=== PATIENT | male | born 1955 | race Caucasian/White ===

== ENCOUNTER 2016-07-03 15:55 | Observation (INO) | payer MEDICARE, MEDICAID ==
[~2016-07-03] VITALS: Ht 182.9 cm; Wt 118.4 kg
[~2016-07-03 15:55] MED LIST: ABILIFY2 MG; ACETAMINOPHEN325 M2 PO; ADVAIR 250/5028 PUFF IN; AMITRIPTYLINE50 MG PO; CARAFATE1 GM PO; CEFEPIME1 GM/50 ML IV; CEFTIN500 MG PO; CELEXA40 MG PO; CHEWABLE ASPIRI81 MG PO; CITALOPRAM20 MG PO; COUMADIN5 MG PO; COUMADIN7.5 MG PO; DIAZEPAM5 M1 PO; DICYCLOMINE HCL10 MG PO; DUONEB 3 MG/3 ML3 ML IH; GABAPENTIN 600600 MG PO; GABAPENTIN300 MG PO; GUAIFENESIN LA600 MG PO; IPRATROPIUM BROM3 M1 IN; KEFLEX 500MG.500 MG PO; LASIX 20MG. TAB20 MG PO; LEVAQUIN 5500 MG/100 IV; LEVAQUIN500 MG PO; LISINOPRIL 10MG10 MG PO; LOVENOX 4040 MG/0.4 SC; MEDROL 4MG. DOSE4 MG PO; METFORMIN500 MG PO; METHYLPREDNISOLONE IV; METOPROLOL25 MG PO; METROGEL0.75% EX; MORPHINE SULFAT PO; MORPHINE SULFAT30 M3 PO; MOTRIN800 MG PO; MS CONTIN 30MG.30 MG PO; NICOTINE PATCH;21 MG TD; NYSTATIN 1100000 UNI PO; OMEPRAZOLE40 MG PO; PLAVIX75 MG PO; POTASSIUM CHLO10 ME3 PO; PREDNISONE 10MG10 MG PO; PREDNISONE 5MG.5 MG PO; SEROQUEL 25MG T25 MG PO; SIMVASTATIN40 MG PO; SINGULAIR10 MG PO; SPIRIVA HA1 PUFF/INH IH; VALIUM 5MG TABLE5 MG PO; VALIUM5 MG PO; VITAMIN C1000 M1 PO
[2016-07-03 15:56] VITALS: BP 153/76
[2016-07-03 16:22] LABS: HEMOGLOBIN 13.2 g/dL (14.1-18.0); LYMPH # 2.3 K/mm3 (0.7-4.5); LYMPH % 21.3 % (10-50)
[2016-07-03 16:45] LABS: BUN 9 mg/dL (7-18)
[2016-07-03 16:46] LABS: GFR (ESTIMATED) 76 ML/MIN (>60)
--- NOTE | 2016-07-03 16:51 | Emergency Room Report ---
History of Present Illness Time Seen by 1601 Presenting Problem in Triage Pt arrived:Wheelchair Presenting Problem:PT C/O S DAYS INCREASING SOA. PT PRESENTS WITH PRODUCTIVE COUGH OF THICK YELLOW SPUTUM AND DIAPHORETIC. PT WAS SEEN IN DR VIVAR'S OFFICE THIS AM D/T OPIATE INDUCED CONSTIPATION. 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 N Clinical Suspician of Infection? N Mental Status: 1 - Regular (Normal Baseline) Sepsis Risk:Severe Sepsis Risk Have you (or family members/close friends) recently traveled outside the [place]? N If Yes, where/when: Have you had exposure to infectious disease within the past month? N TB? Other? Specify: Comment The patient complains of shortness of breath and a productive cough. He has had a low-grade fever and rhinorrhea. This started on Saturday 5 days ago. He saw his PCP today for constipation and says he also mentioned to the productive cough was not started on medications. He was sent here for an acute abdominal series. After having this done he was walking out of the hospital when he began getting very short of breath and sweaty. He has severe chronic obstructive pulmonary disease and is on oxygen 2 L continuously. He uses nebulizer treatments at home. ALLERGIES Coded Allergies: Penicillins (Mild, 07/03/16) Sulfa (Sulfonamide Antibiotics) (Mild, 07/03/16) Home Medications Active Scripts Metformin HCL (Metformin) 500 MG PO BID #60 TAB Ref 2 Prov: 10/05/12 Reported Medications FLUTICASONE/SALMETEROL (Advair 250-50 Diskus) 1 PUFF IN BID AMITRIPTYLINE HCL (Amitriptyline HCl) 50 MG PO QHS Gabapentin (Gabapentin 300MG) 600 MG PO TID Furosemide (Lasix 20MG) 20 MG PO DAILY CITALOPRAM HYDROBROMIDE (Citalopram HBr) 40 MG PO DAILY #30 TAB MORPHINE SULFATE SR/ER (Morphine Sulfate ER) 60 MG PO Q12H Diazepam (Valium 5MG) 5 MG PO BIDP Albuterol/Ipratropiu (Duoneb) 3 ML IH BID Sucralfate (Carafate) 1 GM PO BID Ascorbic Acid (Vitamin C) 1,000 mg PO DAILY Lactulose (Lactulose) 10 GM PO BID #300 Gabapentin 300 MG PO BID #540 Aspirin (Aspirin, Chewable) 81 MG PO DAILY Clopidogrel Bisulfate (Plavix) 75 MG PO DAILY LISINOPRIL (Lisinopril) 10 MG PO DAILY Metoprolol Tartrate (Metoprolol) 12.5 MG PO BID Omeprazole (Omeprazole 40MG) 40 MG PO DAILY Simvastatin (Simvastatin 40MG Tab) 40 MG PO QHS Tiotropium [place] (Spiriva) 1 PUFF IH DAILY History Medical History General CAD? No Angina: No NC: Yes Hypertension? Yes Hyperlipidemia? Yes CHF? No DVT? No PE? No COPD? Yes Asthma? No Anemia? No GERD? No Gastric ulcers? No GI Bleed? No Hernia? Yes Thyroid Problems? No Hypothyroidism? No CVA? No Seizures? No Diabetes? No Renal Insuffiency? No End Stage Renal Disease? No UTI? No Stones? No BPH? No GB Disease: Yes Nephritic Syndrome? No Asplenia? No Hepatitis? No Sickle Cell Disease? No Arthritis? No Migraines? No Cataracts? No Glaucoma? No MRSA? No HIV? No TB? No Anxiety? No Depression? No Cancer? No More? No Immunization Hx DT/Tetanus 5-10 YRS Flu UNKNOWN Pneumonia Received In Past Surgical Hx Previous Surgery?Y HERNIA X3 NECK FUSION 2 VERTEBRAE Family History Family Hx Diabetes Yes CAD Yes Hypertension Yes Hyperlipidemia Yes Cancer Yes TB No Social History Smoking Hx Smoker: Former Smoker Tobacco: Yes Type Cigarettes Alcohol Alcohol: No Review of Systems All Other Systems Reviewed and Negative Constitutional diaphoresis, fever ENT nose discharge. Respiratory cough, shortness of breath Cardiovascular denies chest pain Gastrointestinal denies diarrhea, denies vomiting Physical Exam Vital Signs Vital Signs Date Time Temp Pulse Resp B/P Pulse O2 O2 Flow FiO2 Ox Delivery Rate 07/03 1824 99.6 114 18 124/65 91 3 07/03 1823 99.6 114 18 124/65 91 3 07/03 1758 117 07/03 1758 99.6 117 18 120/69 07/03 1758 96 OXYGEN 07/03 173 117 18 120/69 96 2 07/03 1637 117 16 99/45 95 2 07/03 1556 99.6 130 24 153/76 88 2 General Appearance mild distress, obese Eye Exam - bilateral eye normal exam, bilateral eye PERRL, bilateral eye EOMI Ear, Nose, Throat hearing grossly normal, normal ENT inspection Neck normal inspection, non-tender, supple, full range of motion Respiratory Status Yes: trachea midline, chest symmetrical. No: respiratory distress (tachypnea). Lung Sounds bilateral: rhonchi, wheezing. 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 No Results/Orders Laboratory Tests 07/03/16 1610: Lactic Acid 3.2 H 07/03/16 1610: Sodium 140, Potassium 4.0, Chloride 102, Carbon Dioxide 27, BUN 9, Creatinine 1.0, Estimated Creat Clear 131, Estimated GFR (MDRD) 76, Glucose 112 H, Calcium 9.1, Total Bilirubin 0.4, AST 10 L, ALT 22, Alkaline Phosphatase 136 H, Creatine Kinase 72, CK-MB (CK-2) Rel Index 3.2, CK and CKMB Interp 2.3, Troponin I < 0.02, Total Protein 7.6, Albumin 2.9 L, Globulin 4.7 H, Albumin/Globulin Ratio 0.6 L, WBC 10.6, RBC 4.66, Hgb 13.2 L, Hct 40.3 L, MCV 86.6, RDW 13.4, Plt Count 362, MPV 5.5 L, Gran % 71.5, Gran # 7.6, Lymphocytes % 21.3, Monocytes % 4.8, Eosinophils % 2.1, Basophils % 0.3, Lymphocytes # 2.3, Monocytes # 0.5, Eosinophils # 0.2, Basophils # 0.0, PUBS MCHC 32.8, MCH 28.4 Current Medication Orders Sig/Josephine Start time Last Medication Dose Route Stop Time Status Admin Aspirin 81 MG DAILY 07/04 899 UNV PO Citalopram 40 MG DAILY 07/04 899 UNV Hydrobromide PO Clopidogrel Bisulfate 75 MG DAILY 07/04 09 UNV PO Levofloxacin/Dextrose 150 ML DAILY 07/04 09 UNVr IV 07/08 1030 Lisinopril 10 MG DAILY 07/04 899 UNV PO Amitriptyline HCl 50 MG QHS 07/03 2100 UNV PO Gabapentin 600 MG TID 07/03 2100 UNV PO Metformin HCl 500 MG BID 07/03 2100 UNV PO Methylprednisolone 80 MG Q8 07/03 2100 UNV Sodium Succinate IV Metoprolol Tartrate 12.5 MG BID 07/03 2100 UNV PO Pantoprazole Sodium 40 MG QHS 07/03 2100 UNV PO Sucralfate 1 GM BID 07/03 2100 UNV PO Albuterol/Ipratropium 3 ML QIDRT 07/03 2000 UNV INH Morphine Sulfate 60 MG Q12H 07/03 1830 UNV 07/03 PO 1840 Acetaminophen 650 MG Q4HP PRN 07/03 1815 UNV PO Nicotine 21 MG DAILYP PRN 07/03 1815 UNV TD Sodium Chloride 10 ML PRN PRN 07/03 1815 UNV IV Albuterol/Ipratropium 0 .STK-MED ONE 07/03 1739 DC INH Albuterol/Ipratropium 3 ML ONCE ONE 07/03 1730 DC 07/03 INH 07/03 1731 1741 Levofloxacin/Dextrose 150 ML ONCE ONE 07/03 1730 DC 07/03 IV 07/03 1859 1731 Methylprednisolone 125 MG ONCE ONE 07/03 1730 DC 07/03 Sodium Succinate IV 07/03 1731 1732 Levofloxacin/Dextrose 150 ML .STK-MED ONE 07/03 1729 DC IV Methylprednisolone 0 .STK-MED ONE 07/03 1729 DC Sodium Succinate .ROUTE Sodium Chloride 10 ML PRN PRN 07/03 1615 AC IV 07/04 1607 Orders Procedure Date/time Status DIET-REGULAR ( TOLERATED) 07/04 B Active RT Aerosol Treatment, Provide 07/03 1744 Active Decision to admit 07/03 1726 Active RT REQUEST DUONEB 07/03 1718 Active LACTIC ACID FOLLOW UP 07/03 1639 Active 12 LEAD EKG-MATT (INITIAL) 07/03 1608 Active ELECTROCARDIOGRAM REQUEST 07/03 1608 Active IV SALINE LOCK 07/03 1608 Active OXYGEN PER NURSE 07/03 1608 Active CULTURE, SPUTUM 07/03 1608 Active CULTURE, BLOOD 07/03 1608 Active LACTIC ACID 07/03 1608 Complete CBC WITH AUTO DIFF 07/03 1608 Complete CARDIAC ENZYMES 07/03 1608 Complete CHEM 12 PROFILE 07/03 1608 Complete ADMIT PATIENT 07/03 UNK Active PULSE OXIMETRY REQUEST 07/03 UNK Active OXYGEN REQUEST 07/03 UNK Active RT REQUEST DUONEB 07/03 UNK Active VITAL SIGNS 07/03 UNK Active POM NURSE KASSI HOSE ORDER 07/03 UNK Active IV SALINE LOCK 07/03 UNK Active CODE STATUS 07/03 UNK Active PATIENT ACTIVITY ORDER 07/03 UNK Active CM/EKG CM/EKG Comments EKG interpreted by Uday Marmolejo MD: Rhythm: sinus tachycardia Rate: 120 [place]: normal Ectopy: Occasional unifocal PVCs Conduction: Normal ST Segment Changes: none T Wave Changes: none Q Waves: none No evidence of acute ischemia or injury Baseline artifact present, but I consider the EKG adequate for accurate interpretation. XRAY/CT/US XRAY/CT/US XRAY abdomen Comment X-ray interpreted by radiologist: No pneumonia. Scarring and RIGHT base. Constipation. Progress - 5:24 PM: I have discussed the case with Dr. Vivar who agrees to admit the patient to the hospital. We discussed the patient's clinical information, including history, exam, laboratory and radiology results and ED course. Per hospital procedure, I will write temporary bridge inpatient orders on the patient. Specific orders requested by the admitting physician: Levaquin, steroids, nebulizer treatments Departure Departure Disposition Still a Patient Clinical Impression Primary Impression: Chronic obstructive pulmonary disease with (acute) exacerbation Secondary Impressions: Acute bronchitis Qualifiers: Bronchitis organism: unspecified organism Qualified Code: J20.9 - Acute bronchitis, unspecified Condition STABLE Referrals Chelsea Vivar MD ([facility]) ED Critical Care Critical Care No at 2017
[2016-07-03 17:58] VITALS: BP 120/69
[2016-07-03] MEDS ORDERED: LACTULOSE10 GM/15 M PO (18:15)
[2016-07-03] MEDS ORDERED: GABAPENTIN300 M1 PO (18:16)
[2016-07-03 18:46] VITALS: BP 116/59
[2016-07-03 20:30] VITALS: BP 133/72
[2016-07-03 21:12] VITALS: BP 133/72
[2016-07-04 04:39] VITALS: BP 108/48
[2016-07-04 07:59] VITALS: BP 140/92
--- NOTE | 2016-07-04 08:10 | PHARMACY CLINIC NOTE ---
Patient Demographics Patient Demographics Admission date: 07/03/16 Date: 07/04/16 Time: 0809 Allergies Coded Allergies: Penicillins (Mild, 07/03/16) Sulfa (Sulfonamide Antibiotics) (Mild, 07/03/16) HEIGHT- FT: 6 IN: 0.00 K.389 VTE General Information Labs: Laboratory Tests 07/03 1610 Hematology Hgb (14.1 - 18.0 g/dL) 13.2 L Hct (42.0 - 52.0 %) 40.3 L Plt Count (142 - 424 K/mm3) 362 Disclaimer The following section includes nursing documentation that has been pulled in for pharmacy review. Patient's VTE score: 4 Patient's VTE Risk: LOW RISK Clinical trial participant? No VTE prophylaxis [id number] [id number] VTE prophylaxis ordered? Yes Type of prophylaxis/treatment: KASSI at 0809
[2016-07-04] MEDS ORDERED: SINGULAIR 10 MG10 MG PO (08:45)
[2016-07-04] MEDS ORDERED: CILOSTAZOL50 MG PO (08:47)
--- NOTE | 2016-07-04 09:05 | HISTORY AND PHYSICAL REPORT ---
History and Physical ([facility]) Date of admission: 07/03/16 Chief complaint: Shortness of breath History: History of Present Illness: Mr Novak is a 61 year old male with a history of O2 dependent COPD, chronic low back pain, chronic constipation, PVD, and Type 2 DM who was seen in the office of [facility] 07/03/16 for constipation. X-rays were ordered. When walking in hallway to have x-ray done, he became extremely SOB with wheezing and thus went to the ER. After evaluation in the ER, he was admitted for further evaluation and treatment. This AM he is not feeling any better. He had a bad night due to continued SOB, constipation and muscle spasms in his back. Past Medical History: Medical History: CAD? Yes Angina: No ND: Yes Hypertension? Yes Hyperlipidemia? Yes CHF? No DVT? No PE? No COPD? Yes Asthma? No Anemia? No GERD? Yes Gastric ulcers? No GI Bleed? No Hernia? Yes Thyroid Problems? No Hypothyroidism? No CVA? No Seizures? No Diabetes? Yes Renal Insuffiency? No UTI? No Stones? No BPH? No GB Disease: Yes Nephritic Syndrome? No Asplenia? No Hepatitis? No Sickle Cell Disease? No Arthritis? No Migraines? No Cataracts? No Glaucoma? No MRSA? No HIV? No TB? No Anxiety? No Depression? Yes Cancer? No More? No Additional hx: PVD Surgical history: Previous Surgery?Y HERNIA X3 NECK FUSION 2 VERTEBRAE Medications: Active Scripts Metformin HCL (Metformin) 500 MG PO BID #60 TAB Ref 2 Prov: 10/05/12 Reported Medications Montelukast Sodium (Singulair 10MG) 10 MG PO DAILY Cilostazol 50 MG PO BID FLUTICASONE/SALMETEROL (Advair 250-50 Diskus) 1 PUFF IN BID AMITRIPTYLINE HCL (Amitriptyline HCl) 50 MG PO QHS Furosemide (Lasix 20MG) 20 MG PO DAILY CITALOPRAM HYDROBROMIDE (Citalopram HBr) 40 MG PO DAILY #30 TAB MORPHINE SULFATE SR/ER (Morphine Sulfate ER) 60 MG PO Q12H Diazepam (Valium 5MG) 5 MG PO BIDP Albuterol/Ipratropiu (Duoneb) 3 ML IH BID Sucralfate (Carafate) 1 GM PO BID Ascorbic Acid (Vitamin C) 1,000 mg PO DAILY Lactulose (Lactulose) 10 GM PO BID #300 Gabapentin 300 MG PO BID #540 Aspirin (Aspirin, Chewable) 81 MG PO DAILY Clopidogrel Bisulfate (Plavix) 75 MG PO DAILY LISINOPRIL (Lisinopril) 10 MG PO DAILY Metoprolol Tartrate (Metoprolol) 12.5 MG PO BID Omeprazole (Omeprazole 40MG) 40 MG PO DAILY Simvastatin (Simvastatin 40MG Tab) 40 MG PO QHS Tiotropium [place] (Spiriva) 1 PUFF IH DAILY Discontinued Reported Medications Gabapentin (Gabapentin 300MG) 600 MG PO TID Allergies: Coded Allergies: Penicillins (Mild, 07/03/16) Sulfa (Sulfonamide Antibiotics) (Mild, 07/03/16) Family History: Family history: Postive for: CAD, DM, HTN, cancer. Social History: Smoking Hx Tobacco: Yes Smoker: Former Smoker Type: Cigarettes Packs/day: N/A Are you exposed to second hand Yes Alcohol: Alcohol: No Hx of Drug Use: Drug Use? No Patien't marital status is: Review of Systems: Constitutional Positive for: weak. ENT No: ear ache, sore throat. Cardiovascular Positive for: edema. No: chest pain, palpitations. Respiratory Positive for: shortness of air, non-productive, productive cough (sputum). GI Positive for: GERD, constipation. No: abdominal pain, diarrhea, nausea, vomitting. (male) No: hematuria. Neurological No: confusion, dizziness, headache, seizure, syncope. Musculoskeletal Positive for: joint pain, lumbar pain. Psychiatric Positive for: depression. Physical Exam: Vital signs: 1ST Vital Signs Result Date Time Pulse Ox 88 07/03 1556 B/P 153/76 07/03 1556 O2 Flow Rate 2 07/03 1556 Temp 99.6 07/03 1556 Pulse 130 07/03 1556 Resp 24 07/03 1556 O2 Delivery OXYGEN 07/03 1758 Exam: General appearance: alert, no acute distress Eyes: anicteric, pupils reactive to light Cardiovascular: regular rate & rhythm Respiratory: decreased BS posteriorly; crackles in right base ABD: soft, bowel sounds present, distended, hernia Extremities: no peripheral edema Neuro: alert, oriented, speech clear, slight tremor Lab data: Labs: Laboratory Tests 07/03/162022: Lactic Acid 1.1 07/03/161609: Lactic Acid 3.2 H 07/03/161609: Sodium 140, Potassium 4.0, Chloride 102, Carbon Dioxide 27, BUN 9, Creatinine 1.0, Estimated Creat Clear 131, Estimated GFR (MDRD) 76, Glucose 112 H, Calcium 9.1, Total Bilirubin 0.4, AST 10 L, ALT 22, Alkaline Phosphatase 136 H, Creatine Kinase 72, CK-MB (CK-2) Rel Index 3.2, CK and CKMB Interp 2.3, Troponin I < 0.02, Total Protein 7.6, Albumin 2.9 L, Globulin 4.7 H, Albumin/Globulin Ratio 0.6 L, WBC 10.6, RBC 4.66, Hgb 13.2 L, Hct 40.3 L, MCV 86.6, RDW 13.4, Plt Count 362, MPV 5.5 L, Gran % 71.5, Gran # 7.6, Lymphocytes % 21.3, Monocytes % 4.8, Eosinophils % 2.1, Basophils % 0.3, Lymphocytes # 2.3, Monocytes # 0.5, Eosinophils # 0.2, Basophils # 0.0, PUBS MCHC 32.8, MCH 28.4 Microbiology 07/03 1609 BLOOD: Anaerobic Blood Culture - RECD 07/03 161 BLOOD: Aerobic Blood Culture - RECD 07/03 1610 BLOOD: Anaerobic Blood Culture - RECD 07/03 161 BLOOD: Aerobic Blood Culture - RECD 07/03 1608 SPUTUM: Sputum Culture - ORD 07/03 160 SPUTUM: Gram Stain - ORD Radiology results: Results: 07/03/16 acute abdominal series IMPRESSION: 1. COPD with chronic pulmonary parenchymal changes. 2. Constipation. Nonspecific bowel gas pattern. Diagnosis(es): 1. Chronic obstructive pulmonary disease with (acute) exacerbation Status: Acute 2. PVD Status: Chronic 3. Diabetes mellitus type 2 Status: Chronic 4. Constipation Status: Acute 5. Chronic obstructive lung disease Status: Chronic 6. Benign essential hypertension Status: Chronic Plan: Lactulose and supp for constipation; repeat CXR; steriods and ABX; sliding scale insulin (Stephanie Ann APRN) Date of admission: 07/03/16 Chief complaint: Shortness of breath Diagnosis(es): 1. Chronic obstructive pulmonary disease with (acute) exacerbation Status: Acute 2. PVD Status: Chronic 3. Diabetes mellitus type 2 Status: Chronic 4. Constipation Status: Acute 5. Chronic obstructive lung disease Status: Chronic 6. Benign essential hypertension Status: Chronic Plan: Pt seen and examined. Concur with above assessment and plan. (Chelsea Vivar MD) at 0905 at 0908
[2016-07-04 09:44] VITALS: BP 140/92
--- NOTE | 2016-07-04 09:49 | RADIOLOGY REPORT PS360 ---
CHEST(2 VIEWS-NOT PORTABLE) HISTORY: COPD; SOB ORDERING PHYSICIAN: Chelsea Vivar MD PATIENT AGE: 61 years COMPARISON: 10/02/2012 FINDINGS: There is mild hyperinflation suggesting COPD. Atelectatic or fibrotic changes are present in both right and left lower lung zones. There is some increased density in the left infrahilar region which may be due to atelectasis or infiltrate. The right hilum is prominent but not significant change from the previous exam. Bone plate is present over the lower cervical spine. IMPRESSION: COPD with chronic changes with atelectasis or infiltrate in the left lung base
[2016-07-04 15:59] VITALS: BP 122/64
[2016-07-04 20:37] VITALS: BP 117/67
[2016-07-04 22:27] VITALS: BP 117/67
[2016-07-05 04:47] VITALS: BP 120/72
[2016-07-05 07:30] VITALS: BP 111/64
--- NOTE | 2016-07-05 08:22 | ACUTE CARE PROGRESS NOTE (QUA) ---
Progress Notes Subjective Date 07/05/16 Time 0819 Note Pt feeling better today. Had a BM and SOA has improved. Still with some slight wheezing and dyspnea on exertion. Slept off and on and ate all of his breakfast. Objective Findings Last VS-Temp:97.7 B/P:111/64 Pulse:113 Resp:20 SaO2:93 OXYGEN Last weight lbs:261 oz:0 K.389 Method:Bed Scales Laboratory Tests 07/04/168: POC Glucose 233 H 07/04/16 1616: POC Glucose 279 H Microbiology 07/04 2121 SPUTUM: Sputum Culture - ORD 07/04 2121 SPUTUM: Gram Stain - ORD Exam General appearance: alert, awake, no acute distress Cardiovascular: regular rate & rhythm Respiratory: faint expiratory wheezes, no rales ABD: non-distended, normal bowel sounds, no rebound, soft, no tenderness, no guarding Extremities: no peripheral edema Assessment/Plan Problem List 1. Community acquired pneumonia Status: Acute 2. Chronic obstructive pulmonary disease with (acute) exacerbation Status: Acute 3. PVD Status: Chronic 4. Diabetes mellitus type 2 Status: Chronic 5. Constipation Status: Acute 6. Chronic obstructive lung disease Status: Chronic 7. Benign essential hypertension Status: Chronic Plan: Pt has improved. Stable to be discharged home on abx. Patient has oxygen at home. This inpt stay is expected to cross 2 MNs from start of care No (July Bradley) Subjective Date 07/05/16 Time 0828 Assessment/Plan Problem List 1. Community acquired pneumonia Status: Acute 2. Chronic obstructive pulmonary disease with (acute) exacerbation Status: Acute 3. PVD Status: Chronic 4. Diabetes mellitus type 2 Status: Chronic 5. Constipation Status: Acute 6. Chronic obstructive lung disease Status: Chronic 7. Benign essential hypertension Status: Chronic Plan: Concur with plans for discharge as outlined above. F/u in 1 week. (Chelsea Vivar MD) at 0821 at 0828
[2016-07-05] MEDS ORDERED: CEFUROXIME AXE500 MG PO (08:25)
[2016-07-05] MEDS ORDERED: ZITHROMAX Z PA250 MG PO (08:26)
[2016-07-05] MEDS ORDERED: LINZESS290 MCG PO (08:27)
[2016-07-05 08:40] VITALS: BP 111/64
[2016-07-05 09:57] VITALS: BP 111/64
--- OUTSIDE RECORDS SUMMARY | 2016-07-07 21:08 | External Medical Summary Rpt ---
Author Author , Organization [employer] Address Unknown Phone Unavailable Care Team Providers Care Start Up Specialist Name Role Phone [facility]available [facility] Unavailable [facility] Un[facility] Un[facility] Unavailable [facility] KIAN AUGUST, Unavailable Unavailable July AUGUST [facility] Un[facility] Un[facility], [facility] MARLEY HAYNES, MARLEY HAYNES Unavailable Unavailable Chelsea Vivar MD, Unavailable Unavailable Chelsea Vivar MD [facility] Unavailable Unavailable EQUIPME, [facility] Unavailable Unavailable [facility], [facility], Unavailable Unavailable [facility] Purpose Continuity of Care Document - 06-10-2012 through 2016 Problems Code Diagnosis DOS Provider Status J449 CHRONIC 04-25-2016 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 [id number] SPONDYLOSIS 11-13-2015 [facility] W/O HOME 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 M545 LOW BACK 11-13-2015 [facility] PAIN [facility] MEDICAL EQUIPME E119 TYPE 2 10-26-2015 [facility] DIABETES PHARMACY MELLITUS WITHOUT COMPLICATIO NS 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 R030 ELEVATED 07-15-2015 [facility] URE READING INC WITHOUT DX HTN 496 CHRONIC 11-25-2014 [facility] MEDICAL NEC EQUIPME 4439 UNSPECIFIED 09-08-2014 [facility] DISEASE 2724 OTHER AND 08-25-2014 [facility]PEC[facility] HYPERLIPIDE BRY 52722 OSTEOARTHRO 08-25-2014 [facility]PEC [facility] WHETHER INC GEN/LOC UNSPEC SITE 7962 ELEVATED BP 08-25-2014 [facility] WITHOUT DX INC HYPERTENSIO N V7644 SPECIAL 08-25-2014 [facility] NEOPLASM OF PROSTATE V5861 LONG-TERM 05-25-2014 [facility] (CURRENT) PHYSICIANS USE OF [place] ANTICOAGULA NTS 87474 DIAB W/O 04-03-2014 CLINIC COMP TYPE PHARMACY II/UNS NOT STATED UNCNTRL 4019 UNSPECIFIED 01-30-2014 [facility] HYPERTENSIO INC N [id number] [facility] 272.4 Hyperlipide [facility] 276.1 Hyponatremi [facility] 276.8 Hypokalemia [facility] 401.1 Benign [facility] n [id number] Diabetes [place] mellitus [address] 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.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 482.1 Pneumonia [place] due to [facility] [address] [facility] [id number] Active [facility] 593.9 Renal [place] impairment [facility] 780.57 Sleep apnea [facility] 799.02 Hypoxia [facility] [id number] Chronic [facility] E11.9 TYPE 2 DIABETES MELLITUS WITHOUT COMPLICATIO NS E78.4 OTHER HYPERLIPIDE [facility] J20.9 ACUTE BRONCHITIS, UNSPECIFIED J44.1 CHRONIC OBSTRUCTIVE PULMONARY DISEASE W (ACUTE) EXACERBATIO N Z12.5 ENCOUNTER FOR SCREENING FOR MALIGNANT NEOPLASM OF PROSTATE Allergies, Adverse Reactions, Alerts Type Drug Allergy Adverse Reaction to Substance Substance Reaction Severity PCN (penicillin) I-HIVES Intermediate Penicillin Unknown Unknown SULFA (sulfonamide) I-HIVES Intermediate Penicillin G Unknown Unknown Clinical Alert Notifications Alert Diabetes: no A1C in the last 6 months Diabetes: no eye exam in the last 365 days Diabetes: no influenza vaccine in the last 365 days Diabetes: no urine protein screening in the last 365 days Medications Na ND Rx Da Fi Fi Am Da Di Ph RX Ph St me C No te ll ll ou ys ag ar # ys at rm s nt no ma ic us Or Da si cy ia de te s n re d LE 68 07 0 No VO 08 -2 FL 40 8- Lo OX 48 20 ng AC 30 13 er IN 1 Ac 75 ti 0 ve MG TA BL ET LE 00 07 1 No XA 45 -2 ND 62 7- Lo O 02 20 ng 20 06 13 er 3 MG Ac ti TA ve BL ET ND 00 07 1 No ED 05 -2 NI 40 7- Lo SO 01 20 ng NE 72 13 er 0 10 Ac ti MG ve TA BL ET SO 00 07 1 No IRMA 00 -2 -M 90 6- Lo ED 03 20 ng RO 92 13 er L 8 40 Ac ti MG ve AL CO 00 07 2 No UM 05 -2 AD 60 6- Lo IN 17 20 ng 5 27 13 er 0 MG Ac ti TA ve BL ET LE 68 07 1 No VO 08 -2 FL 40 6- Lo OX 48 20 ng AC 30 13 er IN 1 Ac 75 ti 0 ve MG TA BL ET HU 00 07 2 No MA 00 -2 LO 27 6- Lo G 51 20 ng 10 01 13 er 0 7 UN Ac IT ti S/ ve ML AL FS 07 2 No -2 BL 6- Lo OO 20 ng D 13 er MAS GA Ac R ti ve SO 00 07 1 No IRMA 00 -2 -M 90 5- Lo ED 04 20 ng RO 72 13 er L 2 12 Ac 5 ti MG ve AL LO 00 07 2 No VE 07 -2 NO 50 5- Lo X 62 20 ng 40 04 13 er 1 MG Ac /0 ti .4 ve ML SY RI NG E LE 00 07 1 No XA 45 -2 ND 62 5- Lo O 02 20 ng 20 06 13 er 3 MG Ac ti TA ve BL ET MO 68 07 3 No NT 08 -2 EL 40 5- Lo UK 62 20 ng 00 13 er T 1 SO Ac D ti 10 ve MG TA BL ET SP 00 07 3 No IR 59 -2 IV 70 5- Lo A 07 20 ng 18 57 13 er 5 MC Ac G ti CP ve -H AN DI POON LE R MO 00 07 3 No RP 40 -2 HI 68 5- Lo NE 33 20 ng 00 13 er MAS 1 LF Ac ti ER ve 30 MG TA BL ET CO 00 07 3 No UM 05 -2 AD 60 5- Lo IN 17 20 ng 37 13 er 7. 5 5 Ac MG ti ve TA BL ET SO 00 07 0 No IRMA 00 -2 -M 90 4- Lo ED 04 20 ng RO 72 13 er L 2 12 Ac 5 ti MG ve AL MA 00 07 0 No PA 90 -2 P 41 4- Lo 32 98 20 ng 5 26 13 er MG 1 Ac TA ti BL ve ET Sa 63 07 4 No li 80 -2 ne 70 4- Lo 10 20 ng Fl 07 13 er us 5 h Ac 10 ti ML ve Sy ri ng e 63 07 4 No PI 73 -2 RI 90 4- Lo N 43 20 ng 81 40 13 er 1 MG Ac ti CH ve EW AB LE TA BL ET CL 51 07 4 No OP 07 -2 ID 90 4- Lo OG 55 20 ng RE 72 13 er L 0 75 Ac ti MG ve TA BL ET FU 51 07 4 No RO 07 -2 SE 90 4- Lo OH 07 20 ng DE 22 13 er 0 20 Ac ti MG ve TA BL ET Li 00 07 4 No si 17 -2 no 23 4- Lo pr 75 20 ng il 91 13 er 0 10 Ac MG ti ve Ta bl et MO 00 07 1 No RP 40 -2 HI 68 4- Lo NE 33 20 ng 00 13 er MAS 1 LF Ac ti ER ve 30 MG TA BL ET IP 00 07 4 No RA 48 -2 T- 70 4- Lo AL 20 20 ng BU 10 13 er T 1 0. Ac 5- ti 3( ve 2. 5) MG /3 ML GA 62 07 4 No BA 75 -2 PE 60 4- Lo NT 20 20 ng IN 20 13 er 1 60 Ac 0 ti MG ve TA BL ET ON 00 07 4 No DA 64 -2 NS 16 4- Lo ET 08 20 ng RO 02 13 er N 5 HC Ac L ti 4 ve MG /2 ML AL AM 51 07 4 No IT 07 -2 RI 90 4- Lo PT 13 20 ng YL 32 13 er IN 0 E Ac HC ti L ve 50 MG TA B ME 51 07 4 No TO 07 -2 ND 90 4- Lo OL 25 20 ng OL 52 13 er 0 TA Ac RT ti RA ve TE 25 MG TA B PA 51 07 4 No NT 07 -2 OP 90 4- Lo RA 05 20 ng ZO 12 13 er LE 0 Ac SO ti D ve DR 40 MG TA B ND 51 07 4 No AV 07 -2 90 4- Lo TA 78 20 ng TI 22 13 er N 0 SO Ac DI ti UM ve 40 MG TA B LE 25 07 0 No VO 02 -2 FL 10 4- Lo OX 13 20 ng AC 28 13 er IN 3 Ac 75 ti 0 ve MG /1 50 ML -D 5W CE 60 07 4 No FE 50 -2 PI 50 4- Lo ME 83 20 ng 40 13 er HC 4 L Ac 1 ti GM ve AL SO 00 07 4 No DI 40 -2 UM 97 4- Lo 98 20 ng CH 43 13 er LO 6 RI Ac DE ti ve 0. 9% SO IRMA TI ON Li 00 06 4 No si 17 -1 no 23 2- Lo pr 75 20 ng il 91 13 er 0 10 Ac MG ti ve Ta bl et CO 00 06 4 No UM 05 -1 AD 60 2- Lo IN 17 20 ng 5 27 13 er 0 MG Ac ti TA ve BL ET HE 00 06 4 No PA 40 -1 RI 97 2- Lo N- 76 20 ng D5 10 13 er W 3 25 Ac ,0 ti 00 ve UN IT /5 00 ML FU 51 06 4 No RO 07 -1 SE 90 2- Lo OH 07 20 ng DE 22 13 er 0 20 Ac ti MG ve TA BL ET Li 00 06 4 No si 17 -1 no 23 2- Lo pr 75 20 ng il 91 13 er 0 10 Ac MG ti ve Ta bl et SP 00 06 4 No IR 59 -1 IV 70 2- Lo A 07 20 ng 18 57 13 er 5 MC Ac G ti CP ve -H AN DI POON LE R LE 00 06 4 No XA 45 -1 ND 62 2- Lo O 02 20 ng 20 06 13 er 3 MG Ac ti TA ve BL ET AM 51 06 4 No IT 07 -1 RI 90 2- Lo PT 13 20 ng YL 32 13 er IN 0 E Ac HC ti L ve 50 MG TA B HE 00 06 1 No PA 40 -1 RI 97 1- Lo N- 76 20 ng D5 10 13 er W 3 25 Ac ,0 ti 00 ve UN IT /5 00 ML He 00 06 0 No pa 40 -1 ri 91 1- Lo n 40 20 ng 5, 23 13 er 00 1 0 Ac Un ti it ve s/ Ml Sy ri ng e Ga 00 06 5 No ba 17 -1 pe 24 1- Lo nt 44 20 ng in 31 13 er 0 60 Ac 0M ti G ve Ta bl et Pr 00 06 5 No av 59 -1 as 10 1- Lo ta 01 20 ng ti 61 13 er n 9 40 Ac MG ti ve Ta bl et MO 00 06 5 No NT 78 -1 EL 15 1- Lo UK 56 20 ng 09 13 er T 2 SO Ac D ti 10 ve MG TA BL ET ND 00 06 5 No ED 05 -1 NI 48 1- Lo SO 72 20 ng NE 42 13 er 5 5 Ac MG ti ve TA BL ET CO 00 06 0 No UM 05 -1 AD 60 1- Lo IN 17 20 ng 5 27 13 er 0 MG Ac ti TA ve BL ET AD 00 06 5 No VA 17 -1 IR 30 1- Lo 69 20 ng 25 60 13 er 0- 4 50 Ac ti DI ve SK US IP 00 06 5 No RA 48 -1 T- 70 1- Lo AL 20 20 ng BU 10 13 er T 1 0. Ac 5- ti 3( ve 2. 5) MG /3 ML He 00 06 0 No pa 40 -1 ri 91 1- Lo n 40 20 ng 5, 23 13 er 00 1 0 Ac Un ti it ve s/ Ml Sy ri ng e AM 51 06 1 No IT 07 -1 RI 90 1- Lo PT 10 20 ng YL 72 13 er IN 0 E Ac HC ti L ve 25 MG TA B CE 62 06 5 No PH 75 -1 AL 60 1- Lo EX 29 20 ng IN 48 13 er 8 50 Ac 0 ti MG ve CA PS UL E DI 51 06 5 No AZ 07 -1 EP 90 1- Lo AM 28 20 ng 5 52 13 er 0 MG Ac ti TA ve BL ET Ga 00 06 5 No ba 17 -1 pe 24 1- Lo nt 44 20 ng in 31 13 er 0 60 Ac 0M ti G ve Ta bl et ME 51 06 5 No TO 07 -1 ND 90 1- Lo OL 25 20 ng OL 52 13 er 0 TA Ac RT ti RA ve TE 25 MG TA B MO 00 06 5 No RP 40 -1 HI 68 1- Lo NE 33 20 ng 00 13 er MAS 1 LF Ac ti ER ve 30 MG TA BL ET PA 51 06 5 No NT 07 -1 OP 90 1- Lo RA 05 20 ng ZO 12 13 er LE 0 Ac SO ti D ve DR 40 MG TA B Pr 00 06 5 No av 59 -1 as 10 1- Lo ta 01 20 ng ti 61 13 er n 9 40 Ac MG ti ve Ta bl et [place] [address] 47 -1 AT 25 2- Lo IN 00 20 ng 36 13 er MAS 0 SP Ac ti 50 ve 0, 00 0 UN IT S/ 5M ND 00 04 3 No ED 05 -1 NI 40 0- Lo SO 01 20 ng NE 82 13 er 0 20 Ac ti MG ve TA BL ET LE 68 04 3 No VO 08 -1 FL 40 0- Lo OX 48 20 ng AC 30 13 er IN 1 Ac 75 ti 0 ve MG TA BL ET TO 63 04 0 No BR 32 -1 AM 30 0- Lo YC 30 20 ng IN 60 13 er 2 40 Ac ti MG ve /M L AL SO 00 04 0 No DI 40 -1 UM 97 0- Lo 98 20 ng CH 43 13 er LO 7 RI Ac DE ti ve 0. 9% SO IRMA TI ON LE 25 04 0 No VO 02 -0 FL 10 9- Lo OX 13 20 ng AC 28 13 er IN 3 Ac 75 ti 0 ve MG /1 50 ML -D 5W 63 04 4 No PI 73 -0 RI 90 9- Lo N 43 20 ng 81 40 13 er 1 MG Ac ti CH ve EW AB LE TA BL ET PL 63 04 4 No AV 65 -0 IX 31 9- Lo 17 20 ng 75 10 13 er 3 MG Ac ti TA ve BL ET LE 00 04 4 No XA 45 -0 ND 62 9- Lo O 02 20 ng 20 06 13 er 3 MG Ac ti TA ve BL ET FU 51 04 4 No RO 07 -0 SE 90 9- Lo OH 07 20 ng DE 22 13 er 0 20 Ac ti MG ve TA BL ET Li 00 04 4 No si 17 -0 no 23 9- Lo pr 75 20 ng il 91 13 er 0 10 Ac MG ti ve Ta bl et KL 00 04 4 No OR 24 -0 -C 50 9- Lo ON 04 20 ng 10 13 er 10 1 Ac ME ti Q ve TA BL ET LO 00 04 4 No VE 07 -0 NO 50 9- Lo X 62 20 ng 40 04 13 er 1 MG Ac /0 ti .4 ve ML SY RI NG E SP 00 04 4 No IR 59 -0 IV 70 9- Lo A 07 20 ng 18 57 13 er 5 MC Ac G ti CP ve -H AN DI POON LE R DI 51 04 4 No AZ 07 -0 EP 90 9- Lo AM 28 20 ng 5 52 13 er 0 MG Ac ti TA ve BL ET CE 60 04 5 No FE 50 -0 PI 50 8- Lo ME 83 20 ng 40 13 er HC 4 L Ac 1 ti GM ve AL SO 00 04 5 No DI 40 -0 UM 97 8- Lo 98 20 ng CH 43 13 er LO 6 RI Ac DE ti ve 0. 9% SO IRMA TI ON KL 00 04 0 No OR 24 -0 -C 50 8- Lo ON 04 20 ng 10 13 er 10 1 Ac ME ti Q ve TA BL ET Sa 63 04 5 No li 80 -0 ne 70 8- Lo 10 20 ng Fl 07 13 er us 5 h Ac 10 ti ML ve Sy ri ng e AP 42 04 0 No LI 02 -0 SO 30 8- Lo L 10 20 ng 5T 40 13 er 1 UN Ac IT ti S/ ve 0. 1 ML AL Ga 00 04 5 No ba 17 -0 pe 24 8- Lo nt 44 20 ng in 31 13 er 0 60 Ac 0M ti G ve Ta bl et IP 00 04 5 No RA 48 -0 T- 70 8- Lo AL 20 20 ng BU 10 13 er T 1 0. Ac 5- ti 3( ve 2. 5) MG /3 ML AD 00 04 5 No VA 17 -0 IR 30 8- Lo 69 20 ng 25 60 13 er 0- 4 50 Ac ti DI ve SK US Me 00 04 2 No th 00 -0 yl 90 8- Lo pr 19 20 ng ed 00 13 er ni 9 so Ac lo ti ne ve So d Mas cc in a Gu 63 04 5 No ai 82 -0 fe 40 8- Lo ne 00 20 ng si 84 13 er n 0 LA Ac ti 60 ve 0M G Ta bl et ME 51 04 5 No TO 07 -0 ND 90 8- Lo OL 25 20 ng OL 52 13 er 0 TA Ac RT ti RA ve TE 25 MG TA B MO 00 04 5 No RP 40 -0 HI 68 8- Lo NE 33 20 ng 00 13 er MAS 1 LF Ac ti ER ve 30 MG TA BL ET AM 51 04 5 No IT 07 -0 RI 90 8- Lo PT 13 20 ng YL 32 13 er IN 0 E Ac HC ti L ve 50 MG TA B ND 00 04 5 No OT 00 -0 ON 80 8- Lo IX 84 20 ng [address] 9 Ac 40 ti ve MG TA BL ET AN 00 04 5 No TA 11 -0 CI 30 8- Lo D [address] 74 13 er US 0 Ac AN ti TI ve -G RE LF LI Q Me 00 04 1 No th 00 -0 yl 90 7- Lo pr 19 20 ng ed 00 13 er ni 9 so Ac lo ti ne ve So d Mas cc in a LE 25 04 1 No VO 02 -0 FL 10 7- Lo OX 13 20 ng AC 28 13 er IN 3 Ac 75 ti 0 ve MG /1 50 ML -D 5W LE 25 04 0 No VO 02 -0 FL 10 6- Lo OX 13 20 ng AC 28 13 er IN 3 Ac 75 ti 0 ve MG /1 50 ML -D 5W CE 60 04 2 No FE 50 -0 PI 50 6- Lo ME 83 20 ng 40 13 er HC 4 L Ac 1 ti GM ve AL SO 00 04 2 No DI 40 -0 UM 97 6- Lo 98 20 ng CH 43 13 er LO 6 RI Ac DE ti ve 0. 9% SO IRMA TI ON Fu 00 04 3 No ro 17 -0 se 22 5- Lo mi 90 20 ng de 81 13 er 0 20 Ac MG ti ve Ta bl et Gu 63 04 3 No ai 82 -0 fe 40 5- Lo ne 00 20 ng si 84 13 er n 0 LA Ac ti 60 ve 0M G Ta bl et AZ 59 04 2 No IT 76 -0 HR 23 4- Lo OM 06 20 ng YC 00 13 er IN 3 Ac 25 ti 0 ve MG TA BL ET IP 00 04 5 No RA 48 -0 T- 70 3- Lo AL 20 20 ng BU 10 13 er T 1 0. Ac 5- ti 3( ve 2. 5) MG /3 ML DI 51 04 0 No AZ 07 -0 EP 90 3- Lo AM 28 20 ng 5 52 13 er 0 MG Ac ti TA ve BL ET Bi 51 04 0 No sa 07 -0 co 90 3- Lo dy 90 20 ng l 72 13 er 5M 0 G Ac Ta ti bl ve et MO 00 04 0 No RP 40 -0 HI 68 3- Lo NE 33 20 ng 00 13 er MAS 1 LF Ac ti ER ve 30 MG TA BL ET KL 00 04 4 No OR 24 -0 -C 50 3- Lo ON 05 20 ng 80 13 er M2 1 0 Ac TA ti BL ve ET Ga 00 04 5 No ba 17 -0 pe 24 3- Lo nt 44 20 ng in 31 13 er 0 60 Ac 0M ti G ve Ta bl et LE 00 04 5 No XA 45 -0 ND 62 3- Lo O 02 20 ng 20 06 13 er 3 MG Ac ti TA ve BL ET AD 00 04 5 No VA 17 -0 IR 30 3- Lo 69 20 ng 25 60 13 er 0- 4 50 Ac ti DI ve SK US AZ 00 04 0 No IT 40 -0 HR 90 3- Lo OM 14 20 ng YC 41 13 er IN 1 Ac I. ti V. ve 50 0 MG AL SO 00 04 0 No DI 40 -0 UM 97 3- Lo 10 20 ng CH 10 13 er LO 2 RI Ac DE ti ve 0. 9% SO LN SO 00 04 6 No DI 40 -0 UM 97 2- Lo 98 20 ng CH 30 13 er LO 9 RI Ac DE ti ve 0. 9% SO IRMA TI ON Sa 63 04 6 No li 80 -0 ne 70 2- Lo 10 20 ng Fl 07 13 er us 5 h Ac 10 ti ML ve Sy ri ng e TY 50 04 0 No LE 58 -0 NO 00 2- Lo L 45 20 ng EX 10 13 er -S 3 TR Ac ti 50 ve [address] ET Me 00 04 0 No th 00 -0 yl 90 2- Lo pr 19 20 ng ed 00 13 er ni 9 so Ac lo ti ne ve So d Mas cc in a LO 00 04 6 No VE 07 -0 NO 50 2- Lo X 62 20 ng 40 04 13 er 1 MG Ac /0 ti .4 ve ML SY RI NG E 63 04 6 No PI 73 -0 RI 90 2- Lo N 43 20 ng 81 40 13 er 1 MG Ac ti CH ve EW AB LE TA BL ET PL 63 04 6 No AV 65 -0 IX 31 2- Lo 17 20 ng 75 10 13 er 3 MG Ac ti TA ve BL ET Li 00 04 6 No si 17 -0 no 23 2- Lo pr 75 20 ng il 91 13 er 0 10 Ac MG ti ve Ta bl et Me 00 04 5 No th 00 -0 yl 90 2- Lo pr 19 20 ng ed 00 13 er ni 9 so Ac lo ti ne ve So d Mas cc in a ME 51 04 6 No TO 07 -0 ND 90 2- Lo OL 25 20 ng OL 52 13 er 0 TA Ac RT ti RA ve TE 25 MG TA B Ga 68 04 1 No ba 08 -0 pe 40 2- Lo nt 08 20 ng in 00 13 er 1 30 Ac 0M ti G ve Ca ps ul e CE 00 04 1 No FT 40 -0 RI 97 2- Lo AX 33 20 ng ON 30 13 er E 4 1 Ac GM ti ve AL So 00 04 1 No d 07 -0 Ch 47 2- Lo lo 10 20 ng ri 11 13 er de 3 Ac 0. ti 9% ve 50 ML Ad v AZ 00 04 1 No IT 40 -0 HR 90 2- Lo OM 14 20 ng YC 41 13 er IN 1 Ac I. ti V. ve 50 0 MG AL So 00 04 4 No d 07 -0 Ch 47 2- Lo lo 10 20 ng ri 11 13 er de 3 Ac 0. ti 9% ve 50 ML Ad v Vital Signs 10-05-2012 13:31 Name Value Interpretat Reference Comment ion Range Body 97.7 [degF] Temperature BP 60 mm[Hg] Diastolic BP Systolic 114 mm[Hg] Heart 95 /min Rate/Pulse Respiratory 24 /min Rate 10-05-2012 04:00 Name Value Interpretat Reference Comment ion Range O2% 96 % 10-01-2012 12:00 Name Value Interpretat Reference Comment ion Range Height 182.88 cm Weight 119.495 kg Measured 10-01-2012 08:14 Name Value Interpretat Reference Comment ion Range Body 100.3 Temperature [degF] BP 80 mm[Hg] Diastolic BP Systolic 161 mm[Hg] Heart 125 /min Rate/Pulse O2% 94 % Respiratory 24 /min Rate Weight 0 [oz_av] Measured 08-24-2012 10:00 Name Value Interpretat Reference Comment ion Range Body 98.5 [degF] Temperature BP 62 mm[Hg] Diastolic BP Systolic 142 mm[Hg] Heart 101 /min Rate/Pulse Respiratory 18 /min Rate 08-24-2012 04:00 Name Value Interpretat Reference Comment ion Range O2% 90 % 08-19-2012 20:00 Name Value Interpretat Reference Comment ion Range O2% 96 % 08-19-2012 17:40 Name Value Interpretat Reference Comment ion Range Body 98.3 [degF] Temperature BP 77 mm[Hg] Diastolic BP Systolic 138 mm[Hg] Height 182.88 cm Respiratory 24 /min Rate Weight 259 [lb_av] Measured Weight 117.709 kg Measured 08-19-2012 17:23 Name Value Interpretat Reference Comment ion Range Heart 95 /min Rate/Pulse 06-21-2012 12:00 Name Value Interpretat Reference Comment ion Range Body 98.5 [degF] Temperature BP 72 mm[Hg] Diastolic BP Systolic 138 mm[Hg] Heart 106 /min Rate/Pulse Respiratory 20 /min Rate 06-21-2012 08:00 Name Value Interpretat Reference Comment ion Range O2% 98 % 06-16-2012 20:00 Name Value Interpretat Reference Comment ion Range O2% 97 % 06-16-2012 15:53 Name Value Interpretat Reference Comment ion Range Body 98.1 [degF] Temperature BP 72 mm[Hg] Diastolic BP Systolic 118 mm[Hg] Heart 83 /min Rate/Pulse Respiratory 20 /min Rate Weight 248 [lb_av] Measured Weight 112.577 kg Measured 06-16-2012 11:38 Name Value Interpretat Reference Comment ion Range Body 97.8 [degF] Temperature BP 72 mm[Hg] Diastolic BP Systolic 132 mm[Hg] Heart 85 /min Rate/Pulse O2% 98 % Respiratory 24 /min Rate 06-10-2012 21:20 Name Value Interpretat Reference Comment ion Range Height 182.88 cm Weight 125.193 kg Measured 06-10-2012 19:27 Name Value Interpretat Reference Comment ion Range Body 103 [degF] Temperature BP 100 mm[Hg] Diastolic BP Systolic 151 mm[Hg] Heart 141 /min Rate/Pulse O2% 91 % Respiratory 25 /min Rate Weight 00 [oz_av] Measured Results Labs Lab Lab Date Result Refere Interp Status Commen Order Detail nces retati t Range on Glucose BldC [facility] (10-05-2012 11:32) Glucose 186 70-110 complet BldC 013 mg/dl ed Glucomt 11:32 r-nc Glucose dC [facility] (10-05-2012 06:21) Glucose 204 70-110 complet BldC 013 mg/dl ed Glucomt 06:21 r-mCnc Glucose BldC [facility] (10-04-2012 20:05) Glucose 290 70-110 complet BldC 013 mg/dl ed Glucomt 20:05 r-mCnc Glucose BldC [facility] (10-04-2012 16:44) Glucose 339 70-110 High complet BldC 013 mg/dl alert ed Glucomt 16:44 r-mCnc Glucose BldC [facility] (10-04-2012 11:59) Glucose 203 70-110 complet BldC 013 mg/dl ed Glucomt 11:59 r-nc Glucose BldC [facility] (10-04-2012 06:40) Glucose 261 70-110 complet BldC 013 mg/dl ed Glucomt 06:40 r-[facility] BASIC METABOLIC PANEL (10-04-2012 06:20) Glucose 257 74-106 complet 013 mg/dL ed Bld-mCn 06:20 c BUN 2 16 7-18 complet Bld-mCn 013 mg/dL ed c 06:20 Creat 1.0 0.8-1.3 complet SerPl-m 013 mg/dL ed Cnc 06:20 ESTIMAT 139 50-200 complet ED 013 ML/MIN ed CREATIN 06:20 INE CLEARAN CE GFR 77 Greater complet (ESTIMA 013 ML/MIN than ed KASSI) 06:20 60 Sodium 136 136-145 complet SerPl-s 013 mmoL/L ed Cnc 06:20 Potassi 4.5 3.5-5.1 complet um 013 mmoL/L ed SerPl-s 06:20 Cnc Chlorid 101 98-107 complet e 013 mmoL/L ed SerPl-s 06:20 Cnc CO2 32 21.0-32 complet SerPl-s 013 mmoL/L .0 ed Cnc 06:20 Calcium 8.6 8.5-10. complet 013 mg/dL 1 ed SerPl-m 06:20 Cnc PROTIME/INR (10-04-2012 06:20) PROTHRO 2 22.0 9.9-11. complet MBIN 013 SECONDS 6 ed TIME 06:20 INR Bld 2 2.04 0.9-1.1 complet 013 UNK ed 06:20 CBC with AUTO DIFF (10-04-2012 06:20) WBC # 10-04-2 9.5 4.8-10. complet Bld 013 K/MM3 8 ed Auto 06:20 RBC # 10-04-2 4.01 4.6-6.2 complet Bld 013 M/mm3 ed Auto 06:20 Hgb 2 10.7 14.1-18 complet Bld-mCn 013 g/dL .0 ed c 06:20 Hct Fr 34.5 % 42.0-52 complet Bld 013 .0 ed 06:20 MCV RBC 86.1 fl 82.2-97 complet 013 .8 ed 06:20 MCH RBC 26.7 pg 27-31.2 complet Qn 013 ed Auto 06:20 MEAN 0727-2 31.0 31.8-35 complet CORPUSC 013 g/dl .4 ed ULAR 06:20 HGB CONC RDW RBC 10-04-2 15.4 % 11.5-17 complet Auto 013 .5 ed 06:20 Platele -27-2 514 142-424 complet t Bld 013 K/mm3 ed Ql 06:20 Manual MEAN 10-04-2 6.8 fl 7.4-10. complet PLATELE 013 4 ed T 06:20 VOLUME Granulo -27-2 83.2 % 37.0-80 complet cytes 013 .0 ed Fr Bld 06:20 Auto LYMPH % 07-27-2 12.9 % 10-50 complet 013 ed 06:20 Monocyt 07-27-2 3.7 % 1.7-9.3 complet es Fr 013 ed Bld 06:20 Auto Eosinop 07-27-2 0.1 % 0.1-12. complet hil Fr 013 0 ed Bld 06:20 Auto Basophi 07-27-2 0.1 % 0.1-2.0 complet ls Fr 013 ed Bld 06:20 Auto Granulo 07-27-2 7.9 1.3-8.0 complet cytes # 013 K/mm3 ed Bld 06:20 Auto Lymphoc 07-27-2 1.2 0.7-4.5 complet ytes Fr 013 K/mm3 ed Bld 06:20 Auto Monocyt 07-27-2 0.4 0.1-1.0 complet es # 013 K/mm3 ed Bld 06:20 Auto Eosinop 07-27-2 0.0 0.0-0.4 complet hil # 013 K/mm3 ed Bld 06:20 Auto Basophi 07-27-2 0.0 0-0.2 complet ls # 013 K/MM3 ed Bld 06:20 Auto Glucose BldC [facility]com[facility] (10-03-2012 22:06) Glucose 10-03-2 261 70-110 complet BldC 013 mg/dl ed Glucomt 22:06 r-[facility] Glucose BldC [facility] (10-03-2012 16:43) Glucose 10-03-2 182 70-110 complet BldC 013 mg/dl ed [facility] (10-[facility]-2012 11:27) Glucose 254 70-110 complet BldC 013 mg/dl ed [facility] 11:27 [facility] BASIC METABOLIC PANEL (10-03-2012 06:35) Glucose 446 74-106 complet 013 mg/dL ed Bld-mCn 06:35 c BUN 19 7-18 complet Bld-mCn 013 mg/dL ed c 06:35 Creat 1.1 0.8-1.3 complet SerPl-m 013 mg/dL ed Cnc 06:35 ESTIMAT 127 50-200 complet ED 013 ML/MIN ed CREATIN 06:35 INE CLEARAN CE GFR 69 Greater complet (ESTIMA 013 ML/MIN than ed KASSI) 06:35 60 Sodium 133 136-145 complet SerPl-s 013 mmoL/L ed Cnc 06:35 Potassi 4.7 3.5-5.1 complet um 013 mmoL/L ed SerPl-s 06:35 Cnc Chlorid 98 98-107 complet e 013 mmoL/L ed SerPl-s 06:35 Cnc CO2 30 21.0-32 complet SerPl-s 013 mmoL/L .0 ed Cnc 06:35 Calcium 8.8 8.5-10. complet 013 mg/dL 1 ed SerPl-m 06:35 Cnc CBC with AUTO DIFF (10-03-2012 06:35) WBC # 10-03-2 12.6 4.8-10. complet Bld 013 K/MM3 8 ed Auto 06:35 RBC # 10-03-2 4.02 4.6-6.2 complet Bld 013 M/mm3 ed Auto 06:35 Hgb 10.6 14.1-18 complet Bld-mCn 013 g/dL .0 ed c 06:35 Hct Fr 34.7 % 42.0-52 complet Bld 013 .0 ed 06:35 MCV RBC 86.5 fl 82.2-97 complet 013 .8 ed 06:35 MCH RBC 07-26-2 26.5 pg 27-31.2 complet Qn 013 ed Auto 06:35 MEAN 10-03-2 30.6 31.8-35 complet CORPUSC 013 g/dl .4 ed ULAR 06:35 HGB CONC RDW RBC 10-03-2 15.3 % 11.5-17 complet Auto 013 .5 ed 06:35 Platele 10-03-2 499 142-424 complet t Bld 013 K/mm3 ed Ql 06:35 Manual MEAN 10-03-2 7.0 fl 7.4-10. complet PLATELE 013 4 ed T 06:35 VOLUME Granulo 10-03-2 90.1 % 37.0-80 complet cytes 013 .0 ed Fr Bld 06:35 Auto LYMPH % 10-03-2 7.0 % 10-50 complet 013 ed 06:35 Monocyt 07--2 2.5 % 1.7-9.3 complet es Fr 013 ed Bld 06:35 Auto Eosinop 07-26-2 0.3 % 0.1-12. complet hil Fr 013 0 ed Bld 06:35 Auto Basophi 07-26-2 0.1 % 0.1-2.0 complet ls Fr 013 ed Bld 06:35 Auto Granulo 07-26-2 11.4 1.3-8.0 complet cytes # 013 K/mm3 ed Bld 06:35 Auto Lymphoc -26-2 0.9 0.7-4.5 complet ytes Fr 013 K/mm3 ed Bld 06:35 Auto Monocyt 07-26-2 0.3 0.1-1.0 complet es # 013 K/mm3 ed Bld 06:35 Auto Eosinop 07-26-2 0.0 0.0-0.4 complet hil # 013 K/mm3 ed Bld 06:35 Auto Basophi 07-26-2 0.0 0-0.2 complet ls # 013 K/MM3 ed Bld 06:35 Auto GLYCOHEMOGLOBIN (A1c) (10-03-2012 06:35) HEMOGLO -26-2 8.0 % 0.0-7.0 complet BIN A1C 013 ed 06:35 PROTIME/INR (10-02-2012 04:30) PROTHRO -25-2 17.2 9.9-11. complet MBIN 013 SECONDS 6 ed TIME 04:30 INR Bld 07-25-2 1.60 0.9-1.1 complet 013 UNK ed 04:30 CBC with AUTO DIFF (10-02-2012 04:30) WBC # 07-25-2 13.5 4.8-10. complet Bld 013 K/MM3 8 ed Auto 04:30 RBC # 07-25-2 3.92 4.6-6.2 complet Bld 013 M/mm3 ed Auto 04:30 Hgb 07-25-2 10.4 14.1-18 complet Bld-mCn 013 g/dL .0 ed c 04:30 Hct Fr 25-2 33.8 % 42.0-52 complet Bld 013 .0 ed 04:30 MCV RBC 25-2 86.3 fl 82.2-97 complet 013 .8 ed 04:30 MCH RBC 25-2 26.6 pg 27-31.2 complet Qn 013 ed Auto 04:30 MEAN -25-2 30.8 31.8-35 complet CORPUSC 013 g/dl .4 ed ULAR 04:30 HGB CONC RDW RBC 25-2 15.0 % 11.5-17 complet Auto 013 .5 ed 04:30 Platele -25-2 387 142-424 complet t Bld 013 K/mm3 ed Ql 04:30 Manual MEAN 25-2 6.8 fl 7.4-10. complet PLATELE 013 4 ed T 04:30 VOLUME Granulo -25-2 88.1 % 37.0-80 complet cytes 013 .0 ed Fr Bld 04:30 Auto LYMPH % 07-25-2 7.7 % 10-50 complet 013 ed 04:30 Monocyt 07-25-2 3.7 % 1.7-9.3 complet es Fr 013 ed Bld 04:30 Auto Eosinop 07-25-2 0.5 % 0.1-12. complet hil Fr 013 0 ed Bld 04:30 Auto Basophi 07-25-2 0.1 % 0.1-2.0 complet ls Fr 013 ed Bld 04:30 Auto Granulo 07-25-2 11.9 1.3-8.0 complet cytes # 013 K/mm3 ed Bld 04:30 Auto Lymphoc 07-25-2 1.0 0.7-4.5 complet ytes Fr 013 K/mm3 ed Bld 04:30 Auto Monocyt 07-25-2 0.5 0.1-1.0 complet es # 013 K/mm3 ed Bld 04:30 Auto Eosinop 10-02-2 0.1 0.0-0.4 complet hil # 013 K/mm3 ed Bld 04:30 Auto Basophi 10-02-2 0.0 0-0.2 complet ls # 013 K/MM3 ed Bld 04:30 Auto ARTERIAL BLOOD GAS (10-01-2012 08:59) ARTERIA 10-01-2 7.42 7.35-7. complet L PH 013 MMOL/L 45 ed 08:59 ARTERIA 10-01-2 43.6 35.0-45 complet L PCO2 013 MMHG .0 ed 08:59 ARTERIA 10-01-2 59.6 80-100 complet L PO2 013 MMHG ed 08:59 ARTERIA 10-01-2 27.9 22.0-26 complet L HCO3 013 MMOL/L .0 ed 08:59 ARTERIA 10-01-2 29.2 23-27 complet L TCO2 013 MMOL/L ed 08:59 Base 10-01-2 3.5 -2.4-+2 complet excess 013 MMOL/L .3 ed BldA-sC 08:59 nc ARTERIA 10-01-2 91.7 % 90-100 complet L O2 013 ed SAT 08:59 OXYGEN 2 4LPM complet 013 ed 08:59 Arteria 10-01-2 ACCEPTA complet l 013 BLE ed patency 08:59 Wrist a SOURCE 10-01-2 L complet 013 RADIAL ed 08:59 COMPREHENSIVE METABOLIC PANEL (10-01-2012 08:25) Glucose 10-01- 151 74-106 complet 013 mg/dL ed Bld-mCn 08:25 c BUN 10-01-2 16 7-18 complet Bld-mCn 013 mg/dL ed c 08:25 Creat 2 1.1 0.8-1.3 complet SerPl-m 013 mg/dL ed Cnc 08:25 ESTIMAT 10-01-2 130 50-200 complet ED 013 ML/MIN ed CREATIN 08:25 INE CLEARAN CE GFR 2 69 Greater complet (ESTIMA 013 ML/MIN than ed KASSI) 08:25 60 Sodium 132 136-145 complet SerPl-s 013 mmoL/L ed Cnc 08:25 Potassi 2 4.3 3.5-5.1 complet um 013 mmoL/L ed SerPl-s 08:25 Cnc Chlorid 94 98-107 complet e 013 mmoL/L ed SerPl-s 08:25 Cnc CO2 28 21.0-32 complet SerPl-s 013 mmoL/L .0 ed Cnc 08:25 Calcium 2 8.2 8.5-10. complet 013 mg/dL 1 ed SerPl-m 08:25 Cnc Prot 2 7.4 6.4-8.2 complet SerPl-m 013 gm/dL ed Cnc 08:25 Albumin 2.3 3.4-5.0 complet 013 gm/dL ed SerPl-m 08:25 Cnc Globuli 5.1 1.3-3.2 complet n 013 gm/dL ed Ser-mCn 08:25 c Albumin 2 0.5 UNK 1.1-1.8 complet /Glob 013 ed SerPl-m 08:25 Rto Bilirub 2 0.3 0.2-1.0 complet 013 mg/dL ed SerPl-m 08:25 Cnc AST 17 U/L 15-37 complet SerPl-c 013 ed Cnc 08:25 ALT 47 U/L 30-65 complet SerPl-c 013 ed Cnc 08:25 ALP 2 161 U/L 50-136 complet SerPl-c 013 ed Cnc 08:25 D Dimer PPP (10-01-2012 08:25) D Dimer 10-01- 1480 0-400 High complet PPP 013 ng/mL alert ed 08:25 CBC with AUTO DIFF (10-01-2012 08:25) WBC # 24-2 15.7 4.8-10. complet Bld 013 K/MM3 8 ed Auto 08:25 RBC # 24-2 4.14 4.6-6.2 complet Bld 013 M/mm3 ed Auto 08:25 Hgb 10-01-2 11.1 14.1-18 complet Bld-mCn 013 g/dL .0 ed c 08:25 Hct Fr 10-01-2 34.9 % 42.0-52 complet Bld 013 .0 ed 08:25 MCV RBC 10-01-2 84.5 fl 82.2-97 complet 013 .8 ed 08:25 MCH RBC 10-01-2 26.9 pg 27-31.2 complet Qn 013 ed Auto 08:25 MEAN 10-01-2 31.9 31.8-35 complet CORPUSC 013 g/dl .4 ed ULAR 08:25 HGB CONC RDW RBC 10-01-2 15.4 % 11.5-17 complet Auto 013 .5 ed 08:25 Platele 10-01-2 442 142-424 complet t Bld 013 K/mm3 ed Ql 08:25 Manual MEAN 2 6.8 fl 7.4-10. complet PLATELE 013 4 ed T 08:25 VOLUME Granulo 10-01-2 82.4 % 37.0-80 complet cytes 013 .0 ed Fr Bld 08:25 Auto LYMPH % 24-2 11.3 % 10-50 complet 013 ed 08:25 Monocyt 24-2 4.9 % 1.7-9.3 complet es Fr 013 ed Bld 08:25 Auto Eosinop -24-2 1.1 % 0.1-12. complet hil Fr 013 0 ed Bld 08:25 Auto Basophi 24-2 0.4 % 0.1-2.0 complet ls Fr 013 ed Bld 08:25 Auto Granulo -24-2 13.0 1.3-8.0 complet cytes # 013 K/mm3 ed Bld 08:25 Auto Lymphoc -24-2 1.8 0.7-4.5 complet ytes Fr 013 K/mm3 ed Bld 08:25 Auto Monocyt 07-24-2 0.8 0.1-1.0 complet es # 013 K/mm3 ed Bld 08:25 Auto Eosinop 07-24-2 0.2 0.0-0.4 complet hil # 013 K/mm3 ed Bld 08:25 Auto Basophi -24-2 0.1 0-0.2 complet ls # 013 K/MM3 ed Bld 08:25 Auto MYCOPLASMA IGM (RAPID) (10-01-2012 08:24) MYCOPLA 10-01-2 NON-LYDNSAY NONREAC complet SMA IGM 013 CTIVE TIVE ed 08:24 (RAPID) PROTIME/INR (08-24-2012 07:30) PROTHRO 08-24- 24.1 9.9-11. complet MBIN 013 SECONDS 6 ed TIME 07:30 INR Bld 2.23 0.9-1.1 complet 013 UNK ed 07:30 ACT PARTIAL THROMBO TIME (08-24-2012 07:30) ACT 73.7 25.3-32 High complet PARTIAL 013 SECONDS .0 alert ed 07:30 THROMBO TIME ACT PARTIAL THROMBO TIME (08-23-2012 16:00) ACT 66.7 25.3-32 High complet PARTIAL 013 SECONDS .0 alert ed 16:00 THROMBO TIME PROTIME/INR (08-23-2012 09:00) PROTHRO 19.4 9.9-11. complet MBIN 013 SECONDS 6 ed TIME 09:00 INR Bld 1.80 0.9-1.1 complet 013 UNK ed 09:00 ACT PARTIAL THROMBO TIME (08-23-2012 09:00) ACT 70.4 25.3-32 High complet PARTIAL 013 SECONDS .0 alert ed 09:00 THROMBO TIME PROTIME/INR (08-22-2012 09:00) PROTHRO 15.6 9.9-11. complet MBIN 013 SECONDS 6 ed TIME 09:00 INR Bld 1.45 0.9-1.1 complet 013 UNK ed 09:00 ACT PARTIAL THROMBO TIME (08-22-2012 09:00) ACT 66.7 25.3-32 High complet PARTIAL 013 SECONDS .0 alert ed 09:00 THROMBO TIME ACT PARTIAL THROMBO TIME (08-21-2012 07:15) ACT 62.3 25.3-32 High complet PARTIAL 013 SECONDS .0 alert ed 07:15 THROMBO TIME PROTIME/INR (08-21-2012 07:15) PROTHRO 12.6 9.9-11. complet MBIN 013 SECONDS 6 ed TIME 07:15 INR Bld 1.18 0.9-1.1 complet 013 UNK ed 07:15 ACT PARTIAL THROMBO TIME (08-21-2012 01:15) ACT 61.7 25.3-32 High complet PARTIAL 013 SECONDS .0 alert ed 01:15 THROMBO TIME ACT PARTIAL THROMBO TIME (08-20-2012 18:15) ACT 51.8 25.3-32 High complet PARTIAL 013 SECONDS .0 alert ed 18:15 THROMBO TIME ACT PARTIAL THROMBO TIME (08-20-2012 12:29) ACT 57.2 25.3-32 High complet PARTIAL 013 SECONDS .0 alert ed 12:29 THROMBO TIME ACT PARTIAL THROMBO TIME (08-20-2012 06:15) ACT 77.2 25.3-32 High complet PARTIAL 013 SECONDS .0 alert ed 06:15 THROMBO TIME ACT PARTIAL THROMBO TIME (08-20-2012 00:30) ACT 81.6 25.3-32 High complet PARTIAL 013 SECONDS .0 alert ed 00:30 THROMBO TIME BASIC METABOLIC PANEL (08-19-2012 17:50) Glucose 109 74-106 complet 013 mg/dL ed Bld-mCn 17:50 c BUN 15 7-18 complet Bld-mCn 013 mg/dL ed c 17:50 Creat 1.0 0.8-1.3 complet SerPl-m 013 mg/dL ed Cnc 17:50 ESTIMAT 137 50-200 complet ED 013 ML/MIN ed CREATIN 17:50 INE CLEARAN CE GFR 77 Greater complet (ESTIMA 013 ML/MIN than ed KASSI) 17:50 60 Sodium 139 136-145 complet SerPl-s 013 mmoL/L ed Cnc 17:50 Potassi 3.9 3.5-5.1 complet um 013 mmoL/L ed SerPl-s 17:50 Cnc Chlorid 99 98-107 complet e 013 mmoL/L ed SerPl-s 17:50 Cnc CO2 36 21.0-32 complet SerPl-s 013 mmoL/L .0 ed Cnc 17:50 Calcium 8.6 8.5-10. complet 013 mg/dL 1 ed SerPl-m 17:50 Cnc CBC with AUTO DIFF (08-19-2012 17:50) WBC # 06-11-2 10.3 4.8-10. complet Bld 013 K/MM3 8 ed Auto 17:50 RBC # 06-11-2 4.93 4.6-6.2 complet Bld 013 M/mm3 ed Auto 17:50 Hgb 06-11-2 13.4 14.1-18 complet Bld-mCn 013 g/dL .0 ed c 17:50 Hct Fr -11-2 42.2 % 42.0-52 complet Bld 013 .0 ed 17:50 MCV RBC 06-11-2 85.6 fl 82.2-97 complet 013 .8 ed 17:50 MCH RBC -11-2 27.3 pg 27-31.2 complet Qn 013 ed Auto 17:50 MEAN 06-11-2 31.9 31.8-35 complet CORPUSC 013 g/dl .4 ed ULAR 17:50 HGB CONC RDW RBC -11-2 16.0 % 11.5-17 complet Auto 013 .5 ed 17:50 Platele -11-2 357 142-424 complet t Bld 013 K/mm3 ed Ql 17:50 Manual MEAN 11-2 6.6 fl 7.4-10. complet PLATELE 013 4 ed T 17:50 VOLUME Granulo -11-2 68.5 % 37.0-80 complet cytes 013 .0 ed Fr Bld 17:50 Auto LYMPH % -11-2 22.1 % 10-50 complet 013 ed 17:50 Monocyt 06-11-2 4.7 % 1.7-9.3 complet es Fr 013 ed Bld 17:50 Auto Eosinop 06-11-2 4.3 % 0.1-12. complet hil Fr 013 0 ed Bld 17:50 Auto Basophi 06-11-2 0.5 % 0.1-2.0 complet ls Fr 013 ed Bld 17:50 Auto Granulo 06-11-2 7.1 1.3-8.0 complet cytes # 013 K/mm3 ed Bld 17:50 Auto Lymphoc 06-11-2 2.3 0.7-4.5 complet ytes Fr 013 K/mm3 ed Bld 17:50 Auto Monocyt -11-2 0.5 0.1-1.0 complet es # 013 K/mm3 ed Bld 17:50 Auto Eosinop 08-19-2 0.4 0.0-0.4 complet hil # 013 K/mm3 ed Bld 17:50 Auto Basophi 08-19- 0.1 0-0.2 complet ls # 013 K/MM3 ed Bld 17:50 Auto BASIC METABOLIC PANEL (06-19-2012 06:40) Glucose 06-19- 163 74-106 complet 013 mg/dL ed Bld-mCn 06:40 c BUN 06-19-2 15 7-18 complet Bld-mCn 013 mg/dL ed c 06:40 Creat 06-19-2 1.0 0.8-1.3 complet SerPl-m 013 mg/dL ed Cnc 06:40 ESTIMAT 06-19- 131 50-200 complet ED 013 ML/MIN ed CREATIN 06:40 INE CLEARAN CE GFR 77 Greater complet (ESTIMA 013 ML/MIN than ed KASSI) 06:40 60 Sodium 06-19-2 141 136-145 complet SerPl-s 013 mmoL/L ed Cnc 06:40 Potassi 2 4.2 3.5-5.1 complet um 013 mmoL/L ed SerPl-s 06:40 Cnc Chlorid 101 98-107 complet e 013 mmoL/L ed SerPl-s 06:40 Cnc CO2 06-19- 36 21.0-32 complet SerPl-s 013 mmoL/L .0 ed Cnc 06:40 Calcium 06-19-2 8.3 8.5-10. complet 013 mg/dL 1 ed SerPl-m 06:40 Cnc CBC with AUTO DIFF (06-19-2012 06:40) WBC # -11-2 11.2 4.8-10. complet Bld 013 K/MM3 8 ed Auto 06:40 RBC # -11-2 5.22 4.6-6.2 complet Bld 013 M/mm3 ed Auto 06:40 Hgb 06-19-2 14.3 14.1-18 complet Bld-mCn 013 g/dL .0 ed c 06:40 Hct Fr 06-19-2 45.7 % 42.0-52 complet Bld 013 .0 ed 06:40 MCV RBC 11-2 87.5 fl 82.2-97 complet 013 .8 ed 06:40 MCH RBC 06-19-2 27.3 pg 27-31.2 complet Qn 013 ed Auto 06:40 MEAN 06-19-2 31.2 31.8-35 complet CORPUSC 013 g/dl .4 ed ULAR 06:40 HGB CONC RDW RBC 06-19-2 14.7 % 11.5-17 complet Auto 013 .5 ed 06:40 Platele -11-2 388 142-424 complet t Bld 013 K/mm3 ed Ql 06:40 Manual MEAN 2 6.6 fl 7.4-10. complet PLATELE 013 4 ed T 06:40 VOLUME Granulo 06-19-2 80.2 % 37.0-80 complet cytes 013 .0 ed Fr Bld 06:40 Auto LYMPH % 11-2 14.3 % 10-50 complet 013 ed 06:40 Monocyt 11-2 4.8 % 1.7-9.3 complet es Fr 013 ed Bld 06:40 Auto Eosinop -11-2 0.5 % 0.1-12. complet hil Fr 013 0 ed Bld 06:40 Auto Basophi -11-2 0.3 % 0.1-2.0 complet ls Fr 013 ed Bld 06:40 Auto Granulo 04-11-2 9.0 1.3-8.0 complet cytes # 013 K/mm3 ed Bld 06:40 Auto Lymphoc -11-2 1.6 0.7-4.5 complet ytes Fr 013 K/mm3 ed Bld 06:40 Auto Monocyt 04-11-2 0.5 0.1-1.0 complet es # 013 K/mm3 ed Bld 06:40 Auto Eosinop 04-11-2 0.1 0.0-0.4 complet hil # 013 K/mm3 ed Bld 06:40 Auto Basophi 04-11-2 0.0 0-0.2 complet ls # 013 K/MM3 ed Bld 06:40 Auto BASIC METABOLIC PANEL (06-16-2012 06:11) Glucose 06-16-2 127 74-106 complet 013 mg/dL ed Bld-mCn 06:11 c BUN 16 7-18 complet Bld-mCn 013 mg/dL ed c 06:11 Creat 06-16-2 0.9 0.8-1.3 complet SerPl-m 013 mg/dL ed Cnc 06:11 ESTIMAT 06-16-2 146 50-200 complet ED 013 ML/MIN ed CREATIN 06:11 INE CLEARAN CE GFR 87 Greater complet (ESTIMA 013 ML/MIN than ed KASSI) 06:11 60 Sodium 06-16-2 141 136-145 complet SerPl-s 013 mmoL/L ed Cnc 06:11 Potassi 4.7 3.5-5.1 complet um 013 mmoL/L ed SerPl-s 06:11 Cnc Chlorid 101 98-107 complet e 013 mmoL/L ed SerPl-s 06:11 Cnc CO2 37 21.0-32 complet SerPl-s 013 mmoL/L .0 ed Cnc 06:11 Calcium 8.5 8.5-10. complet 013 mg/dL 1 ed SerPl-m 06:11 [facility] COMPREHENSIVE METABOLIC PANEL (06-13-2012 06:15) Glucose 05-2 134 74-106 complet 013 mg/dL ed Bld-mCn 06:15 c BUN 18 7-18 complet Bld-mCn 013 mg/dL ed c 06:15 Creat 2 0.9 0.8-1.3 complet SerPl-m 013 mg/dL ed Cnc 06:15 ESTIMAT 162 50-200 complet ED 013 ML/MIN ed CREATIN 06:15 INE CLEARAN CE GFR 87 Greater complet (ESTIMA 013 ML/MIN than ed KASSI) 06:15 60 Sodium 05-2 141 136-145 complet SerPl-s 013 mmoL/L ed Cnc 06:15 Potassi 5.1 3.5-5.1 complet um 013 mmoL/L ed SerPl-s 06:15 Cnc Chlorid 102 98-107 complet e 013 mmoL/L ed SerPl-s 06:15 Cnc CO2 37 21.0-32 complet SerPl-s 013 mmoL/L .0 ed Cnc 06:15 Calcium 04-05-2 8.7 8.5-10. complet 013 mg/dL 1 ed SerPl-m 06:15 Cnc Prot 04-05-2 7.5 6.4-8.2 complet SerPl-m 013 gm/dL ed Cnc 06:15 Albumin 04-05-2 3.1 3.4-5.0 complet 013 gm/dL ed SerPl-m 06:15 Cnc Globuli 04-05-2 4.4 1.3-3.2 complet n 013 gm/dL ed Ser-mCn 06:15 c Albumin -05-2 0.7 UNK 1.1-1.8 complet /Glob 013 ed SerPl-m 06:15 Rto Bilirub -05-2 0.3 0.2-1.0 complet 013 mg/dL ed SerPl-m 06:15 Cnc AST -05-2 33 U/L 15-37 complet SerPl-c 013 ed Cnc 06:15 ALT 04-05-2 50 U/L 30-65 complet SerPl-c 013 ed Cnc 06:15 ALP 04-05-2 114 U/L 50-136 complet SerPl-c 013 ed Cnc 06:15 CBC with AUTO DIFF (06-13-2012 06:15) WBC # 04-05-2 9.9 4.8-10. complet Bld 013 K/MM3 8 ed Auto 06:15 RBC # 04-05-2 4.77 4.6-6.2 complet Bld 013 M/mm3 ed Auto 06:15 Hgb -05-2 13.2 14.1-18 complet Bld-mCn 013 g/dL .0 ed c 06:15 Hct Fr 04-05-2 41.9 % 42.0-52 complet Bld 013 .0 ed 06:15 MCV RBC 04-05-2 87.9 fl 82.2-97 complet 013 .8 ed 06:15 MCH RBC -05-2 27.6 pg 27-31.2 complet Qn 013 ed Auto 06:15 MEAN -05-2 31.4 31.8-35 complet CORPUSC 013 g/dl .4 ed ULAR 06:15 HGB CONC RDW RBC -05-2 15.0 % 11.5-17 complet Auto 013 .5 ed 06:15 Platele 04-05-2 296 142-424 complet t Bld 013 K/mm3 ed Ql 06:15 Manual MEAN -05-2 6.8 fl 7.4-10. complet PLATELE 013 4 ed T 06:15 VOLUME Granulo -05-2 82.6 % 37.0-80 complet cytes 013 .0 ed Fr Bld 06:15 Auto LYMPH % 04-05-2 12.1 % 10-50 complet 013 ed 06:15 Monocyt 04-05-2 4.8 % 1.7-9.3 complet es Fr 013 ed Bld 06:15 Auto Eosinop 04-05-2 0.3 % 0.1-12. complet hil Fr 013 0 ed Bld 06:15 Auto Basophi 04-05-2 0.2 % 0.1-2.0 complet ls Fr 013 ed Bld 06:15 Auto Granulo 04-05-2 8.2 1.3-8.0 complet cytes # 013 K/mm3 ed Bld 06:15 Auto Lymphoc -05-2 1.2 0.7-4.5 complet ytes Fr 013 K/mm3 ed Bld 06:15 Auto Monocyt 04-05-2 0.5 0.1-1.0 complet es # 013 K/mm3 ed Bld 06:15 Auto Eosinop 04-05-2 0.0 0.0-0.4 complet hil # 013 K/mm3 ed Bld 06:15 Auto Basophi 04-05-2 0.0 0-0.2 complet ls # 013 K/MM3 ed Bld 06:15 Auto BASIC METABOLIC PANEL (06-12-2012 06:17) Glucose 161 74-106 complet 013 mg/dL ed Bld-mCn 06:17 c BUN 20 7-18 complet Bld-mCn 013 mg/dL ed c 06:17 Creat 06-12-2 0.9 0.8-1.3 complet SerPl-m 013 mg/dL ed Cnc 06:17 ESTIMAT 06-12-2 162 50-200 complet ED 013 ML/MIN ed CREATIN 06:17 INE CLEARAN CE GFR 87 Greater complet (ESTIMA 013 ML/MIN than ed KASSI) 06:17 60 Sodium 06-12-2 137 136-145 complet SerPl-s 013 mmoL/L ed Cnc 06:17 Potassi 4.9 3.5-5.1 complet um 013 mmoL/L ed SerPl-s 06:17 Cnc Chlorid 103 98-107 complet e 013 mmoL/L ed SerPl-s 06:17 Cnc CO2 28 21.0-32 complet SerPl-s 013 mmoL/L .0 ed Cnc 06:17 Calcium 8.4 8.5-10. complet 013 mg/dL 1 ed SerPl-m 06:17 Cnc D Dimer PPP (06-11-2012 06:05) D Dimer 222 0-400 complet PPP 013 ng/mL ed 06:05 CBC with AUTO DIFF (06-11-2012 06:05) WBC # 03-2 6.5 4.8-10. complet Bld 013 K/MM3 8 ed Auto 06:05 WBC 06-11-2 6.4 complet nRBC 013 K/mm3 ed cor # 06:05 Bld Auto RBC # 06-11-2 4.94 4.6-6.2 complet Bld 013 M/mm3 ed Auto 06:05 Hgb 06-11-2 13.3 14.1-18 complet Bld-mCn 013 g/dL .0 ed c 06:05 Hct Fr 42.4 % 42.0-52 complet Bld 013 .0 ed 06:05 MCV RBC 06-11- 85.9 fl 82.2-97 complet 013 .8 ed 06:05 MCH RBC 06-11-2 27.0 pg 27-31.2 complet Qn 013 ed Auto 06:05 MEAN 06-11-2 31.4 31.8-35 complet CORPUSC 013 g/dl .4 ed ULAR 06:05 HGB CONC RDW RBC 06-11-2 15.2 % 11.5-17 complet Auto 013 .5 ed 06:05 Platele 06-11- 223 142-424 complet t Bld 013 K/mm3 ed Ql 06:05 Manual MEAN 6.8 fl 7.4-10. complet PLATELE 013 4 ed T 06:05 VOLUME Granulo 85.9 % 37.0-80 complet cytes 013 .0 ed Fr Bld 06:05 Auto LYMPH % 04-03-2 10.9 % 10-50 complet 013 ed 06:05 Monocyt 04-03-2 2.7 % 1.7-9.3 complet es Fr 013 ed Bld 06:05 Auto Eosinop 04-03-2 0.4 % 0.1-12. complet hil Fr 013 0 ed Bld 06:05 Auto Basophi 04-03-2 0.1 % 0.1-2.0 complet ls Fr 013 ed Bld 06:05 Auto Granulo 04-03-2 5.6 1.3-8.0 complet cytes # 013 K/mm3 ed Bld 06:05 Auto Lymphoc 04-03-2 0.7 0.7-4.5 complet ytes Fr 013 K/mm3 ed Bld 06:05 Auto Monocyt 04-03-2 0.2 0.1-1.0 complet es # 013 K/mm3 ed Bld 06:05 Auto Eosinop 04-03-2 0.0 0.0-0.4 complet hil # 013 K/mm3 ed Bld 06:05 Auto Basophi 04-03-2 0.0 0-0.2 complet ls # 013 K/MM3 ed Bld 06:05 Auto ARTERIAL BLOOD GAS (06-10-2012 19:54) ARTERIA 02-2 7.42 7.35-7. complet L PH 013 MMOL/L 45 ed 19:54 ARTERIA 02-2 42.2 35.0-45 complet L PCO2 013 MMHG .0 ed 19:54 ARTERIA 02-2 60.8 80-100 complet L PO2 013 MMHG ed 19:54 ARTERIA 02-2 26.6 22.0-26 complet L HCO3 013 MMOL/L .0 ed 19:54 ARTERIA 02-2 27.9 23-27 complet L TCO2 013 MMOL/L ed 19:54 Base -02-2 2.0 -2.4-+2 complet excess 013 MMOL/L .3 ed BldA-sC 19:54 nc ARTERIA 06-10-2 92.4 % 90-100 complet L O2 013 ed SAT 19:54 OXYGEN 06-10-2 36%, complet 013 4LPM ed 19:54 VIA N/C Arteria 2 ACCEPTA complet l 013 BLE ed patency 19:54 Wrist a COMPREHENSIVE METABOLIC PANEL (06-10-2012 19:32) Glucose 02 105 74-106 complet 013 mg/dL ed Bld-mCn 19:32 c BUN 02-2 23 7-18 complet Bld-mCn 013 mg/dL ed c 19:32 Creat 06-10-2 1.4 0.8-1.3 complet SerPl-m 013 mg/dL ed Cnc 19:32 ESTIMAT 06-10-2 104 50-200 complet ED 013 ML/MIN ed CREATIN 19:32 INE CLEARAN CE GFR 02-2 52 Greater complet (ESTIMA 013 ML/MIN than ed KASSI) 19:32 60 Sodium 02-2 133 136-145 complet SerPl-s 013 mmoL/L ed Cnc 19:32 Potassi 3.4 3.5-5.1 complet um 013 mmoL/L ed SerPl-s 19:32 Cnc Chlorid 95 98-107 complet e 013 mmoL/L ed SerPl-s 19:32 Cnc CO2 06-10-2 27 21.0-32 complet SerPl-s 013 mmoL/L .0 ed Cnc 19:32 Calcium -02-2 8.3 8.5-10. complet 013 mg/dL 1 ed SerPl-m 19:32 Cnc Prot 06-10-2 7.4 6.4-8.2 complet SerPl-m 013 gm/dL ed Cnc 19:32 Albumin 06-10-2 3.2 3.4-5.0 complet 013 gm/dL ed SerPl-m 19:32 Cnc Globuli 2 4.2 1.3-3.2 complet n 013 gm/dL ed Ser-mCn 19:32 c Albumin 02-2 0.8 UNK 1.1-1.8 complet /Glob 013 ed SerPl-m 19:32 Rto Bilirub 06-10-2 0.5 0.2-1.0 complet 013 mg/dL ed SerPl-m 19:32 Cnc AST 06-10-2 25 U/L 15-37 complet SerPl-c 013 ed Cnc 19:32 ALT 06-10-2 39 U/L 30-65 complet SerPl-c 013 ed Cnc 19:32 ALP 04-02-2 160 U/L 50-136 complet SerPl-c 013 ed Cnc 19:32 CBC with AUTO DIFF (06-10-2012 19:32) WBC # 04-02-2 10.5 4.8-10. complet Bld 013 K/MM3 8 ed Auto 19:32 RBC # 04-02-2 5.04 4.6-6.2 complet Bld 013 M/mm3 ed Auto 19:32 Hgb 04-02-2 13.7 14.1-18 complet Bld-mCn 013 g/dL .0 ed c 19:32 Hct Fr 04-02-2 42.7 % 42.0-52 complet Bld 013 .0 ed 19:32 MCV RBC 04-02-2 84.6 fl 82.2-97 complet 013 .8 ed 19:32 MCH RBC 04-02-2 27.3 pg 27-31.2 complet Qn 013 ed Auto 19:32 MEAN 04-02-2 32.2 31.8-35 complet CORPUSC 013 g/dl .4 ed ULAR 19:32 HGB CONC RDW RBC -02-2 15.3 % 11.5-17 complet Auto 013 .5 ed 19:32 Platele 04-02-2 272 142-424 complet t Bld 013 K/mm3 ed Ql 19:32 Manual MEAN 02-2 6.8 fl 7.4-10. complet PLATELE 013 4 ed T 19:32 VOLUME Granulo -02-2 80.2 % 37.0-80 complet cytes 013 .0 ed Fr Bld 19:32 Auto LYMPH % 04-02-2 14.2 % 10-50 complet 013 ed 19:32 Monocyt 04-02-2 3.7 % 1.7-9.3 complet es Fr 013 ed Bld 19:32 Auto Eosinop 04-02-2 1.5 % 0.1-12. complet hil Fr 013 0 ed Bld 19:32 Auto Basophi 04-02-2 0.4 % 0.1-2.0 complet ls Fr 013 ed Bld 19:32 Auto Granulo 04-02-2 8.5 1.3-8.0 complet cytes # 013 K/mm3 ed Bld 19:32 Auto Lymphoc 04-02-2 1.5 0.7-4.5 complet ytes Fr 013 K/mm3 ed Bld 19:32 Auto Monocyt 04-02-2 0.4 0.1-1.0 complet es # 013 K/mm3 ed Bld 19:32 Auto Eosinop 04-02-2 0.2 0.0-0.4 complet hil # 013 K/mm3 ed Bld 19:32 Auto Basophi 04-02-2 0.0 0-0.2 complet ls # 013 K/MM3 ed Bld 19:32 Auto MYCOPLASMA IGM (RAPID) (06-10-2012 19:32) MYCOPLA 04-02-2 NON-LYNDSAY NONREAC complet SMA IGM 013 CTIVE TIVE ed 19:32 (RAPID) Procedures Procedure DOS Code Location Performer Comment O2 CONC 1 E1390 DOREEN LOGAN [place] 7 HOME HOME 85%/>02 MEDICAL MEDICAL CONC AT EQUIPME EQUIPME [facility] FLW RATE PRTBLE E0431 DOREEN LOGAN GASEOUS 7 HOME HOME O2 SYS MEDICAL MEDICAL RENT; EQUIPME EQUIPME FLWMTR HUMIDFR&M ASK PHRM Q0513 YOUR YOUR DISPENSIN 7 PHARMACY PHARMACY G FEE [employer] INHALATIO N RX; PER 30 DAYS ADMN SET A7003 YOUR YOUR SM VOL 7 PHARMACY PHARMACY NONFILTR [employer] PNEUMAT NEBULIZR DISPBL ALBUTEROL J7620 YOUR YOUR TO 2.5 7 PHARMACY PHARMACY MG & [employer] IPRATROPI UM BROM TO 0.5 MG O2 CONC 1 E1390 DOREEN LOGAN [place] 7 HOME HOME 85%/>02 MEDICAL MEDICAL CONC AT EQUIPME EQUIPME PRS FLW RATE PRTBLE E0431 DOREEN LOGAN GASEOUS 7 HOME HOME O2 SYS MEDICAL MEDICAL RENT; EQUIPME EQUIPME FLWMTR HUMIDFR&M ASK PRTBLE E0431 DOREEN LOGAN GASEOUS 6 HOME HOME O2 SYS MEDICAL MEDICAL RENT; EQUIPME EQUIPME FLWMTR HUMIDFR&M ASK O2 CONC 1 E1390 DOREEN LOGAN [place] 6 HOME HOME 85%/>02 MEDICAL MEDICAL CONC [facility] [place] FLW RATE HOS BED E0260 DOREEN LOGAN SEMI-ELEC 6 HOME HOME W/ANY MEDICAL MEDICAL TYPE SIDE EQUIPME EQUIPME RAIL W/MATTRSS ADMN SET A7003 YOUR YOUR SM VOL 6 PHARMACY PHARMACY NONFILTR [employer] PNEUMAT NEBULIZR DISPBL ALBUTEROL J7620 YOUR YOUR TO 2.5 6 PHARMACY PHARMACY [employer] [facility] IPRATROPI UM BROM TO 0.5 MG PHRM Q0513 YOUR YOUR DISPENSIN 6 PHARMACY PHARMACY G FEE [employer] INHALATIO N RX; PER 30 DAYS BLD GLU A4253 CLINIC CLINIC TEST/REAG 6 PHARMACY PHARMACY T STRIPS HOME BLD GLU MON-50 PRTBLE E0431 DOREEN DOREEN GASEOUS 6 HOME HOME O2 SYS MEDICAL MEDICAL RENT; EQUIPME EQUIPME FLWMTR HUMIDFR&M ASK O2 CONC 1 E1390 DOREENMARNIE DUMONTRELL [place] 6 HOME HOME 85%/>02 MEDICAL MEDICAL CONC AT EQUIPME EQUIPME PRSC FLW RATE HOS BED E0260 DOREEN DOREEN SEMI-ELEC 6 HOME HOME W/ANY MEDICAL MEDICAL TYPE SIDE EQUIPME EQUIPME RAIL W/MATTRSS O2 CONC 1 E1390 DOREEN DOREEN [place] 6 HOME HOME 85%/>02 MEDICAL MEDICAL CONC AT EQUIPME EQUIPME PRSC FLW RATE PRTBLE E0431 DOREEN DOREEN GASEOUS 6 HOME HOME O2 SYS MEDICAL MEDICAL RENT; EQUIPME EQUIPME FLWMTR HUMIDFR&M ASK HOS BED E0260 DOREEN DOREEN SEMI-ELEC 6 HOME HOME W/ANY MEDICAL MEDICAL TYPE SIDE EQUIPME EQUIPME RAIL W/MATTRSS HOS BED E0260 DOREEN DOREEN SEMI-ELEC 6 HOME HOME W/ANY MEDICAL MEDICAL TYPE SIDE EQUIPME EQUIPME RAIL W/MATTRSS ALBUTEROL J7620 YOUR YOUR TO 2.5 6 PHARMACY PHARMACY MG & [employer] IPRATROPI UM BROM TO 0.5 MG ADMN SET A7003 YOUR YOUR SM VOL 6 PHARMACY PHARMACY [employer] PNEUMAT NEBULIZR DISPBL PHRM Q0513 YOUR YOUR DISPENSIN 6 PHARMACY PHARMACY G [employer] INHALATIO N RX; PER 30 DAYS PORTABLE E0443 DOREEN DOREEN O2 6 HOME HOME CONTENTS MEDICAL MEDICAL GASEOUS 1 EQUIPME EQUIPME MO SUPPLY=1 UNIT COLLECTIO [id number] [facility] MEZA N VENOUS 6 [facility] BLOOD INC INC VENIPUNCT URE COMPREHEN 73829 [facility]ZA SIVE 6 [facility] METABOLIC INC INC PANEL HEMOGLOBI 62939 [facility]NA [place] N 6 [facility] GLYCOSYLA INC KASSI A1C BLOOD [id number] SUSANA MEZA COUNT 6 [facility] COMPLETE INC INC AUTO&AUTO DIFRNTL WBC LIPID 57036 SUSANA MEZA PANEL 6 [facility] INC INC HOS BED E0260 DOREEN DOREEN SEMI-ELEC 6 HOME HOME W/ANY MEDICAL MEDICAL TYPE SIDE EQUIPME EQUIPME RAIL W/MATTRSS PORTABLE E0443 DOREEN DOREEN O2 6 HOME HOME CONTENTS MEDICAL MEDICAL GASEOUS 1 EQUIPME EQUIPME MO SUPPLY=1 UNIT HOS BED E0260 DOREEN DOREEN SEMI-ELEC 6 HOME HOME W/ANY MEDICAL MEDICAL TYPE SIDE EQUIPME EQUIPME RAIL W/MATTRSS PORTABLE E0443 DOREEN DOREEN O2 6 HOME HOME CONTENTS MEDICAL MEDICAL GASEOUS 1 EQUIPME EQUIPME MO SUPPLY=1 UNIT HOS BED E0260 DOREEN DOREEN SEMI-ELEC 6 HOME HOME W/ANY MEDICAL MEDICAL TYPE SIDE EQUIPME EQUIPME RAIL W/MATTRSS PORTABLE E0443 DOREEN DOREEN O2 6 HOME HOME CONTENTS MEDICAL MEDICAL GASEOUS 1 EQUIPME EQUIPME MO SUPPLY=1 UNIT BLD GLU A4253 CLINIC CLINIC TEST/REAG 6 PHARMACY PHARMACY T STRIPS HOME BLD GLU MON-50 HOS BED E0260 DOREEN DOREEN SEMI-ELEC 6 HOME HOME W/ANY MEDICAL MEDICAL TYPE SIDE EQUIPME EQUIPME RAIL W/MATTRSS PORTABLE E0443 DOREEN DOREEN O2 6 HOME HOME CONTENTS MEDICAL MEDICAL GASEOUS 1 EQUIPME EQUIPME MO SUPPLY=1 UNIT DIAB ONLY A5500 CLINIC CLINIC FIT CSTM 5 PHARMACY PHARMACY PREP&SPL SHOE MX DNSITY INSRT FOR DIAB A5513 CLINIC CLINIC ONLY MX 5 PHARMACY PHARMACY DNSITY INSRT CSTM MOLD CSTM EA PORTABLE E0443 DOREEN DOREEN O2 5 HOME HOME CONTENTS MEDICAL MEDICAL GASEOUS 1 EQUIPME EQUIPME MO SUPPLY=1 UNIT PORTABLE E0443 DOREEN DOREEN O2 5 HOME HOME CONTENTS MEDICAL MEDICAL GASEOUS 1 EQUIPME EQUIPME MO SUPPLY=1 UNIT PORTABLE E0443 DOREEN DOREEN O2 5 HOME HOME CONTENTS MEDICAL MEDICAL GASEOUS 1 EQUIPME EQUIPME MO SUPPLY=1 UNIT PORTABLE E0443 DOREEN DOREEN O2 5 HOME HOME CONTENTS MEDICAL MEDICAL GASEOUS 1 EQUIPME EQUIPME MO SUPPLY=1 UNIT PORTABLE E0443 DOREEN DOREEN O2 5 HOME HOME CONTENTS MEDICAL MEDICAL GASEOUS 1 EQUIPME EQUIPME MO SUPPLY=1 UNIT PORTABLE E0443 DOREEN DOREEN O2 5 HOME HOME CONTENTS MEDICAL MEDICAL GASEOUS 1 EQUIPME EQUIPME MO SUPPLY=1 UNIT NON-INVAS 01226 S[facility]NA MEZA NÉSTOR 5 [facility] PHYSIOLOG INC INC IC STUDY EXTREMITY 3 LEVLS LIPID 10627 [facility]ZA PANEL 5 [facility] INC INC BLOOD 22889 [facility] ME[facility] COUNT 5 [facility] COMPLETE INC INC AUTO&AUTO DIFRNTL WBC PROSTATE G0103 [facility] MEZA CANCER 5 [facility] SCREENING INC INC ; PSA TEST 25 71491 S[facility]NA MEZA HYDROXY 5 [facility] [place]ES [place] [address] S[facility] MEZA MAGNESIUM 5 [facility] INC INC PORTABLE E0443 DOREEN DOREEN O2 5 HOME HOME CONTENTS MEDICAL MEDICAL GASEOUS 1 EQUIPME EQUIPME MO SUPPLY=1 UNIT COMPREHEN 60007 S[facility]NA MEZA SIVE 5 [facility] METABOLIC INC INC PANEL COLLECTIO 94468 S[facility]NA MEZA N VENOUS 5 [facility] BLOOD INC INC VENIPUNCT URE PORTABLE E0443 DOREEN DOREEN O2 5 HOME HOME CONTENTS MEDICAL MEDICAL GASEOUS 1 EQUIPME EQUIPME MO SUPPLY=1 UNIT PORTABLE E0443 DOREEN DOREEN O2 5 HOME HOME CONTENTS MEDICAL MEDICAL GASEOUS 1 EQUIPME EQUIPME MO SUPPLY=1 UNIT PORTABLE E0443 DOREEN DOREEN O2 5 HOME HOME CONTENTS MEDICAL MEDICAL GASEOUS 1 EQUIPME EQUIPME MO SUPPLY=1 UNIT BASIC 39803 COMBINED COMBINED METABOLIC 5 PHYSICIAN PHYSICIAN PANEL S LA S LA CALCIUM TOTAL PORTABLE E0443 DOREEN DOREEN O2 5 HOME HOME CONTENTS MEDICAL MEDICAL GASEOUS 1 EQUIPME EQUIPME MO SUPPLY=1 UNIT BLD GLU A4253 CLINIC CLINIC TEST/REAG 5 PHARMACY PHARMACY T STRIPS HOME BLD GLU PORTABLE E0443 DOREEN DOREEN O2 5 HOME HOME CONTENTS MEDICAL MEDICAL GASEOUS 1 EQUIPME EQUIPME MO SUPPLY=1 UNIT PORTABLE E0443 DOREEN DOREEN O2 4 HOME HOME CONTENTS MEDICAL MEDICAL GASEOUS 1 EQUIPME EQUIPME MO SUPPLY=1 UNIT BASIC 12503 [facility] MEZA METABOLIC 4 [facility] PANEL INC INC CALCIUM TOTAL COLLECTIO 06648 [facility]NA MEZA N VENOUS 4 [facility] BLOOD [facility] INC VENIPUNCT URE LIPID 90934 [facility] MEZA PANEL 4 [facility] INC INC HEMOGLOBI 79714 [facility] MEZA N 4 [facility] GLYCOSYLA INC INC KASSI A1C PORTABLE E0443 DOREEN DOREEN O2 4 HOME HOME CONTENTS MEDICAL MEDICAL GASEOUS 1 EQUIPME EQUIPME MO SUPPLY=1 UNIT BLD GLU A4253 CLINIC CLINIC TEST/REAG 4 PHARMACY PHARMACY T STRIPS HOME BLD GLU DIAB ONLY A5500 CLINIC CLINIC FIT CSTM 4 PHARMACY PHARMACY PREP&SPL SHOE MX DNSITY INSRT FOR DIAB A5513 CLINIC CLINIC ONLY MX 4 PHARMACY PHARMACY DNSITY INSRT CSTM MOLD CSTM EA Encounters Encounter Start End Date Code Location Performer Type Date [facility] SUSANA - OTHER 6 6 [facility] SUSANA - 5 5 [facility] In[facility] IMP Susana Vivar ([place]) 3 09:04 3 13:35 [facility] Inpatient JAZIEL Vivar ([place]) 3 16:06 3 10:40 [facility] Inpatient JAZIEL Bowen MD (IN) 3 15:03 3 12:00 [facility] Inpatient JAZIEL Bowen MD (IN) 3 19:49 3 15:03 [facility]
--- OUTSIDE RECORDS SUMMARY | 2016-07-07 21:08 | External Medical Summary Rpt ---
Author Author , Organization [employer] Address Unknown Phone Unavailable Care Team Providers Care Director Business Travel Name Role Phone [facility], Unavailable Unavailable [facility], Unavailable Unavailable [facility] Unavailable Unavailable [place], [facility] [place] [facility] Unavailable Unavailable [place], [facility] KIAN AUGUST, Unavailable Unavailable July AUGUST [facility] Un[facility] Unavailable [facility], [facility] Unavailable Unavailable [facility], [facility] MARLEY HAYNES, MARLEY HAYNES [...] 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 [id number] SPONDYLOSIS 11-13-2015 [facility] W/O HOME 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 M545 LOW BACK 11-13-2015 [facility] PAIN HOME MEDICAL EQUIPME E119 TYPE 2 10-26-2015 CLINIC DIABETES PHARMACY MELLITUS WITHOUT COMPLICATIO NS I2510 ASHD AK CHIN 07-15-2015 [facility] CORONARY [facility] ARTERY W/O INC ANGINA PECTORIS R030 ELEVATED 07-15-2015 [facility] BLOOD-PRESS [facility] URE READING INC WITHOUT DX HTN 496 CHRONIC 11-25-2014 [facility] HOME OBSTRUCTION MEDICAL NEC EQUIPME 4439 UNSPECIFIED 09-08-2014 [facility] DISEASE 2724 OTHER AND 08-25-2014 [facility] UNSPECIFIED [facility] INC HYPERLIPIDE BRY 14392 OSTEOARTHRO 08-25-2014 [facility] S UNSPEC [facility] WHETHER INC GEN/LOC UNSPEC SITE 7962 ELEVATED BP 08-25-2014 [facility] WITHOUT DX INC HYPERTENSIO N V7644 SPECIAL 08-25-[address] [place] [address] 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.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 [facility] extremity 482.1 Pneumonia [place] due to [facility] [address] [facility] [id number] Active [facility] 593.9 Renal [place] impairment [facility] 780.57 Sleep apnea [facility] 799.02 Hypoxia [facility] [id number] Chronic [facility] E11.9 TYPE 2 DIABETES MELLITUS WITHOUT COMPLICATIO NS E78.4 OTHER HYPERLIPIDE [facility] J20.9 ACUTE BRONCHITIS, UNSPECIFIED J44.1 CHRONIC OBSTRUCTIVE [...] RO 07 -2 SE 90 4- Lo VA 07 20 ng DE 22 13 er [...] RO 07 -1 SE 90 2- Lo VA 07 20 ng DE 22 13 er [...] RO 07 -0 SE 90 9- Lo VA 07 20 ng DE 22 13 er [...] nces retati t Range on Glucose BldC [facility] (10-05-2012 11:32) Glucose 186 70-110 complet BldC 013 mg/dl ed Glucomt 11:32 r-nc Glucose dC [facility] (10-05-2012 06:21) Glucose 204 70-110 complet BldC 013 mg/dl ed Glucomt 06:21 r-mCnc Glucose BldC [facility] (10-04-2012 20:05) Glucose 290 70-110 complet BldC 013 mg/dl ed Glucomt 20:05 r-mCnc Glucose BldC [facility] (10-04-2012 16:44) Glucose 339 70-110 High complet BldC 013 mg/dl alert ed Glucomt 16:44 r-mCnc Glucose BldC [facility] (10-04-2012 11:59) Glucose 203 70-110 complet BldC 013 mg/dl ed Glucomt 11:59 r-nc Glucose BldC [facility] (10-04-2012 06:40) Glucose 261 70-110 complet BldC 013 mg/dl ed Glucomt 06:40 r-[facility] BASIC METABOLIC PANEL (10-04-2012 06:20) Glucose [...] K/MM3 ed Bld 06:20 Auto Glucose BldC [facility] (10-03-2012 22:06) Glucose 10-03-2 261 70-110 complet BldC 013 mg/dl ed Glucomt 22:06 r-[facility] Glucose BldC [facility] (10-03-2012 16:43) Glucose 10-03-2 182 70-110 complet BldC 013 mg/dl ed [facility] 16:[facility] (10-03-2012 11:27) Glucose 254 70-110 complet BldC 013 mg/dl ed [facility] 11:[facility] BASIC METABOLIC PANEL (10-03-2012 06:35) Glucose 446 [...] MYCOPLASMA IGM (RAPID) (10-01-2012 08:24) MYCOPLA 10-01-2 NON-LYNDSAY NONREAC complet SMA IGM 013 CTIVE [...] complet 013 mg/dL 1 ed SerPl-m 06:11 [facility] COMPREHENSIVE METABOLIC PANEL (06-13-2012 06:15) Glucose 05-2 [...] YOUR DISPENSIN 7 PHARMACY PHARMACY G FEE [employer] INHALATIO N RX; PER 30 DAYS ADMN SET A7003 YOUR YOUR SM VOL 7 PHARMACY PHARMACY NONFILTR [employer] PNEUMAT NEBULIZR DISPBL ALBUTEROL J7620 YOUR YOUR TO 2.5 7 PHARMACY PHARMACY MG & [employer] IPRATROPI UM BROM TO 0.5 MG O2 [...] HOME 85%/>02 MEDICAL MEDICAL CONC AT [facility] E0260 DOREEN LOGAN SEMI-ELEC 6 HOME HOME W/ANY MEDICAL MEDICAL TYPE SIDE EQUIPME EQUIPME RAIL W/MATTRSS ADMN SET A7003 YOUR YOUR SM VOL 6 PHARMACY PHARMACY NONFILTR [email or web address] PNEUMAT NEBULIZR DISPBL ALBUTEROL J7620 YOUR YOUR TO 2.5 6 PHARMACY PHARMACY [employer] LLC IPRATROPI UM BROM TO 0.5 MG PHRM Q0513 YOUR YOUR DISPENSIN 6 PHARMACY PHARMACY G FEE [email or web address] INHALATIO N RX; PER 30 DAYS [...] TO 2.5 6 PHARMACY PHARMACY MG & [email or web address] IPRATROPI UM BROM TO 0.5 MG ADMN SET A7003 YOUR YOUR SM VOL 6 PHARMACY PHARMACY NONFanydooR LLC PNEUMAT NEBULIZR DISPBL PHRM Q0513 YOUR YOUR DISPENSIN 6 PHARMACY PHARMACY G [employer] INHALATIO N RX; PER 30 DAYS PORTABLE E0443 DOREEN DOREEN O2 6 HOME HOME CONTENTS MEDICAL MEDICAL GASEOUS 1 EQUIPME EQUIPME MO SUPPLY=1 UNIT COLLECTIO 24191 [facility] MEZA N VENOUS 6 [facility] BLOOD INC INC VENIPUNCT URE COMPREHEN 58938 [facility] MEZA SIVE 6 [facility] METABOLIC INC INC PANEL HEMOGLOBI 84590 [facility] ROACH [place] N 6 MEM [facility]OS[facility] GLYCOSYLA INC KASSI A1C BLOOD 17720 [facility] MEZA COUNT 6 [facility] COMPLETE INC INC AUTO&AUTO DIFRNTL WBC LIPID 08885 [facility] MEZA PANEL 6 MEM [facility]OS[facility] MEM [...] 1 EQUIPME EQUIPME MO SUPPLY=1 UNIT NON-INVAS 85276 [facility] MEZA NÉSTOR 5 [facility] PHYSIOLOG INC INC IC STUDY EXTREMITY 3 LEVLS LIPID 24388 [facility] MEZA PANEL 5 [facility] INC INC BLOOD 95011 [facility] MEZA COUNT 5 [facility] COMPLETE INC INC AUTO&AUTO DIFRNTL WBC PROSTATE G0103 [facility] MEZA CANCER 5 [facility] SCREENING INC INC ; PSA TEST 25 17798 [facility] MEZA HYDROXY 5 [facility] INCLUDES [place] [address] [facility] MEZA MAGNESIUM 5 [facility] INC INC PORTABLE E0443 DOREEN DOREEN O2 5 HOME HOME CONTENTS MEDICAL MEDICAL GASEOUS 1 EQUIPME EQUIPME MO SUPPLY=1 UNIT COMPREHEN 18767 [facility] MEZA SIVE 5 [facility] METABOLIC INC INC PANEL COLLECTIO 09786 [facility] MEZA N VENOUS 5 MEM HOSP [...] 1 EQUIPME EQUIPME MO SUPPLY=1 UNIT BASIC 68618 COMBINED COMBINED METABOLIC 5 PHYSICIAN PHYSICIAN PANEL [...] 1 EQUIPME EQUIPME MO SUPPLY=1 UNIT BASIC 47159 [facility] MEZA METABOLIC [address] [facility] PANEL INC INC CALCIUM TOTAL COLLECTIO 33263 SUSANA MEZA N VENOUS 4 [facility] BLOOD [facility] INC VENIPUNCT URE LIPID 93999 SUSANA MEZA PANEL 4 [facility] INC INC HEMOGLOBI 67265 SUSANA MEZA N [address] [facility] GLYCOSYLA INC INC KASSI A1C PORTABLE [...] End Date Code Location Performer Type Date [facility] 6 6 [facility] SUSA[facility] - 5 5 [facility] - 5 5 [facility] - 4 4 [facility] In[facility] IMP Susana Vivar ([place]) 3 09:04 3 13:35 [facility] Inpatient JAZIEL Vivar ([place]) 3 16:06 3 10:40 [facility] Inpatient JAZIEL Bowen MD (IN) 3 15:03 3 12:00 [facility] Inpatient JAZIEL Bowen MD (IN) 3 19:49 3 15:03 [facility]
--- OUTSIDE RECORDS SUMMARY | 2016-07-07 21:11 | External Medical Summary Rpt ---
Author Author , Organization [employer] Address Unknown Phone Unavailable Care Team Providers Care Poker Room Manager Name Role Phone DANIELSON ALL, DANIELSON ALL Unavailable Unavailable [facility], Unavailable Unavailable CL[facility]IC PHARM[facility]Y [facility], Unavailable Unavailable [facility] Unavailable Unavailable [place], [facility] [place] [facility] Unavailable Unavailable [place], [facility] [place] [facility] Unavailable Unavailable INC, [facility] Unavailable [facility]available IM[facility]ING [facility], [facility] ROACH DALLAS, ROACH DALLAS Unavailable Unavailable [facility] Unavailable Unavailable EQUIPME, [facility] Unavailable Unavailable EQUIPME, [facility], Unavailable Unavailable [facility] Purpose Continuity of Care Document - 01-15-2014 through 2016 Problems Code Diagnosis DOS Provider Status J449 CHRONIC 04-25-2016 [facility] 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 [id number] SPONDYLOSIS 11-13-2015 [facility] W/O HOME 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 M545 LOW BACK 11-13-2015 [facility] PAIN HOME MEDICAL EQUIPME E119 TYPE 2 10-26-2015 CLINIC DIABETES PHARMACY MELLITUS WITHOUT COMPLICATIO NS I2510 ASHD CHIGNIK LAGOON 07-15-2015 [facility] CORONARY [facility] ARTERY W/O INC ANGINA PECTORIS R030 ELEVATED 07-15-2015 [facility] BLOOD-PRESS [facility] URE READING INC WITHOUT DX HTN 496 CHRONIC 11-25-2014 [facility] AIRWAY HOME OBSTRUCTION MEDICAL NEC EQUIPME 4439 UNSPECIFIED 09-08-2014 [place] [facility] DISEASE 2724 OTHER AND 08-25-2014 [facility] UNSPECIFIED [facility] INC HYPERLIPIDE BRY 27787 OSTEOARTHRO 08-25-2014 [facility] UNSPEC [facility] WHETHER INC GEN/LOC UNSPEC SITE 7962 ELEVATED BP 08-25-2014 [facility]ING [facility] WITHOUT DX INC HYPERTENSIO N V7644 SPECIAL 08-25-2014 [facility] SCREENING [facility] MALIGNANT INC NEOPLASM OF PROSTATE V5861 LONG-TERM 05-25-2014 COMBINED (CURRENT) PHYSICIANS USE OF [place] ANTICOAGULA NTS 36071 DIAB W/O 04-03-2014 CLINIC COMP TYPE PHARMACY II/UNS NOT STATED [facility] 4019 UNSPECIFIED 01-30-2014 [facility] HYPERT[facility] INC N Procedures Procedure DOS Code Location Performer Comment PRTBLE E0431 DOREEN LOGAN GASEOUS 7 HOME HOME O2 SYS MEDICAL MEDICAL RENT; EQUIPME EQUIPME FLWMTR HUMIDFR&M ASK O2 CONC 1 E1390 DOREEN LOGAN DEL PORT 7 HOME HOME 85%/>02 MEDICAL MEDICAL CONC AT EQUIPME EQUIPME PRSC FLW RATE PHRM Q0513 YOUR YOUR DISPENSIN 7 PHARMACY PHARMACY G FEE [employer] INHALATIO N RX; PER 30 DAYS ADMN SET A7003 YOUR YOUR SM VOL 7 PHARMACY PHARMACY NONFILTR [employer] PNEUMAT NEBULIZR DISPBL ALBUTEROL J7620 YOUR YOUR TO 2.5 7 PHARMACY PHARMACY [facility] [employer] [facility] IPRATROPI UM BROM TO 0.5 MG PRTBLE E0431 DOREEN LOGAN GASEOUS 7 HOME HOME O2 SYS MEDICAL MEDICAL RENT; EQUIPME EQUIPME FLWMTR HUMIDFR&M ASK O2 CONC 1 E1390 DOREEN LOGAN DEL PORT 7 HOME HOME 85%/>02 MEDICAL MEDICAL CONC AT EQUIPME EQUIPME PRSC FLW RATE O2 CONC 1 E1390 DOREEN LOGAN DEL PORT 6 HOME HOME 85%/>02 MEDICAL MEDICAL CONC AT EQUIPME EQUIPME PRSC FLW RATE PRTBLE E0431 DOREEN LOGAN GASEOUS 6 HOME HOME O2 SYS MEDICAL MEDICAL RENT; EQUIPME EQUIPME FLWMTR HUMIDFR&M ASK HOS BED E0260 DOREEN LOGAN SEMI-ELEC 6 HOME HOME W/ANY MEDICAL MEDICAL TYPE SIDE EQUIPME EQUIPME RAIL W/MATTRSS ADMN SET A7003 YOUR YOUR SM VOL 6 PHARMACY PHARMACY NONFILTR LLC LLC PNEUMAT NEBULIZR DISPBL PHRM Q0513 YOUR YOUR DISPENSIN 6 PHARMACY PHARMACY G [employer] INHALATIO N RX; PER 30 DAYS ALBUTEROL J7620 YOUR YOUR TO 2.5 6 PHARMACY PHARMACY MG & [employer] IPRATROPI UM BROM TO 0.5 MG BLD GLU A4253 CLINIC CLINIC TEST/REAG 6 PHARMACY PHARMACY T STRIPS HOME BLD GLU MON-50 PRTBLE E0431 DOREEN LOGAN GASEOUS 6 HOME HOME O2 SYS MEDICAL MEDICAL RENT; EQUIPME EQUIPME FLWMTR HUMIDFR&M ASK O2 CONC 1 E1390 DOREEN LOGAN DEL PORT 6 HOME HOME 85%/>02 MEDICAL MEDICAL CONC AT EQUIPME EQUIPME PRSC FLW RATE HOS BED E0260 DOREEN DUMONTRELL SEMI-ELEC 6 HOME HOME W/ANY MEDICAL MEDICAL TYPE SIDE EQUIPME EQUIPME RAIL W/MATTRSS PRTBLE E0431 DOREEN LOGAN GASEOUS 6 HOME HOME O2 SYS MEDICAL MEDICAL RENT; EQUIPME EQUIPME FLWMTR HUMIDFR&M ASK O2 CONC 1 E1390 DOREEN LOGAN DEL PORT 6 HOME HOME 85%/>02 MEDICAL MEDICAL CONC AT EQUIPME EQUIPME PRSC FLW RATE HOS BED E0260 DOREEN DUMONTRELL SEMI-ELEC 6 HOME HOME W/ANY MEDICAL MEDICAL TYPE SIDE EQUIPME EQUIPME RAIL W/MATTRSS HOS BED E0260 DOREEN DUMONTRELL SEMI-ELEC 6 HOME HOME W/ANY MEDICAL MEDICAL TYPE SIDE EQUIPME EQUIPME RAIL W/MATTRSS ADMN SET A7003 YOUR YOUR SM VOL 6 PHARMACY PHARMACY NONFILTR [employer] PNEUMAT NEBULIZR DISPBL PHRM Q0513 YOUR YOUR DISPENSIN 6 PHARMACY PHARMACY G FEE [employer] INHALATIO N RX; PER 30 DAYS ALBUTEROL J7620 YOUR YOUR TO 2.5 6 PHARMACY PHARMACY [employer] IPRATROPI UM BROM TO 0.5 MG PORTABLE E0443 DOREEN DUMONTRELL O2 6 HOME HOME CONTENTS MEDICAL MEDICAL GASEOUS 1 EQUIPME EQUIPME MO SUPPLY=1 UNIT BLOOD 40390 [facility] ME[facility] COUNT 6 [facility] COMPLETE INC INC AUTO&AUTO DIFRNTL WBC LIPID 61486 [facility] MEZA PANEL 6 [facility] INC INC HEMOGLOBI 33701 [facility] HAYNES N 6 MEM HOS[facility] GLYCOSYLA INC KASSI A1C COLLECTIO 17208 [facility]USANA N VENOUS 6 [facility] BLOOD INC INC VENIPUNCT URE COMPREHEN 10565 [facility] MEZA SIVE 6 [facility] METABOLIC INC INC PANEL HOS BED E0260 DOREEN DOREEN SEMI-ELEC 6 [...] 1 EQUIPME EQUIPME MO SUPPLY=1 UNIT NON-INVAS 99842 [place] DANIELSON ALL NÉSTOR 5 MEDICAL PHYSIOLOG IMAGING IC STUDY ASS EXTREMITY 3 LEVLS 25 88625 [facility] MEZA HYDROXY 5 [facility] INCLUDES [place] [address] [facility] MEZA MAGNESIUM 5 [facility] INC INC PORTABLE E0443 DOREEN DOREEN O2 5 HOME HOME CONTENTS MEDICAL MEDICAL GASEOUS 1 EQUIPME EQUIPME MO SUPPLY=1 UNIT COMPREHEN 18875 [facility] MEZA SIVE 5 [facility] METABOLIC INC INC PANEL COLLECTIO 65084 SUSANASARAH MEZA N VENOUS 5 [facility] BLOOD INC INC VENIPUNCT URE PROSTATE G0103 [facility] CANCER 5 [facility] SCREENING INC INC ; PSA TEST LIPID 45317 [facility] MEZA PANEL 5 [facility] INC INC BLOOD 38616 [facility] COUNT 5 [facility] COMPLETE INC INC AUTO&AUTO DIFRNTL WBC PORTABLE E0443 DOREEN DOREEN O2 5 HOME HOME CONTENTS MEDICAL MEDICAL GASEOUS 1 EQUIPME EQUIPME MO SUPPLY=1 UNIT PORTABLE E0443 DOREEN DOREEN O2 5 HOME HOME CONTENTS MEDICAL MEDICAL GASEOUS 1 EQUIPME EQUIPME MO SUPPLY=1 UNIT PORTABLE E0443 DOREEN DOREEN O2 5 HOME HOME CONTENTS MEDICAL MEDICAL GASEOUS 1 EQUIPME EQUIPME MO SUPPLY=1 UNIT BASIC 75435 COMBINED COMBINED METABOLIC 5 PHYSICIAN PHYSICIAN PANEL S LA S LA CALCIUM TOTAL PORTABLE E0443 DOREEN DOREEN O2 5 HOME HOME CONTENTS MEDICAL MEDICAL GASEOUS 1 EQUIPME EQUIPME MO SUPPLY=1 UNIT BLD GLU A4253 CLINIC CLINIC TEST/REAG 5 PHARMACY PHARMACY T STRIPS HOME BLD GLU MON-50 PORTABLE E0443 DOREEN DOREEN O2 5 HOME HOME CONTENTS MEDICAL MEDICAL GASEOUS 1 EQUIPME EQUIPME MO SUPPLY=1 UNIT PORTABLE E0443 DOREEN DOREEN O2 4 HOME HOME CONTENTS MEDICAL MEDICAL GASEOUS 1 EQUIPME EQUIPME MO SUPPLY=1 UNIT LIPID 84278 [facility] PANEL 4 [facility] INC INC COLLECTIO 86085 [facility] MEZA N VENOUS 4 [facility] BLOOD INC INC VENIPUNCT URE HEMOGLOBI 75550 S[facility]NA MEZA N 4 [facility] GLYCOSYLA INC INC KASSI A1C BASIC 21678 SUSANA [facility] METABOLIC 4 [facility] PANEL INC INC CALCIUM TOTAL PORTABLE E0443 DOREEN DOREEN O2 4 HOME HOME CONTENTS MEDICAL MEDICAL GASEOUS 1 EQUIPME EQUIPME MO SUPPLY=1 UNIT FOR DIAB A5513 CLINIC CLINIC ONLY MX 4 PHARMACY PHARMACY DNSITY INSRT CSTM MOLD CSTM EA BLD GLU A4253 CLINIC CLINIC TEST/REAG 4 PHARMACY PHARMACY T STRIPS HOME BLD GLU MON-50 DIAB ONLY A5500 CLINIC CLINIC FIT CSTM 4 PHARMACY PHARMACY PREP&SPL SHOE MX DNSITY INSRT Encounters Encounter Start End Date Code Location Performer Type Date [facility] SUSANA - OTHER 6 6 [facility] SUSANA - 5 5 [facility] SUSANA - 5 5 [facility] - 4 4 [facility]
--- OUTSIDE RECORDS SUMMARY | 2016-07-07 21:11 | External Medical Summary Rpt ---
Author Author [employer] Alan[employer], [employer] Organization [employer] Address Unknown Phone Unavailable
--- OUTSIDE RECORDS SUMMARY | 2016-07-07 21:11 | External Medical Summary Rpt ---
Demographics Preferred Language Urdu Marital Status Unknown Congregation Affiliation Unknown Race Unknown Ethnic Group Unknown Author Author , Organization [employer] Address Unknown Phone Unavailable Purpose Continuity of Care Document - through 2016 Immunization No patient found.
--- OUTSIDE RECORDS SUMMARY | 2016-07-07 21:11 | External Medical Summary Rpt ---
Author Author , Organization [facility] Address Unknown Phone Unavailable Care Team Providers Care Conveyor Weigher Operator Name Role Phone DANIELSON ALL, DANIELSON ALL Unavailable Unavailable [facility], [facility]available [facility] [place] Un[facility] Un[facility], [facility], [facility] ROACH DALL[place], ROACH DALLAS Unavailable Unavailable [facility] Unavailable Unavailable [facility], [facility] Unavailable Unavailable [facility], [facility], Unavailable Unavailable [facility] Purpose Continuity of Care Document - 01-15-2014 through 2016 Problems Code Diagnosis DOS Provider Status J449 CHRONIC 04-25-2016 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 [id number] SPONDYLOSIS 11-13-2015 [facility] W/O HOME 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 M545 LOW BACK 11-13-2015 [facility] PAIN HOME MEDICAL EQUIPME E119 TYPE 2 10-26-2015 CLINIC DIABETES PHARMACY MELLITUS WITHOUT COMPLICATIO NS I2510 ASHD KLAWOCK 07-15-2015 [facility] CORONARY [facility] ARTERY W/O INC ANGINA PECTORIS R030 ELEVATED 07-15-2015 [facility] URE READING INC WITHOUT DX HTN 496 CHRONIC 11-25-2014 [facility] AIRWAY HOME OBSTRUCTION MEDICAL NEC EQUIPME 4439 UNSPECIFIED 09-08-2014 [facility] DISEASE 2724 OTHER AND 08-25-2014 [facility]PEC[facility]IED [facility] INC HYPERLIPIDE BRY 41622 OSTEOARTHRO 08-25-2014 [facility] S [facility]NSPEC [facility] WHETHER INC GEN/LOC UNSPEC SITE 7962 ELEVATED BP 08-25-2014 [facility] READING [facility] WITHOUT DX INC HYPERTENSIO N V7644 SPECIAL 08-25-2014 [facility]ENING [facility] MALIGNANT INC NEOPLASM OF PROSTATE V5861 LONG-TERM 05-25-2014 [facility] USE OF [place] ANTICOAGULA NTS 44665 DIAB W/O 04-03-2014 CLINIC COMP TYPE PHARMACY II/UNS NOT STATED [facility] UNSPECIFIED 01-30-2014 [facility] HYPERT[facility] N Procedures Procedure DOS Code Location Performer Comment PRTBLE E0431 [facility] LOGAN GASEOUS 7 HOME HOME O2 SYS MEDICAL MEDICAL RENT; EQUIPME EQUIPME FLWMTR HUMIDFR&M ASK O2 CONC 1 E1390 [facility] LOGAN DEL PORT 7 HOME HOME 85%/>02 MEDICAL MEDICAL CONC AT EQUIPME EQUIPME PRSC FLW RATE PHRM Q0513 YOUR YOUR DISPENSIN 7 PHARMACY PHARMACY G [facility] [employer] INHALATIO N RX; PER 30 DAYS ADMN SET A7003 YOUR YOUR SM VOL 7 PHARMACY PHARMACY NONFILTR [employer] PNEUMAT NEBULIZR DISPBL ALBUTEROL J7620 YOUR YOUR TO 2.5 7 PHARMACY PHARMACY [facility] [employer] IPRATROPI UM BROM TO 0.5 MG [...] YOUR YOUR DISPENSIN 6 PHARMACY PHARMACY G [employer] INHALATIO N RX; PER 30 DAYS ALBUTEROL J7620 YOUR YOUR TO 2.5 6 PHARMACY PHARMACY MG & [employer] IPRATROPI UM BROM TO 0.5 MG [...] YOUR SM VOL 6 PHARMACY PHARMACY NONFILTR [employer] PNEUMAT NEBULIZR DISPBL PHRM Q0513 YOUR YOUR DISPENSIN 6 PHARMACY PHARMACY G [facility] [employer] INHALATIO N RX; PER 30 DAYS ALBUTEROL J7620 YOUR YOUR TO 2.5 6 PHARMACY PHARMACY [employer] [facility] IPRATROPI UM BROM TO 0.5 MG PORTABLE E0443 [facility] DUMONTRELL O2 6 HOME HOME CONTENTS MEDICAL MEDICAL GASEOUS 1 EQUIPME EQUIPME MO SUPPLY=1 UNIT BLOOD 94147 [facility] COUNT 6 [facility] COMPLETE INC INC AUTO&AUTO DIFRNTL WBC LIPID 58612 [facility] PANEL 6 [facility] INC INC HEMOGLOBI 95639 [facility] HAYNES N 6 [facility] GLYCOSYLA INC KASSI A1C COLLECTIO 54913 [facility] N VENOUS 6 [facility] BLOOD INC INC VENIPUNCT URE COMPREHEN 42682 [facility] SIVE 6 [facility] MEM [...] 1 EQUIPME EQUIPME MO SUPPLY=1 UNIT NON-INVAS 03965 [facility] DANIEL[facility] NÉSTOR 5 MEDICAL PHYSIOLOG IMAGING IC STUDY ASS EXTREMITY 3 LEVLS 25 00345 [facility] HYDROXY 5 [facility] [place]ES [place] [address] [facility] MAGNESIUM 5 [facility] INC INC PORTABLE E0443 [facility] DOREEN O2 5 HOME HOME CONTENTS MEDICAL MEDICAL GASEOUS 1 EQUIPME EQUIPME MO SUPPLY=1 UNIT COMPREHEN 55904 [facility] SIVE 5 [facility] METABOLIC INC INC PANEL COLLECTIO 66663 [facility] N VENOUS 5 [facility] BLOOD INC INC VENIPUNCT URE PROSTATE G0103 [facility] CANCER 5 [facility] SCREENING INC INC ; PSA TEST LIPID 26267 [facility] PANEL 5 [facility] INC BLOOD 21800 [facility] COUNT 5 [facility] MEM [...] 1 EQUIPME EQUIPME MO SUPPLY=1 UNIT BASIC 38363 [facility] COMBINED METABOLIC 5 PHYSICIAN PHYSICIAN PANEL [...] 1 EQUIPME EQUIPME MO SUPPLY=1 UNIT LIPID 28103 [facility] PANEL 4 [facility] INC INC COLLECTIO 15004 [facility] N VENOUS 4 [facility] BLOOD INC INC VENIPUNCT URE HEMOGLOBI 04694 [facility] N 4 [facility] GLYCOSYLA INC INC KASSI A1C BASIC 68804 [facility] METABOLIC 4 [facility] PANEL INC INC CALCIUM TOTAL PORTABLE [...] End Date Code Location Performer Type Date [facility] - OTHER 6 6 [facility] - 5 5 [facility] - 5 5 [facility] - 4 4 [facility]
--- OUTSIDE RECORDS SUMMARY | 2016-07-07 21:11 | External Medical Summary Rpt ---
Demographics Preferred Language Azeri Marital Status Unknown Mosque Affiliation Unknown Race Unknown Ethnic Group Unknown Author Author , Organization [employer] Address Unknown Phone Unavailable Purpose Continuity of Care Document - through 2016 Immunization No patient found.
--- OUTSIDE RECORDS SUMMARY | 2016-07-07 21:22 | External Medical Summary Rpt ---
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-15-2015 [facility] ARTERY W/O INC ANGINA PECT[place]IS R030 ELEVATED 07-15-2015 [facility] URE READING INC WITHOUT DX HTN 496 CHRONIC 11-25-2014 [facility] AIRWAY HOME OBSTRUCTION MEDICAL NEC EQUIPME 4439 UNSPECIFIED 09-08-2014 [facility] DISEASE 2724 OTHER AND 08-25-2014 [facility]PEC[facility] INC HYPERLIPIDE BRY 65958 OSTEOARTHRO 08-25-2014 [facility] WHETHER INC GEN/LOC UNSPEC SITE 7962 ELEVATED BP 08-25-2014 [facility] [place] [place] [facility] WITHOUT DX INC HYPERTENSIO N V7644 SPECIAL 08-25-2014 [facility] SCREENING [facility] MALIGNANT INC NEOPLASM OF PROSTATE V5861 LONG-TERM 05-25-2014 [facility] (CURRENT) [facility]ICI[facility] USE OF [place] ANTICOAGULA N[place] 41334 DIAB W/O 04-03-2014 CLINIC COMP TYPE PHARMACY II/UNS NOT STATED UNCNTRL 4019 UNSPECIFIED 01-30-2014 [place] ESSENTIAL [facility] HYPERTENSIO INC N [id number] Constip[facility] 272.4 Hyperlipide [facility] 276.1 Hyponatremi [facility] 276.8 Hypokalemia [facility] 401.1 Benign [facility] n [id number] Diabetes [place] mellitus [address] 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 482.1 Pneumonia [place] due to [facility] [address] [facility] [id number] Active [facility] 593.9 Renal [place] impairment [facility] 780.57 Sleep apnea [facility] 799.02 Hypoxia [facility] [id number] Chronic [facility] E11.9 TYPE 2 DIABETES MELLITUS WITHOUT COMPLICATIO NS E78.4 OTHER HYPERLIPIDE [facility] J20.9 ACUTE BRONCHITIS, UNSPECIFIED J44.1 CHRONIC [...] 00 07 1 No XA 45 -2 MA 62 7- Lo O 02 20 ng 20 06 13 er 3 MG Ac ti TA ve BL ET MA 00 07 1 No ED 05 -2 [...] 00 07 1 No XA 45 -2 MA 62 5- Lo O 02 20 ng [...] RO 07 -2 SE 90 4- Lo MN 07 20 ng DE 22 13 er [...] 51 07 4 No TO 07 -2 MA 90 4- Lo OL 25 20 ng OL 52 13 er 0 TA Ac RT ti RA ve TE 25 MG TA B PA 51 07 4 No NT 07 -2 OP 90 4- Lo RA 05 20 ng ZO 12 13 er LE 0 Ac SO ti D ve DR 40 MG TA B MA 51 07 4 No AV 07 -2 [...] RO 07 -1 SE 90 2- Lo MN 07 20 ng DE 22 13 er [...] 00 06 4 No XA 45 -1 MA 62 2- Lo O 02 20 ng [...] ti 10 ve MG TA BL ET MA 00 06 5 No ED 05 -1 [...] 51 06 5 No TO 07 -1 MA 90 1- Lo OL 25 20 ng [...] 0, 00 0 UN IT S/ 5M MA 00 04 3 No ED 05 -1 [...] 00 04 4 No XA 45 -0 MA 62 9- Lo O 02 20 ng 20 06 13 er 3 MG Ac ti TA ve BL ET FU 51 04 4 No RO 07 -0 SE 90 9- Lo MN 07 20 ng DE 22 13 er [...] 51 04 5 No TO 07 -0 MA 90 8- Lo OL 25 20 ng [...] ti L ve 50 MG TA B MA 00 04 5 No OT 00 -0 [...] 00 04 5 No XA 45 -0 MA 62 3- Lo O 02 20 ng [...] 51 04 6 No TO 07 -0 MA 90 2- Lo OL 25 20 ng [...] nces retati t Range on Glucose BldC Glucomtr-mCdc (10-05-2012 11:32) Glucose 186 70-110 complet BldC 013 mg/dl ed Glucomt 11:32 r-mCnc Glucose dC [facility]tr[facility] (10-05-2012 06:21) Glucose 204 70-110 complet BldC 013 mg/dl ed Glucomt 06:21 r-mCnc Glucose BldC Glucomtr-nc (10-04-2012 20:05) Glucose 290 70-110 complet BldC 013 mg/dl ed Glucomt 20:05 r-mCnc Glucose BldC Glucomtr-mCnc (10-04-2012 16:44) Glucose 339 70-110 High complet BldC 013 mg/dl alert ed Glucomt 16:44 r-mCnc Glucose BldC Glucomtr-mCnc (10-04-2012 11:59) Glucose 203 70-110 complet BldC 013 mg/dl ed Glucomt 11:59 r-mCnc Glucose BldC Glucomtr-mCnc (10-04-2012 06:40) Glucose 261 70-110 complet BldC 013 mg/dl ed Glucomt 06:40 r-nc BASIC METABOLIC PANEL (10-04-2012 06:20) Glucose 257 74-106 complet 013 mg/dL ed Bld-mCn 06:20 c BUN 16 7-18 complet Bld-mCn 013 [...] SerPl-m 06:20 Cnc PROTIME/INR (10-04-2012 06:20) PROTHRO 22.0 9.9-11. complet MBIN 013 SECONDS 6 ed TIME 06:20 INR Bld 2.04 0.9-1.1 complet 013 UNK ed 06:20 CBC with AUTO DIFF (10-04-2012 06:20) WBC # 10-04-2 9.5 4.8-10. complet Bld 013 K/MM3 8 ed Auto 06:20 RBC # 10-04-2 4.01 4.6-6.2 complet Bld 013 M/mm3 ed Auto 06:20 Hgb 10.7 14.1-18 complet Bld-mCn 013 g/dL .0 ed c 06:20 Hct Fr 34.5 % 42.0-52 complet Bld 013 .0 ed 06:20 MCV RBC 86.1 fl 82.2-97 complet 013 .8 ed 06:20 MCH RBC 07-27-2 26.7 pg 27-31.2 complet Qn 013 ed Auto 06:20 MEAN 10-04-2 31.0 31.8-35 complet CORPUSC 013 g/dl .4 ed ULAR 06:20 HGB CONC RDW RBC 10-04-2 15.4 % 11.5-17 complet Auto 013 .5 ed 06:20 Platele 10-04-2 514 142-424 complet t Bld 013 K/mm3 ed Ql 06:20 Manual MEAN 10-04-2 6.8 fl 7.4-10. complet PLATELE 013 4 ed T 06:20 VOLUME Granulo 10-04-2 83.2 % 37.0-80 complet cytes 013 .0 ed Fr Bld 06:20 Auto LYMPH % 07-2 12.9 % 10-50 complet 013 ed 06:20 Monocyt 07-2 3.7 % 1.7-9.3 complet es Fr 013 [...] 013 K/MM3 ed Bld 06:20 Auto Glucose dC [facility]com[facility] (10-03-2012 22:06) Glucose 261 70-110 complet BldC 013 mg/dl ed Glucomt 22:06 r-[facility] Glucose BldC [facility]tr[facility] (10-03-2012 16:43) Glucose 2 182 70-110 complet BldC 013 mg/dl ed [facility] 16:43 [facility] (10-03-2012 11:27) Glucose 254 70-110 complet BldC 013 mg/dl ed Glucomt 11:27 [facility] BASIC METABOLIC PANEL (10-03-2012 06:35) Glucose 446 [...] complet 013 .8 ed 06:35 MCH RBC --2 26.5 pg 27-31.2 complet Qn 013 ed Auto 06:35 MEAN 07--2 30.6 31.8-35 complet CORPUSC 013 g/dl .4 ed ULAR 06:35 HGB CONC RDW RBC 10-03-2 15.3 % 11.5-17 complet Auto 013 .5 ed 06:35 Platele --2 499 142-424 complet t Bld 013 K/mm3 ed Ql 06:35 Manual MEAN 10-03-2 7.0 fl 7.4-10. complet PLATELE 013 4 ed T 06:35 VOLUME Granulo 10-03-2 90.1 % 37.0-80 complet cytes 013 .0 ed Fr Bld 06:35 Auto LYMPH % 07--2 7.0 % 10-50 complet 013 ed 06:35 Monocyt 07--2 2.5 % 1.7-9.3 complet es Fr 013 ed Bld 06:35 Auto Eosinop 07-26-2 0.3 % 0.1-12. complet hil Fr 013 0 ed Bld 06:35 Auto Basophi 07-26-2 0.1 % 0.1-2.0 complet ls Fr 013 ed Bld 06:35 Auto Granulo 07-26-2 11.4 1.3-8.0 complet cytes # 013 K/mm3 ed Bld 06:35 Auto Lymphoc 07-26-2 0.9 0.7-4.5 complet ytes Fr 013 K/mm3 ed Bld 06:35 Auto Monocyt 07-26-2 0.3 0.1-1.0 complet es # 013 K/mm3 ed Bld 06:35 Auto Eosinop 07-26-2 0.0 0.0-0.4 complet hil # 013 K/mm3 ed Bld 06:35 Auto Basophi 07-26-2 0.0 0-0.2 complet ls # 013 K/MM3 ed Bld 06:35 Auto GLYCOHEMOGLOBIN (A1c) (10-03-2012 06:35) HEMOGLO 07-26-2 8.0 % 0.0-7.0 complet BIN A1C 013 ed 06:35 PROTIME/INR (10-02-2012 04:30) PROTHRO -25-2 17.2 9.9-11. complet MBIN 013 SECONDS 6 ed TIME 04:30 INR Bld 10-02-2 1.60 0.9-1.1 complet 013 UNK ed 04:30 CBC with AUTO DIFF (10-02-2012 04:30) WBC # -25-2 13.5 4.8-10. complet Bld 013 K/MM3 8 ed Auto 04:30 RBC # 25-2 3.92 4.6-6.2 complet Bld 013 M/mm3 ed Auto 04:30 Hgb 10-02-2 10.4 14.1-18 complet Bld-mCn 013 g/dL .0 ed c 04:30 Hct Fr 2 33.8 % 42.0-52 complet Bld 013 .0 ed 04:30 MCV RBC 10-02-2 86.3 fl 82.2-97 complet 013 .8 ed 04:30 MCH RBC 2 26.6 pg 27-31.2 complet Qn 013 ed Auto 04:30 MEAN 10-02-2 30.8 31.8-35 complet CORPUSC 013 g/dl .4 ed ULAR 04:30 HGB CONC RDW RBC 10-02-2 15.0 % 11.5-17 complet Auto 013 .5 ed 04:30 Platele 10-02-2 387 142-424 complet t Bld 013 K/mm3 ed Ql 04:30 Manual MEAN 10-02-2 6.8 fl 7.4-10. complet PLATELE 013 4 ed T 04:30 VOLUME Granulo 10-02-2 88.1 % 37.0-80 complet cytes 013 .0 ed Fr Bld 04:30 Auto LYMPH % 25-2 7.7 % 10-50 complet 013 ed 04:30 Monocyt 25-2 3.7 % 1.7-9.3 complet es Fr 013 ed Bld 04:30 Auto Eosinop -25-2 0.5 % 0.1-12. complet hil Fr 013 0 ed Bld 04:30 Auto Basophi -25-2 0.1 % 0.1-2.0 complet ls Fr 013 ed Bld 04:30 Auto Granulo -25-2 11.9 1.3-8.0 complet cytes # 013 K/mm3 ed Bld 04:30 Auto Lymphoc 07-25-2 1.0 0.7-4.5 complet ytes Fr 013 K/mm3 ed Bld 04:30 Auto Monocyt 10-02-2 0.5 0.1-1.0 complet es # 013 K/mm3 [...] L TCO2 013 MMOL/L ed 08:59 Base 3.5 -2.4-+2 complet excess 013 MMOL/L .3 ed BldA-sC 08:59 nc ARTERIA 2 91.7 % 90-100 complet L O2 013 ed SAT 08:59 OXYGEN 10-01-2 4LPM complet 013 ed 08:59 Arteria 10-01-2 ACCEPTA complet l 013 BLE ed patency 08:59 Wrist a SOURCE 10-01-2 L complet 013 RADIAL ed 08:59 COMPREHENSIVE METABOLIC PANEL (10-01-2012 08:25) Glucose 151 74-106 complet 013 mg/dL ed Bld-mCn 08:25 c BUN 2 16 7-18 complet Bld-mCn 013 mg/dL ed c 08:25 Creat 2 1.1 0.8-1.3 complet SerPl-m 013 mg/dL ed Cnc 08:25 ESTIMAT 2 130 50-200 complet ED 013 ML/MIN ed CREATIN 08:25 INE CLEARAN CE GFR 07-24-2 69 Greater complet (ESTIMA 013 ML/MIN than ed KASSI) 08:25 60 Sodium 132 136-145 complet SerPl-s 013 mmoL/L ed Cnc 08:25 Potassi 4.3 3.5-5.1 complet um 013 mmoL/L ed SerPl-s 08:25 Cnc Chlorid 94 98-107 complet e 013 mmoL/L ed SerPl-s 08:25 Cnc CO2 28 21.0-32 complet SerPl-s 013 mmoL/L .0 ed Cnc 08:25 Calcium 2 8.2 8.5-10. complet 013 mg/dL 1 ed SerPl-m 08:25 Cnc Prot 7.4 6.4-8.2 complet SerPl-m 013 gm/dL ed Cnc 08:25 Albumin 2.3 3.4-5.0 complet 013 gm/dL ed SerPl-m 08:25 Cnc Globuli 5.1 1.3-3.2 complet n 013 gm/dL ed Ser-mCn 08:25 c Albumin 0.5 UNK 1.1-1.8 complet /Glob 013 ed SerPl-m 08:25 Rto Bilirub 0.3 0.2-1.0 complet 013 mg/dL ed SerPl-m 08:25 Cnc AST 17 U/L 15-37 complet SerPl-c 013 ed Cnc 08:25 ALT 47 U/L 30-65 complet SerPl-c 013 ed Cnc 08:25 ALP 2 161 U/L 50-136 complet SerPl-c 013 ed Cnc 08:25 D Dimer PPP (10-01-2012 08:25) D Dimer 2 1480 0-400 High complet PPP 013 ng/mL alert ed 08:25 CBC with AUTO DIFF (10-01-2012 08:25) WBC # 24-2 15.7 4.8-10. complet Bld 013 K/MM3 8 ed Auto 08:25 RBC # 10-01-2 4.14 4.6-6.2 complet Bld 013 M/mm3 ed Auto 08:25 Hgb 07-24-2 11.1 14.1-18 complet Bld-mCn 013 g/dL .0 ed c 08:25 Hct Fr 10-01-2 34.9 % 42.0-52 complet Bld 013 .0 ed 08:25 MCV RBC 10-01-2 84.5 fl 82.2-97 complet 013 .8 ed 08:25 MCH RBC 24-2 26.9 pg 27-31.2 complet Qn 013 ed Auto 08:25 MEAN 10-01-2 31.9 31.8-35 complet CORPUSC 013 g/dl .4 ed ULAR 08:25 HGB CONC RDW RBC 10-01-2 15.4 % 11.5-17 complet Auto 013 .5 ed 08:25 Platele 24-2 442 142-424 complet t Bld 013 K/mm3 ed Ql 08:25 Manual MEAN 10-01-2 6.8 fl 7.4-10. complet PLATELE 013 4 ed T 08:25 VOLUME Granulo 24-2 82.4 % 37.0-80 complet cytes 013 .0 ed Fr Bld 08:25 Auto LYMPH % 07-24-2 11.3 % 10-50 complet 013 ed 08:25 Monocyt 07-24-2 4.9 % 1.7-9.3 complet es Fr 013 ed Bld 08:25 Auto Eosinop -24-2 1.1 % 0.1-12. complet hil Fr 013 0 ed Bld 08:25 Auto Basophi 07-24-2 0.4 % 0.1-2.0 complet ls Fr 013 ed Bld 08:25 Auto Granulo 07-24-2 13.0 1.3-8.0 complet cytes # 013 K/mm3 ed Bld 08:25 Auto Lymphoc 07-24-2 1.8 0.7-4.5 complet ytes Fr 013 K/mm3 ed Bld 08:25 Auto Monocyt 07-24-2 0.8 0.1-1.0 complet es # 013 K/mm3 ed Bld 08:25 Auto Eosinop 07-24-2 0.2 0.0-0.4 complet hil # 013 K/mm3 ed Bld 08:25 Auto Basophi 07-24-2 0.1 0-0.2 complet ls # 013 K/MM3 ed Bld 08:25 Auto MYCOPLASMA IGM (RAPID) (10-01-2012 08:24) MYCOPLA 10-01-2 NON-LYNDSAY NONREAC complet SMA IGM 013 CTIVE TIVE ed 08:24 (RAPID) PROTIME/INR (08-24-2012 07:30) PROTHRO 24.1 9.9-11. complet MBIN 013 SECONDS 6 [...] 013 mmoL/L .0 ed Cnc 17:50 Calcium 06-11-2 8.6 8.5-10. complet 013 mg/dL 1 ed [...] complet Qn 013 ed Auto 17:50 MEAN -11-2 31.9 31.8-35 complet CORPUSC 013 g/dl .4 [...] ed Fr Bld 17:50 Auto LYMPH % 06-11-2 22.1 % 10-50 complet 013 ed 17:50 [...] 013 K/mm3 ed Bld 17:50 Auto Monocyt 08-19-2 0.5 0.1-1.0 complet es # 013 K/mm3 ed Bld 17:50 Auto Eosinop 0.4 0.0-0.4 complet hil # 013 K/mm3 ed Bld 17:50 Auto Basophi 0.1 0-0.2 complet ls # 013 K/MM3 ed Bld 17:50 Auto BASIC METABOLIC PANEL (06-19-2012 06:40) Glucose 163 74-106 complet 013 mg/dL ed Bld-mCn 06:40 c BUN 15 7-18 complet Bld-mCn 013 mg/dL ed c 06:40 Creat 1.0 0.8-1.3 complet SerPl-m 013 mg/dL ed Cnc 06:40 ESTIMAT 131 50-200 complet ED 013 ML/MIN ed CREATIN 06:40 INE CLEARAN CE GFR 77 Greater complet (ESTIMA 013 ML/MIN than ed KASSI) 06:40 60 Sodium 141 136-145 complet SerPl-s 013 mmoL/L ed Cnc 06:40 Potassi 4.2 3.5-5.1 complet um 013 mmoL/L ed SerPl-s 06:40 Cnc Chlorid 101 98-107 complet e 013 mmoL/L ed SerPl-s 06:40 Cnc CO2 36 21.0-32 complet SerPl-s 013 mmoL/L .0 ed Cnc 06:40 Calcium 8.3 8.5-10. complet 013 mg/dL 1 ed SerPl-m 06:40 Cnc CBC with AUTO DIFF (06-19-2012 06:40) WBC # 11-2 11.2 4.8-10. complet Bld 013 K/MM3 8 ed Auto 06:40 RBC # 06-19-2 5.22 4.6-6.2 complet Bld 013 M/mm3 ed Auto 06:40 Hgb 06-19- 14.3 14.1-18 complet Bld-mCn 013 g/dL .0 ed c 06:40 Hct Fr 04-11-2 45.7 % 42.0-52 complet Bld 013 .0 [...] 013 4 ed T 06:40 VOLUME Granulo 11-2 80.2 % 37.0-80 complet cytes 013 .0 ed Fr Bld 06:40 Auto LYMPH % 11-2 14.3 % 10-50 complet 013 ed 06:40 Monocyt -11-2 4.8 % 1.7-9.3 complet es Fr 013 ed Bld 06:40 Auto Eosinop 04-11-2 0.5 % 0.1-12. complet hil Fr 013 0 ed Bld 06:40 Auto Basophi 04-11-2 0.3 % 0.1-2.0 complet ls Fr 013 [...] Auto BASIC METABOLIC PANEL (06-16-2012 06:11) Glucose 08-2 127 74-106 complet 013 mg/dL ed Bld-mCn 06:11 c BUN 06-16-2 16 7-18 complet Bld-mCn 013 mg/dL ed [...] 013 mmoL/L .0 ed Cnc 06:11 Calcium 06-16-2 8.5 8.5-10. complet 013 mg/dL 1 ed SerPl-m 06:11 [facility] COMPREHENSIVE METABOLIC PANEL (06-13-2012 06:15) Glucose 05-2 134 74-106 complet 013 mg/dL ed Bld-mCn 06:15 c BUN 18 7-18 complet Bld-mCn 013 mg/dL ed c 06:15 Creat 06-13-2 0.9 0.8-1.3 complet SerPl-m 013 mg/dL ed [...] 013 gm/dL ed Ser-mCn 06:15 c Albumin 04-05-2 0.7 UNK 1.1-1.8 complet /Glob 013 ed SerPl-m 06:15 Rto Bilirub 04-05-2 0.3 0.2-1.0 complet 013 mg/dL ed SerPl-m 06:15 Cnc AST 04-05-2 33 U/L 15-37 complet SerPl-c 013 ed Cnc 06:15 ALT 04-05-2 50 U/L 30-65 complet SerPl-c 013 ed Cnc 06:15 ALP 04-05-2 114 U/L 50-136 complet SerPl-c 013 ed Cnc 06:15 CBC with AUTO DIFF (06-13-2012 06:15) WBC # 04-05-2 9.9 4.8-10. complet Bld 013 K/MM3 8 ed Auto 06:15 RBC # 04-05-2 4.77 4.6-6.2 complet Bld 013 M/mm3 ed Auto 06:15 Hgb 04-05-2 13.2 14.1-18 complet Bld-mCn 013 g/dL .0 ed c 06:15 Hct Fr 04-05-2 41.9 % 42.0-52 complet Bld 013 .0 ed 06:15 MCV RBC 04-05-2 87.9 fl 82.2-97 complet 013 .8 ed 06:15 MCH RBC 04-05-2 27.6 pg 27-31.2 complet Qn 013 ed Auto 06:15 MEAN 04-05-2 31.4 31.8-35 complet CORPUSC 013 g/dl .4 ed ULAR 06:15 HGB CONC RDW RBC 04-05-2 15.0 % 11.5-17 complet Auto 013 .5 ed 06:15 Platele 04-05-2 296 142-424 complet t Bld 013 K/mm3 ed Ql 06:15 Manual MEAN 04-05-2 6.8 fl 7.4-10. complet PLATELE 013 4 ed T 06:15 VOLUME Granulo 04-05-2 82.6 % 37.0-80 complet cytes 013 .0 [...] 013 K/mm3 ed Bld 06:15 Auto Lymphoc 04-05-2 1.2 0.7-4.5 complet ytes Fr 013 K/mm3 ed Bld 06:15 Auto Monocyt 04-05-2 0.5 0.1-1.0 complet es # 013 K/mm3 ed Bld 06:15 Auto Eosinop 04-05-2 0.0 0.0-0.4 complet hil # 013 K/mm3 ed Bld 06:15 Auto Basophi 04-05-2 0.0 0-0.2 complet ls # 013 K/MM3 ed Bld 06:15 Auto BASIC METABOLIC PANEL (06-12-2012 06:17) Glucose 06-12-2 161 74-106 complet 013 mg/dL ed Bld-mCn 06:17 c BUN 04-2 20 7-18 complet Bld-mCn 013 mg/dL ed c 06:17 Creat 06-12-2 0.9 0.8-1.3 complet SerPl-m 013 mg/dL ed Cnc 06:17 ESTIMAT 06-12-2 162 50-200 complet ED 013 ML/MIN ed CREATIN 06:17 INE CLEARAN CE GFR 06-12-2 87 Greater complet (ESTIMA 013 ML/MIN than [...] with AUTO DIFF (06-11-2012 06:05) WBC # --2 6.5 4.8-10. complet Bld 013 K/MM3 8 ed Auto 06:05 WBC 06-11-2 6.4 complet nRBC 013 K/mm3 ed cor # 06:05 Bld Auto RBC # 06-11-2 4.94 4.6-6.2 complet Bld 013 M/mm3 ed Auto 06:05 Hgb 13.3 14.1-18 complet Bld-mCn 013 g/dL .0 ed c 06:05 Hct Fr 42.4 % 42.0-52 complet Bld 013 .0 ed 06:05 MCV RBC 85.9 fl 82.2-97 complet 013 .8 ed 06:05 MCH RBC 27.0 pg 27-31.2 complet Qn 013 ed Auto 06:05 MEAN 31.4 31.8-35 complet CORPUSC 013 g/dl .4 ed ULAR 06:05 HGB CONC RDW RBC 06-11- 15.2 % 11.5-17 complet Auto 013 .5 [...] Auto ARTERIAL BLOOD GAS (06-10-2012 19:54) ARTERIA 04-02-2 7.42 7.35-7. complet L PH 013 MMOL/L 45 ed 19:54 ARTERIA 02-2 42.2 35.0-45 complet L PCO2 013 MMHG .0 ed 19:54 ARTERIA 02-2 60.8 80-100 complet L PO2 013 MMHG ed 19:54 ARTERIA -02-2 26.6 22.0-26 complet L HCO3 013 MMOL/L .0 ed 19:54 ARTERIA -02-2 27.9 23-27 complet L TCO2 013 MMOL/L ed 19:54 Base -02-2 2.0 -2.4-+2 complet excess 013 MMOL/L .3 ed BldA-sC 19:54 nc ARTERIA 02-2 92.4 % 90-100 complet L O2 013 ed SAT 19:54 OXYGEN 06-10-2 36%, complet 013 4LPM ed 19:54 VIA N/C Arteria 04-02-2 ACCEPTA complet l 013 BLE ed patency 19:54 Wrist a COMPREHENSIVE METABOLIC PANEL (06-10-2012 19:32) Glucose 105 74-106 complet 013 mg/dL ed Bld-mCn 19:32 c BUN 23 7-18 complet Bld-mCn 013 mg/dL ed c 19:32 Creat 1.4 0.8-1.3 complet SerPl-m 013 mg/dL ed Cnc 19:32 ESTIMAT 104 50-200 complet ED 013 ML/MIN ed CREATIN 19:32 INE CLEARAN CE GFR 52 Greater complet (ESTIMA 013 ML/MIN than ed KASSI) 19:32 60 Sodium 06-10-2 133 136-145 complet SerPl-s 013 mmoL/L ed Cnc 19:32 Potassi 3.4 3.5-5.1 complet um 013 mmoL/L ed SerPl-s 19:32 Cnc Chlorid 95 98-107 complet e 013 mmoL/L ed SerPl-s 19:32 Cnc CO2 27 21.0-32 complet SerPl-s 013 mmoL/L .0 ed Cnc 19:32 Calcium 8.3 8.5-10. complet 013 mg/dL 1 ed SerPl-m 19:32 Cnc Prot 7.4 6.4-8.2 complet SerPl-m 013 gm/dL ed Cnc 19:32 Albumin 3.2 3.4-5.0 complet 013 gm/dL ed SerPl-m 19:32 Cnc Globuli 2 4.2 1.3-3.2 complet n 013 gm/dL ed Ser-mCn 19:32 c Albumin 2 0.8 UNK 1.1-1.8 complet /Glob 013 ed SerPl-m 19:32 Rto Bilirub 0.5 0.2-1.0 complet 013 mg/dL ed SerPl-m 19:32 Cnc AST 06-10- 25 U/L 15-37 complet SerPl-c 013 ed [...] ed ULAR 19:32 HGB CONC RDW RBC 04-02-2 15.3 % 11.5-17 complet Auto 013 .5 ed 19:32 Platele 04-02-2 272 142-424 complet t Bld 013 K/mm3 ed Ql 19:32 Manual MEAN -02-2 6.8 fl 7.4-10. complet PLATELE 013 4 ed T 19:32 VOLUME Granulo 04-02-2 80.2 % 37.0-80 complet cytes 013 .0 [...] YOUR DISPENSIN 7 PHARMACY PHARMACY G FEE [employer] INHALATIO N RX; PER 30 DAYS ADMN SET [id number] YOUR YOUR SM VOL 7 PHARMACY PHARMACY NONFILTR [employer] PNEUMAT NEBULIZR DISPBL ALBUTEROL [id number] YOUR YOUR TO 2.5 7 PHARMACY PHARMACY [facility] IPRATROPI UM BROM TO 0.5 MG [...] YOUR SM VOL 6 PHARMACY PHARMACY NONFILTR [facility] PNEUMAT NEBULIZR DISPBL ALBUTEROL [id number] YOUR YOUR TO 2.5 6 PHARMACY PHARMACY [facility] IPRATROPI UM BROM TO 0.5 MG PHRM Q0513 YOUR YOUR DISPENSIN 6 PHARMACY PHARMACY G FEE [facility] INHALATIO N RX; PER 30 DAYS [...] YOUR SM VOL 6 PHARMACY PHARMACY NONFILTR [facility] PNEUMAT NEBULIZR DISPBL PHRM Q0513 YOUR YOUR DISPENSIN 6 PHARMACY PHARMACY G F[facility] INHALATIO N RX; PER 30 DAYS ALBUTEROL J7620 YOUR YOUR TO 2.5 6 PHARMACY PHARMACY MG & [facility] IPRATROPI UM BROM TO 0.5 MG PORTABLE E0443 DOREEN DOREEN O2 6 HOME HOME CONTENTS MEDICAL MEDICAL GASEOUS 1 EQUIPME EQUIPME MO SUPPLY=1 UNIT BLOOD [id number] [facility] INC INC AUTO&AUTO DIFRNTL WBC COMPREHEN 73575 [facility] SIVE 6 [facility] [place] [place] [facility] METABOLIC INC INC PANEL COLLECTIO 79693 [facility] MEZA N VENOUS 6 [facility] [place] [place] [facility] BLOOD INC INC VENIPUNCT URE LIPID 38298 [facility] MEZA PANEL 6 [facility] [place] [place] [facility] INC INC HEMOGLOBI 74986 [facility] ROACH [place] N 6 [facility] GLYCOSYLA INC KASSI A1C HOS BED E0260 DOREEN DOREEN SEMI-ELEC 6 [...] 1 EQUIPME EQUIPME MO SUPPLY=1 UNIT NON-INVAS 66966 [facility] ALL NÉSTOR 5 MEDICAL PHYSIOLOG IMAGING IC STUDY ASS EXTREMITY 3 LEVLS COMPREHEN 41484 [facility] SIVE 5 [facility] INC INC PANEL COLLECTIO 07779 [facility] N VENOUS 5 [facility] BLOOD INC INC VENIPUNCT URE PROSTATE G0103 [facility] CANCER 5 [facility] SCREENING INC INC ; PSA TEST PORTABLE E0443 DOREEN DOREEN O2 5 HOME HOME CONTENTS MEDICAL MEDICAL GASEOUS 1 EQUIPME EQUIPME MO SUPPLY=1 UNIT 25 97668 [facility] HYDROXY 5 [facility] INCLUD[facility] [place] [address] [facility] ME[facility] MAGNESIUM 5 [facility] INC INC LIPID 21413 [facility] PANEL 5 [facility] INC INC BLOOD 86099 [facility] COUNT 5 [facility] COMPLETE INC INC AUTO&AUTO DIFRNTL WBC PORTABLE E0443 DOREEN DOREEN O2 5 HOME HOME CONTENTS MEDICAL MEDICAL GASEOUS 1 EQUIPME EQUIPME MO SUPPLY=1 UNIT PORTABLE E0443 DOREEN DOREEN O2 5 HOME HOME CONTENTS MEDICAL MEDICAL GASEOUS 1 EQUIPME EQUIPME MO SUPPLY=1 UNIT BASIC 77079 COMBINED COMBINED METABOLIC 5 PHYSICIAN PHYSICIAN PANEL [...] 1 EQUIPME EQUIPME MO SUPPLY=1 UNIT LIPID 31798 [facility]ZA PANEL 4 [facility] [place] [place] [facility] HEMOGLOBI 21691 [facility] MEZA N 4 [facility] [place] [place] [facility] INC INC KASSI A1C BASIC 73090 [facility] MEZA METABOLIC 4 [facility] [place] [place] [facility] PANEL INC INC CALCIUM TOTAL COLLECTIO 49004 [facility] MEZA N VENOUS 4 [facility] BLOOD INC INC VENIPUNCT URE PORTABLE E0443 DOREEN DOREEN O2 4 HOME HOME CONTENTS MEDICAL MEDICAL GASEOUS 1 EQUIPME EQUIPME MO SUPPLY=1 UNIT FOR DIAB A5513 [facility] ONLY MX 4 PHARMACY PHARMACY DNSITY INSRT CSTM MOLD CSTM EA DIAB ONLY A5500 [facility] FIT CSTM 4 PHARMACY PHARMACY PREP&SPL SHOE MX DNSITY INSRT BLD GLU A4253 [facility] TEST/REAG 4 PHARMACY PHARMACY T STRIPS HOME BLD GLU Encounters Encounter Start End Date Code Location Per[facility] Type [facility] 6 6 [facility] - 5 5 [facility] 4 4 [facility] IMP Sus[place] Vivar ([place]) 3 09:04 3 13:35 [facility] Inpatient JAZIEL Vivar ([place]) 3 16:06 3 10:40 [facility] Inpatient JAZIEL Bowen MD ([place]) 3 15:03 3 12:00 [facility] Inpatient JAZIEL Bowen MD ([place]) 3 19:49 3 15:03 [facility]
--- OUTSIDE RECORDS SUMMARY | 2016-07-07 21:22 | External Medical Summary Rpt ---
Author Author , Organization [employer] Address Unknown Phone Unavailable Care Team Providers Care Line Installation Supervisor Name Role Phone DANIELSON ALL, DANIELSON ALL Unavailable Unavailable [facility], Unavailable Unavailable [facility] Unavailable [facility]available [facility] Un[place]available [place], [facility] [place] [facility] Unavailable Unavailable [place], [facility] KIAN AUGUST, Unavailable Unavailable July AUGUST [facility] Un[facility] Unavailable [facility], [facility] Unavailable Unavailable IMAGING ASS, [facility] MARLEY HAYNES, MARLEY HAYNES [...] 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 [id number] SPONDYLOSIS 11-13-2015 [facility] W/O HOME 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 M545 LOW BACK 11-13-2015 [facility] PAIN HOME MEDICAL EQUIPME E119 TYPE 2 10-26-2015 CLINIC DIABETES PHARMACY MELLITUS WITHOUT COMPLICATIO NS I2510 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 ANGINA PECTORIS R030 ELEVATED 07-15-2015 [facility] BLOOD-PRESS [facility] URE READING INC WITHOUT DX HTN 496 CHRONIC 11-25-2014 [facility] AIRWAY HOME OBSTRUCTION MEDICAL NEC EQUIPME 4439 UNSPECIFIED 09-08-2014 [facility] DISEASE 2724 OTHER AND 08-25-2014 [facility] UNSPECIFIED [facility] INC HYPERLIPIDE BRY 62059 OSTEOARTHRO 08-25-2014 [facility] S UNSPEC [facility] WHETHER INC GEN/LOC UNSPEC SITE 7962 ELEVATED BP 08-25-2014 [facility] READING [facility] WITHOUT DX INC HYPERTENSIO N V7644 SPECIAL 08-25-2014 [facility] SCREENING [facility] MALIGNANT INC NEOPLASM OF PROSTATE V5861 LONG-TERM 05-25-2014 COMBINED (CURRENT) PHYSICIANS USE OF [place] ANTICOAGULA NTS 26984 DIAB W/O 04-03-2014 CLINIC COMP TYPE PHARMACY II/UNS NOT STATED UNCNTRL 4019 UNSPECIFIED 01-30-2014 [facility] ESSENTIAL [facility] HYPERTENSIO INC N [id number] Constipatio [facility] 272.4 Hyperlipide [facility] 276.1 Hyponatremi [facility] 276.8 Hypokalemia [facility] 401.1 Benign [facility] n [id number] Diabetes Peck mellitus [address] 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 [facility] extremity 482.1 Pneumonia Peck due to [facility] 486 [facility] [id number] Active [facility] 593.9 Renal Peck impairment [facility] 780.57 Sleep apnea [facility] 799.02 Hypoxia [facility] [id number] Chronic [facility] E11.9 TYPE 2 DIABETES MELLITUS WITHOUT COMPLICATIO NS E78.4 OTHER HYPERLIPIDE [facility] J20.9 ACUTE BRONCHITIS, UNSPECIFIED J44.1 CHRONIC OBSTRUCTIVE [...] 00 07 1 No XA 45 -2 CT 62 7- Lo O 02 20 ng 20 06 13 er 3 MG Ac ti TA ve BL ET CT 00 07 1 No ED 05 -2 [...] 00 07 1 No XA 45 -2 CT 62 5- Lo O 02 20 ng [...] RO 07 -2 SE 90 4- Lo MA 07 20 ng DE 22 13 er [...] 51 07 4 No TO 07 -2 CT 90 4- Lo OL 25 20 ng OL 52 13 er 0 TA Ac RT ti RA ve TE 25 MG TA B PA 51 07 4 No NT 07 -2 OP 90 4- Lo RA 05 20 ng ZO 12 13 er LE 0 Ac SO ti D ve DR [address] 51 07 4 No AV 07 -2 [...] RO 07 -1 SE 90 2- Lo MA 07 20 ng DE 22 13 er [...] 00 06 4 No XA 45 -1 CT 62 2- Lo O 02 20 ng [...] ti 10 ve MG TA BL ET CT 00 06 5 No ED 05 -1 [...] 51 06 5 No TO 07 -1 CT 90 1- Lo OL 25 20 ng [...] 0, 00 0 UN IT S/ 5M CT 00 04 3 No ED 05 -1 [...] 00 04 4 No XA 45 -0 CT 62 9- Lo O 02 20 ng 20 06 13 er 3 MG Ac ti TA ve BL ET FU 51 04 4 No RO 07 -0 SE 90 9- Lo MA 07 20 ng DE 22 13 er [...] 51 04 5 No TO 07 -0 CT 90 8- Lo OL 25 20 ng [...] ti L ve [address] 00 04 5 No OT 00 -0 [...] 00 04 5 No XA 45 -0 CT 62 3- Lo O 02 20 ng [...] 51 04 6 No TO 07 -0 CT 90 2- Lo OL 25 20 ng [...] nces retati t Range on Glucose BldC Glucomtr-mCmt (10-05-2012 11:32) Glucose 186 70-110 complet BldC 013 mg/dl ed Glucomt 11:32 r-mCnc Glucose dC Glucomtr[facility] (10-05-2012 06:21) Glucose 204 70-110 complet BldC [...] K/MM3 ed Bld 06:20 Auto Glucose dC Glucom-[facility] (10-03-2012 22:06) Glucose 261 70-110 complet BldC 013 mg/dl ed Glucomt 22:06 r-[facility] Glucose BldC Glucomtr-[facility] (10-03-2012 16:43) Glucose 2 182 70-110 complet BldC 013 mg/dl ed [facility]t 16:43 [facility] (10-03-2012 11:27) Glucose 254 70-110 complet BldC 013 mg/dl ed Glucomt 11:27 [facility] BASIC METABOLIC PANEL (10-03-2012 06:35) Glucose 446 [...] complet 013 mg/dL 1 ed SerPl-m 06:11 [facility] COMPREHENSIVE METABOLIC PANEL (06-13-2012 06:15) Glucose 05-2 [...] YOUR DISPENSIN 7 PHARMACY PHARMACY G FEE [employer] INHALATIO N RX; PER 30 DAYS ADMN SET A7003 YOUR YOUR SM VOL 7 PHARMACY PHARMACY NONFILTR [employer] PNEUMAT NEBULIZR DISPBL ALBUTEROL J7620 YOUR YOUR TO 2.5 7 PHARMACY PHARMACY [employer] IPRATROPI UM BROM TO 0.5 MG [...] YOUR SM VOL 6 PHARMACY PHARMACY NONFILTR [employer] PNEUMAT NEBULIZR DISPBL ALBUTEROL J7620 YOUR YOUR TO 2.5 6 PHARMACY PHARMACY [employer] IPRATROPI UM BROM TO 0.5 MG PHRM Q0513 YOUR YOUR DISPENSIN 6 PHARMACY PHARMACY G FEE [employer] INHALATIO N RX; PER 30 DAYS [...] YOUR SM VOL 6 PHARMACY PHARMACY NONFILTR [employer] PNEUMAT NEBULIZR DISPBL PHRM Q0513 YOUR YOUR DISPENSIN 6 PHARMACY PHARMACY G FEE [employer] INHALATIO N RX; PER 30 DAYS ALBUTEROL J7620 YOUR YOUR TO 2.5 6 PHARMACY PHARMACY [employer] IPRATROPI UM BROM TO 0.5 MG PORTABLE E0443 DOREEN DOREEN O2 6 HOME HOME CONTENTS MEDICAL MEDICAL GASEOUS 1 EQUIPME EQUIPME MO SUPPLY=1 UNIT BLOOD 60137 [facility] COUNT 6 [facility] COMPLETE INC INC AUTO&AUTO DIFRNTL WBC COMPREHEN 06303 [facility] SIVE 6 [facility] METABOLIC INC INC PANEL COLLECTIO 92277 [facility] MEZA N VENOUS 6 [facility] BLOOD INC INC VENIPUNCT URE LIPID 32139 [facility] MEZA PANEL 6 [facility] INC INC HEMOGLOBI 88916 [facility] ROACH DALLAS N 6 MEM HOSP [...] 1 EQUIPME EQUIPME MO SUPPLY=1 UNIT NON-INVAS 88880 [facility] ALL NÉSTOR 5 MEDICAL PHYSIOLOG IMAGING IC STUDY ASS EXTREMITY 3 LEVLS COMPREHEN 62791 [facility] SIVE 5 [facility] METABOLIC INC INC PANEL COLLECTIO 32402 [facility] MEZA N VENOUS 5 [facility] BLOOD INC INC VENIPUNCT URE PROSTATE G0103 [facility] MEZA CANCER 5 MEM [facility] SCREENING INC INC ; PSA TEST PORTABLE E0443 DOREEN DOREEN O2 5 HOME HOME CONTENTS MEDICAL MEDICAL GASEOUS 1 EQUIPME EQUIPME MO SUPPLY=1 UNIT 25 92575 [facility]ZA HYDROXY 5 [facility] INCLUDES [place] [address] [facility] MAGNESIUM 5 [facility] INC INC LIPID 27828 [facility] PANEL 5 [facility] INC INC BLOOD 41947 [facility] MEZA COUNT 5 [facility] COMPLETE INC INC AUTO&AUTO DIFRNTL WBC PORTABLE E0443 DOREEN DOREEN O2 5 HOME HOME CONTENTS MEDICAL MEDICAL GASEOUS 1 EQUIPME EQUIPME MO SUPPLY=1 UNIT PORTABLE E0443 DOREEN DOREEN O2 5 HOME HOME CONTENTS MEDICAL MEDICAL GASEOUS 1 EQUIPME EQUIPME MO SUPPLY=1 UNIT BASIC 30544 COMBINED COMBINED METABOLIC 5 PHYSICIAN PHYSICIAN PANEL [...] 1 EQUIPME EQUIPME MO SUPPLY=1 UNIT LIPID 45072 [facility] PANEL 4 [facility] INC HEMOGLOBI 38627 [facility] MEZA N 4 [facility] GLYCOSYLA INC INC KASSI A1C BASIC 22029 [facility] METABOLIC 4 [facility] PANEL INC INC CALCIUM TOTAL COLLECTIO 57754 [facility] MEZA N VENOUS 4 [facility] H[facility] BLOOD INC INC VENIPUNCT URE PORTABLE E0443 [...] End Date Code Location Performer Type Date [facility] - OTHER 6 6 [facility] - 5 5 [facility] 5 [facility] - 4 4 [facility] Inpatient IMP Susana Vivar ([place]) 3 09:04 3 13:35 [facility] Inpatient JAZIEL Vivar ([place]) 3 16:06 3 10:40 [facility] Inpatient JAZIEL Bowen MD ([place]) 3 15:03 3 12:00 [facility] [place] JAZIEL Bowen MD ([place]) 3 19:49 3 15:03 [facility]
--- OUTSIDE RECORDS SUMMARY | 2016-07-07 21:25 | External Medical Summary Rpt ---
Demographics Preferred Language Spanish Marital Status Unknown Mu-Ism Affiliation Unknown Race Unknown Ethnic Group Unknown Author Author , Organization [employer] Address Unknown Phone Unavailable Purpose Continuity of Care Document - through 2016 Immunization No patient found.
--- OUTSIDE RECORDS SUMMARY | 2016-07-07 21:25 | External Medical Summary Rpt ---
Author Author , Organization [employer] Address Unknown Phone Unavailable Care Team Providers Care Coil Winder Name Role Phone DANIELSON ALL, DANIELSON ALL Unavailable Unavailable [facility], Unavailable Unavailable [facility] Unavailable Unavailable [facility] Unavailable Unavailable [place], [facility] [place] [facility]available Unavailable [place], [facility] [place] [facility] Un[facility] Unavailable INC, [facility] Unavailable Unavailable IMAGING ASS, [facility] ROACH DALLAS, ROACH DALLAS Unavailable Unavailable [facility] Unavailable Unavailable EQUIPME, [facility] Unavailable Unavailable EQUIPME, [facility], Unavailable Unavailable [facility] Purpose Continuity of Care Document - 01-15-2014 through 2016 Problems Code Diagnosis DOS Provider Status J449 CHRONIC 04-25-2016 [facility] 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 [id number] SPONDYLOSIS 11-13-2015 [facility] W/O HOME 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 M545 LOW BACK 11-13-2015 [facility] PAIN HOME MEDICAL EQUIPME E119 TYPE 2 10-26-2015 CLINIC DIABETES PHARMACY MELLITUS WITHOUT COMPLICATIO NS I2510 ASHD KALISPEL 07-15-2015 [facility] CORONARY [facility] ARTERY W/O INC ANGINA PECTORIS R030 ELEVATED 07-15-2015 [facility] BLOOD-PRESS [facility] URE READING INC WITHOUT DX HTN 496 CHRONIC 11-25-2014 [facility] AIRWAY HOME OBSTRUCTION MEDICAL NEC EQUIPME 4439 UNSPECIFIED 09-08-2014 [place] [facility] DISEASE 2724 OTHER AND 08-25-2014 [facility] UNSPECIFIED [facility] INC HYPERLIPIDE BRY 56888 OSTEOARTHRO 08-25-2014 [facility] S UNSPEC [facility] WHETHER INC GEN/LOC UNSPEC SITE 7962 ELEVATED BP 08-25-2014 [facility] READING [facility] WITHOUT DX INC HYPERTENSIO N V7644 SPECIAL 08-25-2014 [facility] SCREENING [facility] MALIGNANT INC NEOPLASM OF PROSTATE V5861 LONG-TERM 05-25-2014 [facility]BIN[facility] (CURRENT) PHYSICIANS USE OF [place] ANTICOAGULA NTS 51072 DIAB W/O 04-03-2014 CLINIC COMP TYPE PHARMACY II/UNS NOT STATED [facility]1983NTRL 4019 UNSPECIFIED 01-30-2014 [facility] Procedures Procedure DOS Code Location Performer Comment O2 CONC 1 E1390 D[facility] LOGAN DEL PORT 7 HOME HOME 85%/>02 MEDICAL MEDICAL CONC AT EQUIPME EQUIPME PRSC FLW RATE PRTBLE E0431 [facility] LOGAN GASEOUS 7 HOME HOME O2 SYS MEDICAL MEDICAL RENT; EQUIPME EQUIPME FLWMTR HUMIDFR&M ASK ADMN SET A7003 YOUR YOUR SM VOL 7 PHARMACY PHARMACY [employer] PNEUMAT NEBULIZR DISPBL PHRM Q0513 YOUR YOUR DISPENSIN 7 PHARMACY PHARMACY [employer] INHALATIO N RX; PER 30 DAYS ALBUTEROL J7620 YOUR YOUR TO 2.5 7 PHARMACY PHARMACY [employer] IPRATROPI UM BROM TO 0.5 MG O2 CONC 1 E1390 D[facility] LOGAN DEL PORT 7 HOME HOME 85%/>02 MEDICAL MEDICAL CONC AT EQUIPME EQUIPME PRSC FLW RATE PRTBLE E0431 D[facility]EN DUMONTRELL GASEOUS 7 HOME HOME O2 SYS MEDICAL MEDICAL RENT; EQUIPME EQUIPME FLWMTR HUMIDFR&M ASK PRTBLE E0431 DOREEN DUMONTRELL GASEOUS 6 HOME HOME O2 SYS MEDICAL MEDICAL RENT; EQUIPME EQUIPME FLWMTR HUMIDFR&M ASK O2 CONC 1 E1390 DOREEN LOGAN DEL PORT 6 HOME HOME 85%/>02 MEDICAL MEDICAL CONC AT EQUIPME EQUIPME PRSC FLW RATE HOS BED E0260 D[facility] LOGAN SEMI-ELEC 6 HOME HOME W/ANY MEDICAL MEDICAL TYPE SIDE EQUIPME EQUIPME RAIL W/MATTRSS ALBUTEROL J7620 YOUR YOUR TO 2.5 6 PHARMACY PHARMACY [employer] IPRATROPI UM BROM TO 0.5 MG ADMN SET A7003 YOUR YOUR SM VOL 6 PHARMACY PHARMACY [employer] PNEUMAT NEBULIZR DISPBL PHRM Q0513 YOUR YOUR DISPENSIN 6 PHARMACY PHARMACY [employer] INHALATIO N RX; PER 30 DAYS BLD GLU A4253 CLINIC CLINIC TEST/REAG 6 PHARMACY PHARMACY T STRIPS HOME BLD GLU MON-50 O2 CONC 1 E1390 DOREEN LOGAN DEL PORT 6 HOME HOME 85%/>02 MEDICAL MEDICAL CONC AT EQUIPME EQUIPME PRSC FLW RATE PRTBLE E0431 DOREEN DOREEN GASEOUS 6 HOME HOME O2 SYS MEDICAL MEDICAL RENT; EQUIPME EQUIPME FLWMTR HUMIDFR&M ASK HOS BED E0260 DOREEN DOREEN SEMI-ELEC 6 HOME HOME W/ANY MEDICAL MEDICAL TYPE SIDE EQUIPME EQUIPME RAIL W/MATTRSS O2 CONC 1 E1390 DOREEN LOGAN DEL [...] TO 2.5 6 PHARMACY PHARMACY [email or web address] IPRATROPI UM BROM TO 0.5 MG PHRM Q0513 YOUR YOUR DISPENSIN 6 PHARMACY PHARMACY G FEE [employer] INHALATIO N RX; PER 30 DAYS ADMN SET A7003 YOUR YOUR SM VOL 6 PHARMACY PHARMACY NONFILTR [email or web address] PNEUMAT NEBULIZR DISPBL PORTABLE E0443 DOREEN LOGAN O2 6 HOME HOME CONTENTS MEDICAL MEDICAL GASEOUS 1 EQUIPME EQUIPME MO SUPPLY=1 UNIT HEMOGLOBI 15698 [facility] HAYNES N 6 MEM HOSP GLYCOSYLA INC KASSI A1C LIPID 56001 [facility] PANEL 6 [facility] H[facility] INC INC COMPREHEN 19557 [facility] SIVE 6 [facility] H[facility] METABOLIC INC INC PANEL COLLECTIO 20821 [facility] MEZA N VENOUS 6 MEM HOS[facility] BLOOD INC INC VENIPUNCT URE BLOOD 93365 [facility] COUNT 6 [facility] H[facility] COMPLETE INC INC AUTO&AUTO DIFRNTL WBC HOS BED E0260 DOREEN DOREEN SEMI-ELEC 6 HOME HOME W/ANY MEDICAL MEDICAL TYPE SIDE EQUIPME EQUIPME RAIL W/MATTRSS PORTABLE E0443 DOREEN DOREEN O2 6 HOME HOME CONTENTS MEDICAL MEDICAL GASEOUS 1 EQUIPME EQUIPME MO SUPPLY=1 UNIT HOS BED E0260 DOREEN DOREEN SEMI-ELEC 6 HOME HOME W/ANY MEDICAL MEDICAL TYPE SIDE EQUIPME EQUIPME RAIL W/MATTRSS PORTABLE E0443 ODREEN DOREEN O2 6 HOME HOME CONTENTS MEDICAL [...] PHARMACY PHARMACY PREP&SPL SHOE MX DNSITY INSRT PORTABLE E0443 DOREEN DOREEN O2 5 HOME [...] 1 EQUIPME EQUIPME MO SUPPLY=1 UNIT NON-INVAS 08654 [place] [facility] NÉSTOR 5 MEDICAL PHYSIOLOG IMAGING IC STUDY ASS EXTREMITY 3 LEVLS COMPREHEN 50674 [facility]NAS[facility]AH [facility] SIVE 5 [facility] H[facility] METABOLIC INC INC PANEL LIPID 06012 [facility]ZA PANEL 5 [facility] INC INC COLLECTIO 65146 [facility] MEZA N VENOUS 5 [facility] H[facility] BLOOD INC INC VENIPUNCT URE PORTABLE E0443 DOREEN DOREEN O2 5 HOME HOME CONTENTS MEDICAL MEDICAL GASEOUS 1 EQUIPME EQUIPME MO SUPPLY=1 UNIT 25 19440 [facility]ZA HYDROXY 5 [facility] H[facility] INCLUDES [place] [address] [facility]ZA MAGNESIUM 5 [facility] H[facility] INC INC PROSTATE G0103 [facility] CANCER 5 MEM H[facility] SCREENING INC INC ; PSA TEST BLOOD 68007 [facility] MEZA COUNT 5 MEM HOSP MEM [...] 1 EQUIPME EQUIPME MO SUPPLY=1 UNIT BASIC 48575 COMBINED COMBINED METABOLIC 5 PHYSICIAN PHYSICIAN PANEL [...] 1 EQUIPME EQUIPME MO SUPPLY=1 UNIT LIPID 30472 [facility] PANEL 4 [facility] INC INC COLLECTIO 25656 [facility] MEZA N VENOUS 4 MEM HOS[facility] BLOOD INC INC VENIPUNCT URE HEMOGLOBI 04671 SUSANASARAH MEZA N 4 [facility] H[facility] GLYCOSYLA INC INC KASSI A1C BASIC 48287 [facility] METABOLIC 4 [facility] PANEL INC INC CALCIUM TOTAL PORTABLE [...] PHARMACY PHARMACY T STRIPS HOME BLD GLU SAT-50 Encounters Encounter Start End Date Code Location Performer Type Date [facility] S[facility] - OTHER 6 6 [facility] S[facility] - 5 5 [facility] S[facility] - 5 5 [facility] S[facility] - 4 4 [facility]
--- OUTSIDE RECORDS SUMMARY | 2016-07-07 21:25 | External Medical Summary Rpt ---
Author Author , Organization [employer] Address Unknown Phone Unavailable Care Team Providers Care Landing Worker Name Role Phone DANIELSON ALL, DANIELSON ALL Unavailable Unavailable [facility], Unavailable Unavailable CL[facility]IC PHARM[facility] Un[facility] Unavailable [facility] Unavailable Unavailable [place], [facility] [place] [facility] Un[place] Unavailable [place] [place] [facility] Un[facility] Un[facility] INC, [facility] Unavailable Unavailable IM[facility]ING [facility], [facility] ROACH DALLAS, ROACH DALLAS Unavailable Unavailable [facility] Unavailable Unavailable EQUIPME, [facility] Unavailable Unavailable EQUIPME, [facility], Unavailable Unavailable [facility] Purpose Continuity of Care Document - 01-15-2014 through 2016 Problems Code Diagnosis DOS Provider Status J449 CHRONIC 04-25-2016 [facility] 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 [id number] SPONDYLOSIS 11-13-2015 [facility] W/O HOME 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 M545 LOW BACK 11-13-2015 [facility] PAIN HOME MEDICAL EQUIPME E119 TYPE 2 10-26-2015 CLINIC DIABETES PHARMACY MELLITUS WITHOUT COMPLICATIO NS I2510 ASHD [place] 07-15-2015 [facility] CORONARY [facility] ARTERY W/O INC ANGINA PECTORIS R030 ELEVATED 07-15-2015 [facility] BLOOD-PRESS [facility] URE READING INC WITHOUT DX HTN 496 CHRONIC 11-25-2014 [facility] AIRWAY HOME OBSTRUCTION MEDICAL NEC EQUIPME 4439 UNSPECIFIED 09-08-2014 [facility] [facility] DISEASE 2724 OTHER AND 08-25-2014 [facility] UNSPECIFIED [facility] INC HYPERLIPIDE BRY 79709 OSTEOARTHRO 08-25-2014 [facility] S UNSPEC [facility] WHETHER INC GEN/LOC UNSPEC SITE 7962 ELEVATED BP 08-25-2014 [facility] READING [facility] WITHOUT DX INC HYPERTENSIO N V7644 SPECIAL 08-25-2014 [facility] SCREENING [facility] MALIGNANT INC NEOPLASM OF PROSTATE V5861 LONG-TERM 05-25-2014 COMBINED (CURRENT) PHYSICIANS USE OF [place] ANTICOAGULA NTS 02071 DIAB W/O 04-03-2014 CLINIC COMP TYPE PHARMACY II/UNS NOT STATED [facility] UNSPECIFIED 01-30-2014 [facility] N Procedures Procedure DOS Code Location Performer Comment O2 CONC 1 E1390 DOREEN LOGAN DEL PORT 7 HOME HOME 85%/>02 MEDICAL MEDICAL CONC AT EQUIPME EQUIPME PRSC FLW RATE PRTBLE E0431 DOREEN LOGAN GASEOUS 7 HOME HOME O2 SYS MEDICAL MEDICAL RENT; EQUIPME EQUIPME FLWMTR HUMIDFR&M ASK ADMN SET A7003 YOUR YOUR SM VOL 7 PHARMACY PHARMACY [employer] PNEUMAT NEBULIZR DISPBL PHRM Q0513 YOUR YOUR DISPENSIN 7 PHARMACY PHARMACY [employer] INHALATIO N RX; PER 30 DAYS ALBUTEROL J7620 YOUR YOUR TO 2.5 7 PHARMACY PHARMACY [employer] IPRATROPI UM BROM TO 0.5 MG [...] YOUR YOUR TO 2.5 6 PHARMACY PHARMACY [email or web address] IPRATROPI UM BROM TO 0.5 MG ADMN SET A7003 YOUR YOUR SM VOL 6 PHARMACY PHARMACY [employer] PNEUMAT NEBULIZR DISPBL PHRM Q0513 YOUR YOUR DISPENSIN 6 PHARMACY PHARMACY [employer] INHALATIO N RX; PER 30 DAYS BLD GLU A4253 CLINIC CLINIC TEST/REAG 6 PHARMACY PHARMACY T STRIPS HOME BLD GLU MON-50 O2 CONC 1 E1390 DOREEN LOGAN DEL PORT 6 HOME HOME 85%/>02 MEDICAL MEDICAL CONC AT EQUIPME EQUIPME PRSC FLW RATE PRTBLE E0431 ODREEN DOREEN GASEOUS 6 HOME HOME O2 SYS [...] TO 2.5 6 PHARMACY PHARMACY [employer] IPRATROPI UM BROM TO 0.5 MG PHRM Q0513 YOUR YOUR DISPENSIN 6 PHARMACY PHARMACY G FEE [employer] INHALATIO N RX; PER 30 DAYS ADMN SET A7003 YOUR YOUR SM VOL 6 PHARMACY PHARMACY NONFILTR [employer] PNEUMAT NEBULIZR DISPBL PORTABLE E0443 DOREEN LOGAN O2 6 HOME HOME CONTENTS MEDICAL MEDICAL GASEOUS 1 EQUIPME EQUIPME MO SUPPLY=1 UNIT HEMOGLOBI 34390 [facility] HAYNES N 6 MEM HOSP GLYCOSYLA INC KASSI A1C LIPID 70741 [facility] MEZA PANEL 6 MEM HOS[facility] INC INC COMPREHEN 76493 [facility] MEZA SIVE 6 MEM HOS[facility] METABOLIC INC INC PANEL COLLECTIO 91433 [facility] MEZA N VENOUS 6 MEM HOS[facility] BLOOD INC INC VENIPUNCT URE BLOOD 56636 [facility] MEZA COUNT 6 MEM HOSP MEM [...] EQUIPME EQUIPME MO SUPPLY=1 UNIT PORTABLE E0443 DORENE DOREEN O2 5 HOME HOME CONTENTS MEDICAL MEDICAL GASEOUS 1 EQUIPME EQUIPME MO SUPPLY=1 UNIT NON-INVAS 78503 [place] DANIEL[facility] ALL NÉSTOR 5 MEDICAL PHYSIOLOG IMAGING IC STUDY ASS EXTREMITY 3 LEVLS COMPREHEN 52537 SUSANASARAH MEZA SIVE 5 [facility] H[facility] METABOLIC INC INC PANEL LIPID 87475 [facility] MEZA PANEL 5 [facility] INC INC COLLECTIO 17841 [facility] MEZA N VENOUS 5 MEM HOS[facility] BLOOD INC INC VENIPUNCT URE PORTABLE E0443 DOREEN DOREEN O2 5 HOME HOME CONTENTS MEDICAL MEDICAL GASEOUS 1 EQUIPME EQUIPME MO SUPPLY=1 UNIT 25 44303 S[facility] MEZA HYDROXY 5 MEM HOSP [facility] INCLUDES [place] [address] [facility] MEZA MAGNESIUM 5 [facility] H[facility] INC INC PROSTATE G0103 [facility] MEZA CANCER 5 MEM H[facility] SCREENING INC INC ; PSA TEST BLOOD 56446 [facility] MEZA COUNT 5 MEM HOSP MEM [...] 1 EQUIPME EQUIPME MO SUPPLY=1 UNIT BASIC 19550 COMBINED COMBINED METABOLIC 5 PHYSICIAN PHYSICIAN PANEL [...] 1 EQUIPME EQUIPME MO SUPPLY=1 UNIT LIPID 95160 [facility]USANA PANEL 4 [facility] H[facility] INC INC COLLECTIO 86337 [facility] MEZA N VENOUS 4 MEM H[facility] BLOOD INC INC VENIPUNCT URE HEMOGLOBI 54528 SUSANASARAH MEZA N 4 MEM H[facility]P [facility] GLYCOSYLA INC INC KASSI A1C BASIC 37822 S[facility]NA SUSANA METABOLIC 4 [facility] PANEL INC INC CALCIUM TOTAL PORTABLE [...] End Date Code Location Performer Type Date [facility] SUSANA - OTHER 6 6 [facility] SUSANA - 5 5 [facility] S[facility] - 5 5 [facility] - 4 4 [facility]
--- OUTSIDE RECORDS SUMMARY | 2016-07-07 21:25 | External Medical Summary Rpt ---
Demographics Preferred Language Lao Marital Status Unknown Pentecostal Affiliation Unknown Race Unknown Ethnic Group Unknown Author Author , Organization [employer] Address Unknown Phone Unavailable Purpose Continuity of Care Document - through 2016 Immunization No patient found.
--- OUTSIDE RECORDS SUMMARY | 2016-07-07 21:48 | External Medical Summary Rpt ---
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 Name Role Phone DANIELSON ALL, DANIELSON ALL Unavailable Unavailable [facility], Unavailable Unavailable [facility] Unavailable Unavailable [facility] Unavailable Unavailable [place], [facility] [place] [facility] Unavailable Unavailable [place], [facility] KIAN AUGUST, Unavailable Unavailable July AUGUST [facility] Unavailable Unavailable INC, [facility] Unavailable Unavailable IMAGING [facility], [facility] MARLEY HAYNES, MARLEY HAYNES [...] 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 [id number] SPONDYLOSIS 11-13-2015 DOREEN W/O HOME 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 M545 LOW BACK 11-13-2015 D[facility] PAIN HOME MEDICAL EQUIPME E119 TYPE 2 10-26-2015 CLINIC DIABETES PHARMACY MELLITUS WITHOUT COMPLICATIO NS I2510 ASHD [place] 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[facility] CORONARY [facility]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/O INC ANGINA PECTORIS R030 ELEVATED 07-15-2015 [facility] BLOOD-PRESS [facility] URE READING INC WITHOUT DX HTN 496 CHRONIC 11-25-2014 [facility] AIRWAY HOME OBSTRUCTION MEDICAL NEC EQUIPME 4439 UNSPECIFIED 09-08-2014 [facility] DISEASE 2724 OTHER AND 08-25-2014 [facility] UNSPECIFIED [facility] INC HYPERLIPIDE BRY 93190 OSTEOARTHRO 08-25-2014 [facility] S UNSPEC [facility] WHETHER INC GEN/LOC UNSPEC SITE 7962 ELEVATED BP 08-25-2014 PRATT READING [facility] WITHOUT DX INC HYPERTENSIO N V7644 SPECIAL 08-25-2014 PRATT SCREENING [facility] MALIGNANT INC NEOPLASM OF PROSTATE V5861 LONG-TERM 05-25-2014 COMBINED (CURRENT) PHYSICIANS USE OF [place] ANTICOAGULA NTS 56387 DIAB W/O 04-03-2014 CLINIC COMP TYPE PHARMACY II/UNS NOT STATED UNCNTRL 4019 UNSPECIFIED 01-30-2014 PRATT ESSENTIAL [facility] HYPERTENSIO INC N [id number] Constipatio [facility] 272.4 Hyperlipide [facility] 276.1 Hyponatremi [facility] 276.8 Hypokalemia [facility] 401.1 Benign [facility] n [id number] Diabetes [place] mellitus [address] 453.40 Deep venous [place] thrombosis [facility] extremity 482.1 Pneumonia [place] due to [facility] [address] Community [facility] [id number] Active [facility] 593.9 Renal [place] impairment [facility] 780.57 Sleep apnea [facility] 799.02 Hypoxia [facility] [id number] Chronic [facility] E11.9 TYPE 2 DIABETES MELLITUS WITHOUT COMPLICATIO NS E78.4 OTHER HYPERLIPIDE [facility] J20.9 ACUTE BRONCHITIS, UNSPECIFIED J44.1 CHRONIC [...] 00 07 1 No XA 45 -2 OK 62 7- Lo O 02 20 ng 20 06 13 er 3 MG Ac ti TA ve BL ET OK 00 07 1 No ED 05 -2 [...] 00 07 1 No XA 45 -2 OK 62 5- Lo O 02 20 ng [...] RO 07 -2 SE 90 4- Lo PR 07 20 ng DE 22 13 er [...] 51 07 4 No TO 07 -2 OK 90 4- Lo OL 25 20 ng OL 52 13 er 0 TA Ac RT ti RA ve TE 25 MG TA B PA 51 07 4 No NT 07 -2 OP 90 4- Lo RA 05 20 ng ZO 12 13 er LE 0 Ac SO ti D ve DR 40 MG TA B OK 51 07 4 No AV 07 -2 [...] RO 07 -1 SE 90 2- Lo PR 07 20 ng DE 22 13 er [...] 00 06 4 No XA 45 -1 OK 62 2- Lo O 02 20 ng [...] ti 10 ve MG TA BL ET OK 00 06 5 No ED 05 -1 [...] 51 06 5 No TO 07 -1 OK 90 1- Lo OL 25 20 ng [...] 0, 00 0 UN IT S/ 5M OK 00 04 3 No ED 05 -1 [...] 00 04 4 No XA 45 -0 OK 62 9- Lo O 02 20 ng 20 06 13 er 3 MG Ac ti TA ve BL ET FU 51 04 4 No RO 07 -0 SE 90 9- Lo PR 07 20 ng DE 22 13 er [...] 51 04 5 No TO 07 -0 OK 90 8- Lo OL 25 20 ng [...] ti L ve 50 MG TA B OK 00 04 5 No OT 00 -0 [...] 00 04 5 No XA 45 -0 OK 62 3- Lo O 02 20 ng [...] 51 04 6 No TO 07 -0 OK 90 2- Lo OL 25 20 ng [...] nces retati t Range on Glucose BldC Glucomtr-mCwi (10-05-2012 11:32) Glucose 186 70-110 complet BldC 013 mg/dl ed Glucomt 11:32 r-mCnc Glucose dC Glucomtr-[facility] (10-05-2012 06:21) Glucose 204 70-110 complet BldC [...] K/MM3 ed Bld 06:20 Auto Glucose dC Glucom-[facility] (10-03-2012 22:06) Glucose 261 70-110 complet BldC 013 mg/dl ed Glucomt 22:06 r-[facility] Glucose BldC Glucomtr-[facility] (10-03-2012 16:43) Glucose 2 182 70-110 complet BldC 013 mg/dl ed Glucomt 16:43 [facility] (10-03-2012 11:27) Glucose 254 70-110 complet BldC 013 mg/dl ed Glucomt 11:27 [facility] BASIC METABOLIC PANEL (10-03-2012 06:35) Glucose 446 [...] complet 013 mg/dL 1 ed SerPl-m 06:11 [facility] COMPREHENSIVE METABOLIC PANEL (06-13-2012 06:15) Glucose [...] Auto MYCOPLASMA IGM (RAPID) (06-10-2012 19:32) MYCOPLA -02-2 NON-LYNDSAY NONREAC complet SMA IGM 013 CTIVE [...] YOUR DISPENSIN 7 PHARMACY PHARMACY G FEE [employer] INHALATIO N RX; PER 30 DAYS ALBUTEROL J7620 YOUR YOUR TO 2.5 7 PHARMACY PHARMACY [employer] IPRATROPI UM BROM TO 0.5 MG ADMN SET A7003 YOUR YOUR SM VOL 7 PHARMACY PHARMACY NONFILTR [employer] PNEUMAT NEBULIZR DISPBL PRTBLE E0431 DOREEN LOGAN GASEOUS 7 HOME [...] MEDICAL TYPE SIDE EQUIPME EQUIPME RAIL W/MATTRSS PHRM Q0513 YOUR YOUR DISPENSIN 6 PHARMACY PHARMACY [employer] INHALATIO N RX; PER 30 DAYS ALBUTEROL J7620 YOUR YOUR TO 2.5 6 PHARMACY PHARMACY [employer] IPRATROPI UM BROM TO 0.5 MG ADMN SET A7003 YOUR YOUR SM VOL 6 PHARMACY PHARMACY [employer] PNEUMAT NEBULIZR DISPBL BLD GLU A4253 CLINIC CLINIC TEST/REAG 6 PHARMACY PHARMACY T STRIPS HOME BLD GLU MON-50 PRTBLE E0431 DOREEN DUMONTRELL GASEOUS 6 HOME [...] MEDICAL TYPE SIDE EQUIPME EQUIPME RAIL W/MATTRSS PHRM Q0513 YOUR YOUR DISPENSIN 6 PHARMACY PHARMACY [employer] INHALATIO N RX; PER 30 DAYS ALBUTEROL J7620 YOUR YOUR TO 2.5 6 PHARMACY PHARMACY [employer] IPRATROPI UM BROM TO 0.5 MG ADMN SET A7003 YOUR YOUR SM VOL 6 PHARMACY PHARMACY [employer] PNEUMAT NEBULIZR DISPBL PORTABLE E0443 DOREEN DOREEN O2 6 HOME HOME CONTENTS MEDICAL MEDICAL GASEOUS 1 EQUIPME EQUIPME MO SUPPLY=1 UNIT COMPREHEN 92257 [facility] SIVE 6 [facility] METABOLIC INC INC PANEL COLLECTIO 93247 [facility] N VENOUS 6 MEM HOS[facility] BLOOD INC INC VENIPUNCT URE HEMOGLOBI 07395 [facility] [place] N 6 MEM HOS[facility] GLYCOSYLA INC KASSI A1C LIPID 74252 [facility] PANEL 6 [facility] INC INC BLOOD 91661 [facility] COUNT 6 MEM HOS[facility] MEM [...] 1 EQUIPME EQUIPME MO SUPPLY=1 UNIT NON-INVAS 65234 [facility] ALL NÉSTOR 5 MEDICAL PHYSIOLOG IMAGING IC STUDY ASS EXTREMITY 3 LEVLS COLLECTIO 25784 [facility] N VENOUS 5 [facility] BLOOD INC INC VENIPUNCT URE COMPREHEN 58420 [facility] SIVE 5 [facility] METABOLIC INC INC PANEL PORTABLE E0443 DOREEN DOREEN O2 5 HOME HOME CONTENTS MEDICAL MEDICAL GASEOUS 1 EQUIPME EQUIPME MO SUPPLY=1 UNIT 25 64928 [facility] HYDROXY 5 MEM [facility] INCLUDES [place] [address] [facility] MAGNESIUM 5 [facility] INC INC LIPID 27555 [facility] PANEL 5 [facility] INC INC PROSTATE G0103 [facility] CANCER 5 [facility] SCREENING INC INC ; PSA TEST BLOOD 70453 [facility] COUNT 5 MEM [facility] MEM [...] 1 EQUIPME EQUIPME MO SUPPLY=1 UNIT BASIC 61017 COMBINED COMBINED METABOLIC 5 PHYSICIAN PHYSICIAN PANEL S LA S LA CALCIUM TOTAL PORTABLE E0443 DOREEN DOREEN O2 5 HOME HOME CONTENTS MEDICAL MEDICAL GASEOUS 1 EQUIPME EQUIPME MO SUPPLY=1 UNIT BLD GLU A4253 CLINIC CLINIC TEST/REAG 5 PHARMACY PHARMACY T STRIPS HOME BLD GLU SAT-50 PORTABLE E0443 DOREEN DOREEN O2 5 HOME HOME CONTENTS MEDICAL MEDICAL GASEOUS 1 EQUIPME EQUIPME MO SUPPLY=1 UNIT PORTABLE E0443 DOREEN DOREEN O2 4 HOME HOME CONTENTS MEDICAL MEDICAL GASEOUS 1 EQUIPME EQUIPME MO SUPPLY=1 UNIT LIPID 44779 [facility] PANEL 4 [facility] INC INC HEMOGLOBI 26397 [facility] N 4 [facility] GLYCOSYLA INC INC KASSI A1C BASIC 61125 [facility] METABOLIC 4 [facility] PANEL INC INC CALCIUM TOTAL COLLECTIO 02689 [facility] N VENOUS 4 MEM H[facility] BLOOD INC INC VENIPUNCT URE PORTABLE E0443 DOREEN DOREEN O2 4 HOME HOME CONTENTS MEDICAL MEDICAL GASEOUS 1 EQUIPME EQUIPME MO SUPPLY=1 UNIT BLD GLU A4253 CLINIC CLINIC TEST/REAG 4 PHARMACY PHARMACY T STRIPS HOME BLD GLU 50 DIAB ONLY A5500 CLINIC CLINIC FIT CSTM 4 PHARMACY PHARMACY PREP&SPL SHOE MX DNSITY INSRT FOR DIAB A5513 CLINIC CLINIC ONLY MX 4 PHARMACY PHARMACY DNSITY INSRT CSTM MOLD CSTM EA Encounters Encounter Start End Date Code Location Performer Type Date [facility] SUSA[facility] - OTHER 6 6 [facility] S[facility] - 5 5 [facility] - 4 4 [facility] Inpatient IMP Susana Vivar ([place]) 3 09:04 3 13:35 [facility] Inpatient JAZIEL Vivar ([place]) 3 16:06 3 10:40 [facility] Inpatient JAZIEL Bowen MD (IN) 3 15:03 3 12:00 [facility] Inpatient JAZIEL Bowen MD (IN) 3 19:49 3 15:03 [facility]
--- OUTSIDE RECORDS SUMMARY | 2016-07-07 21:48 | External Medical Summary Rpt ---
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 Machine Collector Name Role Phone DANIELSON ALL, DANIELSON ALL Unavailable Unavailable [facility], Unavailable Unavailable [facility] PHARM[facility], Unavailable Unavailable [facility] Unavailable Unavailable [place], [facility] [place] [facility] Unavailable Unavailable [place], [facility] KIAN AUGUST, Unavailable Unavailable July AUGUST [facility] Unavailable Unavailable INC, [facility] Unavailable Unavailable IMAGING ASS, [facility] MARLEY HAYNES, MARLEY HAYNES [...] 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 [id number] SPONDYLOSIS 11-13-2015 DOREEN W/O HOME 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 M545 LOW BACK 11-13-2015 ODREEN PAIN HOME MEDICAL EQUIPME E119 TYPE 2 10-26-2015 CLINIC DIABETES PHARMACY MELLITUS WITHOUT COMPLICATIO NS I2510 ASHD [place] 07-15-2015 [facility] ARTERY W/O INC ANGINA PECTORIS R030 ELEVATED 07-15-2015 [facility] BLOOD-PRESS [facility] URE READING INC WITHOUT DX HTN 496 CHRONIC 11-25-2014 [facility] AIRWAY HOME OBSTRUCTION MEDICAL NEC EQUIPME 4439 UNSPECIFIED 09-08-2014 [place] [facility] DISEASE 2724 OTHER AND 08-25-2014 [facility] UNSPECIFIED [facility] INC HYPERLIPIDE BRY 01531 OSTEOARTHRO 08-25-2014 [facility] S UNSPEC [facility] WHETHER INC GEN/LOC UNSPEC SITE 7962 ELEVATED BP 08-25-2014 WITHERBEE READING [facility] WITHOUT DX INC HYPERTENSIO N V7644 SPECIAL 08-25-2014 WITHERBEE SCREENING [facility] MALIGNANT INC NEOPLASM OF PROSTATE V5861 LONG-TERM 05-25-2014 COMBINED (CURRENT) PHYSICIANS USE OF [place] ANTICOAGULA NTS 19370 DIAB W/O 04-03-2014 CLINIC COMP TYPE PHARMACY II/UNS NOT STATED UNCNTRL 4019 UNSPECIFIED 01-30-2014 WITHERBEE ESSENTIAL [facility] HYPERTENSIO INC N [id number] Constipatio [facility] 272.4 Hyperlipide [facility] 276.1 Hyponatremi [facility] 276.8 Hypokalemia [facility] 401.1 Benign [facility] n [id number] Diabetes [place] mellitus [address] 453.40 Deep venous [place] thrombosis [facility] extremity 482.1 Pneumonia [place] due to [facility] [address] [facility] [id number] Active [facility] 593.9 Renal [place] impairment [facility] 780.57 Sleep apnea [facility] 799.02 Hypoxia [facility] [id number] Chronic [facility] E11.9 TYPE 2 DIABETES MELLITUS WITHOUT COMPLICATIO NS E78.4 OTHER HYPERLIPIDE [facility] J20.9 ACUTE BRONCHITIS, UNSPECIFIED J44.1 CHRONIC OBSTRUCTIVE [...] 00 07 1 No XA 45 -2 NJ 62 7- Lo O 02 20 ng 20 06 13 er 3 MG Ac ti TA ve BL ET NJ 00 07 1 No ED 05 -2 [...] 00 07 1 No XA 45 -2 NJ 62 5- Lo O 02 20 ng [...] RO 07 -2 SE 90 4- Lo WI 07 20 ng DE 22 13 er [...] 51 07 4 No TO 07 -2 NJ 90 4- Lo OL 25 20 ng OL 52 13 er 0 TA Ac RT ti RA ve TE 25 MG TA B PA 51 07 4 No NT 07 -2 OP 90 4- Lo RA 05 20 ng ZO 12 13 er LE 0 Ac SO ti D ve DR 40 MG TA B NJ 51 07 4 No AV 07 -2 [...] RO 07 -1 SE 90 2- Lo WI 07 20 ng DE 22 13 er [...] 00 06 4 No XA 45 -1 NJ 62 2- Lo O 02 20 ng [...] ti 10 ve MG TA BL ET NJ 00 06 5 No ED 05 -1 [...] 51 06 5 No TO 07 -1 NJ 90 1- Lo OL 25 20 ng [...] 0, 00 0 UN IT S/ 5M NJ 00 04 3 No ED 05 -1 [...] 00 04 4 No XA 45 -0 NJ 62 9- Lo O 02 20 ng 20 06 13 er 3 MG Ac ti TA ve BL ET FU 51 04 4 No RO 07 -0 SE 90 9- Lo WI 07 20 ng DE 22 13 er [...] 51 04 5 No TO 07 -0 NJ 90 8- Lo OL 25 20 ng [...] ti L ve 50 MG TA B NJ 00 04 5 No OT 00 -0 [...] 00 04 5 No XA 45 -0 NJ 62 3- Lo O 02 20 ng [...] 51 04 6 No TO 07 -0 NJ 90 2- Lo OL 25 20 ng [...] nces retati t Range on Glucose BldC Glucomtr-mCnm (10-05-2012 11:32) Glucose 186 70-110 complet BldC 013 mg/dl ed Glucomt 11:32 r-mCnc Glucose dC Glucomtr-[facility] (10-05-2012 06:21) Glucose 204 70-110 complet BldC [...] K/MM3 ed Bld 06:20 Auto Glucose dC Glucom-[facility] (10-03-2012 22:06) Glucose 261 70-110 complet BldC 013 mg/dl ed Glucomt 22:06 r-[facility] Glucose BldC Glucomtr-[facility] (10-03-2012 16:43) Glucose 2 182 70-110 complet BldC 013 mg/dl ed Glucomt 16:43 [facility] (10-03-2012 11:27) Glucose 254 70-110 complet BldC 013 mg/dl ed Glucomt 11:27 [facility] BASIC METABOLIC PANEL (10-03-2012 06:35) Glucose [...] complet 013 mg/dL 1 ed SerPl-m 06:11 [facility] COMPREHENSIVE METABOLIC PANEL (06-13-2012 06:15) Glucose 05-2 [...] YOUR DISPENSIN 7 PHARMACY PHARMACY G FEE [employer] INHALATIO N RX; PER 30 DAYS ALBUTEROL J7620 YOUR YOUR TO 2.5 7 PHARMACY PHARMACY [employer] IPRATROPI UM BROM TO 0.5 MG ADMN SET A7003 YOUR YOUR SM VOL 7 PHARMACY PHARMACY NONFILTR travayl PNEUMAT NEBULIZR DISPBL PRTBLE E0431 DOREEN LOGAN [...] Q0513 YOUR YOUR DISPENSIN 6 PHARMACY PHARMACY [employer] INHALATIO N RX; PER 30 DAYS ALBUTEROL J7620 YOUR YOUR TO 2.5 6 PHARMACY PHARMACY [employer] IPRATROPI UM BROM TO 0.5 MG ADMN SET A7003 YOUR YOUR SM VOL 6 PHARMACY PHARMACY [email or web address] PNEUMAT NEBULIZR DISPBL BLD GLU A4253 [...] Q0513 YOUR YOUR DISPENSIN 6 PHARMACY PHARMACY [employer] INHALATIO N RX; PER 30 DAYS ALBUTEROL J7620 YOUR YOUR TO 2.5 6 PHARMACY PHARMACY [employer] IPRATROPI UM BROM TO 0.5 MG ADMN SET A7003 YOUR YOUR SM VOL 6 PHARMACY PHARMACY [employer] PNEUMAT NEBULIZR DISPBL PORTABLE E0443 DOREEN DOREEN O2 6 HOME HOME CONTENTS MEDICAL MEDICAL GASEOUS 1 EQUIPME EQUIPME MO SUPPLY=1 UNIT COMPREHEN 93906 [facility] SIVE 6 [facility] METABOLIC INC INC PANEL COLLECTIO 24087 [facility]ZA N VENOUS 6 MEM HOS[facility] BLOOD INC INC VENIPUNCT URE HEMOGLOBI 03081 [facility] [place] N 6 MEM HOSP GLYCOSYLA INC KASSI A1C LIPID 47204 [facility] PANEL 6 [facility] H[facility] INC INC BLOOD 13813 [facility] MEZA COUNT 6 MEM HOSP MEM [...] 1 EQUIPME EQUIPME MO SUPPLY=1 UNIT NON-INVAS 84065 [facility] 5 MEDICAL PHYSIOLOG IMAGING IC STUDY ASS EXTREMITY 3 LEVLS COLLECTIO 71273 [facility] N VENOUS 5 [facility] HOS[facility] BLOOD INC INC VENIPUNCT URE COMPREHEN 83113 [facility] SIVE 5 [facility] METABOLIC INC INC PANEL PORTABLE E0443 DOREEN DOREEN O2 5 HOME HOME CONTENTS MEDICAL MEDICAL GASEOUS 1 EQUIPME EQUIPME MO SUPPLY=1 UNIT 25 62759 [facility] HYDROXY 5 [facility] HOS[facility] INCLUDES [place] [address] [facility] MAGNESIUM 5 [facility] INC INC LIPID 02682 [facility] PANEL 5 [facility] INC INC PROSTATE G0103 [facility] CANCER 5 [facility] SCREENING INC INC ; PSA TEST BLOOD 66787 [facility] COUNT 5 MEM HOS[facility] MEM [...] 1 EQUIPME EQUIPME MO SUPPLY=1 UNIT BASIC 22905 COMBINED COMBINED METABOLIC 5 PHYSICIAN PHYSICIAN PANEL [...] 1 EQUIPME EQUIPME MO SUPPLY=1 UNIT LIPID 33369 [facility] PANEL 4 [facility] INC INC HEMOGLOBI 37233 [facility] MEZA N 4 [facility] GLYCOSYLA INC INC KASSI A1C BASIC 63133 [facility] METABOLIC 4 [facility] PANEL INC INC CALCIUM TOTAL COLLECTIO 50678 [facility] MEZA N VENOUS 4 MEM HOS[facility] BLOOD INC INC VENIPUNCT URE PORTABLE [...] End Date Code Location Performer Type Date [facility] - OTHER [address] [facility] - 5 5 [facility] - 4 4 [facility] In[facility] IMP Susana Vivar ([place]) 3 09:04 3 13:35 [facility] Inpatient JAZIEL Vivar ([place]) 3 16:06 3 10:40 [facility] Inpatient JAZIEL Bowen MD (IN) 3 15:03 3 12:00 [facility] Inpatient JAZIEL Bowen MD (IN) 3 19:49 3 15:03 [facility]
--- OUTSIDE RECORDS SUMMARY | 2016-07-07 21:51 | External Medical Summary Rpt ---
Demographics Preferred Language Syriac Marital Status Unknown Pentecostal Affiliation Unknown Race Unknown Ethnic Group Unknown Author Author , Organization [employer] Address Unknown Phone Unavailable Purpose Continuity of Care Document - through 2016 Immunization No patient found.
--- OUTSIDE RECORDS SUMMARY | 2016-07-07 21:51 | External Medical Summary Rpt ---
Author Author , Organization [employer] Address Unknown Phone Unavailable Care Team Providers Care Duty Engineer Name Role Phone DANIELSON ALL, DANIELSON ALL Unavailable [facility]available [facility], [facility]available [facility] [place] [place] Un[facility]available [place] Un[facility] Un[facility], [facility], [facility] ROACH DALLAS, ROACH DALLAS Unavailable Unavailable [facility] Unavailable Unavailable EQU[facility]ME, [facility] Unavailable Unavailable [facility], [facility], Unavailable Unavailable [facility] Purpose Continuity of Care Document - 01-15-2014 through 2016 Problems Code Diagnosis DOS Provider Status J449 CHRONIC 04-25-2016 [facility] 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 [id number] SPONDYLOSIS 11-13-2015 [facility] W/O HOME 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 M545 LOW BACK 11-13-2015 [facility] PAIN HOME MEDICAL EQUIPME E119 TYPE 2 10-26-2015 CLINIC DIABETES PHARMACY MELLITUS WITHOUT COMPLICATIO NS I2510 [facility] [place] 07-15-2015 [facility] CORONARY [facility] ARTERY W/O INC ANGINA PECTORIS R030 ELEVATED 07-15-2015 [facility] BLOOD-PRESS [facility] URE READING INC WITHOUT DX HTN 496 CHRONIC 11-25-2014 [facility] OBSTRUCTION MEDICAL NEC EQUIPME 4439 UNSPECIFIED 09-08-2014 [facility] DISEASE 2724 OTHER AND 08-25-2014 [facility] UNSPECIFIED [facility] INC HYPERLIPIDE BRY 10283 OSTEOARTHRO 08-25-2014 [facility] S UNSPEC [facility] WHETHER INC GEN/LOC UNSPEC SITE 7962 ELEVATED BP 08-25-2014 [facility] READING [facility] WITHOUT DX INC HYPERTENSIO N V7644 SPECIAL 08-25-2014 [facility] SCREENING [facility] MALIGNANT INC NEOPLASM OF PROSTATE V5861 LONG-TERM 05-25-2014 [facility]CURRENT[facility] USE OF [place] ANTICOAGULA NTS 95222 DIAB W/O 04-03-2014 CLINIC COMP TYPE PHARMACY II/UNS NOT STATED UNCNTRL 4019 UNSPECIFIED 01-30-2014 [facility] HYPERTENSIO INC N Procedures Procedure DOS Code Location Performer Comment PRTBLE E0431 [facility] LOGAN GASEOUS 7 HOME HOME O2 SYS MEDICAL MEDICAL RENT; EQUIPME EQUIPME FLWMTR HUMIDFR&M ASK O2 CONC 1 E1390 [facility] LOGAN DEL PORT 7 HOME HOME 85%/>02 MEDICAL MEDICAL CONC AT EQUIPME EQUIPME PRSC FLW RATE PHRM Q0513 YOUR YOUR DISPENSIN 7 PHARMACY PHARMACY [facility] INHALATIO N RX; PER 30 DAYS ADMN SET A7003 YOUR YOUR SM VOL 7 PHARMACY PHARMACY NONFILTR [employer] PNEUMAT NEBULIZR DISPBL ALBUTEROL J7620 YOUR YOUR TO 2.5 7 PHARMACY PHARMACY MG & [employer] IPRATROPI UM BROM TO 0.5 MG [...] YOUR DISPENSIN 6 PHARMACY PHARMACY [facility] INHALATIO N RX; PER 30 DAYS ADMN SET A7003 YOUR YOUR SM VOL 6 PHARMACY PHARMACY NONFIL[facility] LLC PNEUMAT NEBULIZR DISPBL ALBUTEROL J7620 YOUR YOUR TO 2.5 6 PHARMACY PHARMACY MG & [employer] IPRATROPI UM BROM TO 0.5 MG [...] FLW RATE PRTBLE E0431 [facility] DUMONTRELL GASEOUS 6 HOME HOME O2 SYS MEDICAL MEDICAL RENT; EQUIPME EQUIPME FLWMTR HUMIDFR&M ASK HOS BED E0260 [facility] DUMONTRELL SEMI-ELEC 6 HOME HOME W/ANY MEDICAL MEDICAL TYPE SIDE EQUIPME EQUIPME RAIL W/MATTRSS HOS BED E0260 [facility] DUMONTRELL SEMI-ELEC 6 HOME HOME W/ANY MEDICAL MEDICAL TYPE SIDE EQUIPME EQUIPME RAIL W/MATTRSS ADMN SET A7003 YOUR YOUR SM VOL 6 PHARMACY PHARMACY NONFILTR [employer] PNEUMAT NEBULIZR DISPBL PHRM Q0513 YOUR YOUR DISPENSIN 6 PHARMACY PHARMACY G FEE [employer] INHALATIO N RX; PER 30 DAYS ALBUTEROL J7620 YOUR YOUR TO 2.5 6 PHARMACY PHARMACY MG & [facility] LLC IPRATROPI UM BROM TO 0.5 MG PORTABLE E0443 [facility] DUMONTRELL O2 6 HOME HOME CONTENTS MEDICAL MEDICAL GASEOUS 1 EQUIPME EQUIPME MO SUPPLY=1 UNIT COLLECTIO 86691 [facility] Ko VENOUS 6 [facility] BLOOD INC INC VENIPUNCT URE COMPREHEN 16412 [facility] SIVE 6 [facility] METABOLIC INC INC PANEL HEMOGLOBI 59715 [facility] [place] N 6 [facility] GLYCOSYLA INC KASSI A1C LIPID 41237 [facility] PANEL 6 [facility] INC INC BLOOD 44590 [facility] COUNT 6 [facility] MEM [...] 1 EQUIPME EQUIPME MO SUPPLY=1 UNIT NON-INVAS 68216 [place] DANIELSON ALL NÉSTOR 5 MEDICAL PHYSIOLOG IMAGING IC STUDY ASS EXTREMITY 3 LEVLS PORTABLE E0443 [facility] DOREEN O2 5 HOME HOME CONTENTS MEDICAL MEDICAL GASEOUS 1 EQUIPME EQUIPME MO SUPPLY=1 UNIT COLLECTIO 87114 [facility] N VENOUS 5 [facility] BLOOD INC INC VENIPUNCT URE COMPREHEN 15943 [facility] SIVE 5 [facility] METABOLIC INC INC PANEL 25 71218 [facility] HYDROXY 5 [facility] INCLUDES INC [place] [address] [facility] MAGNESIUM 5 [facility] INC LIPID 99446 [facility] PANEL 5 [facility] INC PROSTATE G0103 [facility] CANCER 5 [facility] SCREENING INC INC ; PSA TEST BLOOD 59615 [facility] COUNT 5 [facility] COMPLETE INC INC AUTO&AUTO DIFRNTL WBC PORTABLE E0443 [facility] DOREEN O2 5 HOME HOME CONTENTS MEDICAL MEDICAL GASEOUS 1 EQUIPME EQUIPME MO SUPPLY=1 UNIT PORTABLE E0443 [facility] DOREEN O2 5 HOME HOME CONTENTS MEDICAL MEDICAL GASEOUS 1 EQUIPME EQUIPME MO SUPPLY=1 UNIT BASIC 46467 [facility] METABOLIC 5 PHYSICIAN PHYSICIAN PANEL [...] 1 EQUIPME EQUIPME MO SUPPLY=1 UNIT COLLECTIO 71042 [facility] N VENOUS 4 [facility] BLOOD INC INC VENIPUNCT URE BASIC 60014 [facility] METABOLIC 4 [facility] PANEL INC INC CALCIUM TOTAL LIPID 70388 [facility] PANEL 4 [facility] INC INC HEMOGLOBI 47371 [facility] N 4 [facility] GLYCOSYLA INC INC KASSI A1C PORTABLE E0443 DOREENMARNIE DUMONTRELL O2 4 HOME HOME CONTENTS MEDICAL MEDICAL GASEOUS 1 EQUIPME EQUIPME MO SUPPLY=1 UNIT DIAB ONLY A5500 CLINIC CLINIC FIT CSTM 4 PHARMACY PHARMACY PREP&SPL SHOE MX DNSITY INSRT BLD GLU A4253 CLINIC CLINIC TEST/REAG 4 PHARMACY PHARMACY T STRIPS HOME BLD GLU MON-50 FOR DIAB A5513 CLINIC CLINIC ONLY MX 4 PHARMACY PHARMACY DNSITY INSRT CSTM MOLD CSTM EA Encounters Encounter Start End Date Code Location Performer Type Date [facility] - OTHER 6 6 [facility] - 5 5 [facility] - 5 5 [facility] - 4 4 [facility]
--- OUTSIDE RECORDS SUMMARY | 2016-07-07 21:51 | External Medical Summary Rpt ---
Author Author , Organization [employer] Address Unknown Phone Unavailable Care Team Providers Care Officer Lieutenant Name Role Phone DANIELSON ALL, DANIELSON ALL Unavailable Unavailable [facility], Unavailable [facility]available [facility] [place]available [place], [facility] [place] [facility] Un[facility] Unavailable [place] [place] [facility] Un[facility] Unavailable INC, [facility] Unavailable Unavailable [facility], [facility] ROACH DALLAS, ROACH DALLAS Unavailable Unavailable [facility] Unavailable Unavailable EQU[facility]ME, [facility] Unavailable Unavailable [facility], [facility], Unavailable Unavailable [facility] Purpose Continuity of Care Document - 01-15-2014 through 2016 Problems Code Diagnosis DOS Provider Status J449 CHRONIC 04-25-2016 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 [id number] SPONDYLOSIS 11-13-2015 [facility] W/O HOME 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 M545 LOW BACK 11-13-2015 [facility] PAIN HOME MEDICAL EQUIPME E119 TYPE 2 10-26-2015 CLINIC DIABETES PHARMACY MELLITUS WITHOUT COMPLICATIO NS I2510 [facility] [place] 07-15-2015 [facility] ARTERY W/O INC ANGINA PECTORIS R030 ELEVATED 07-15-2015 [facility] BLOOD[facility]PRESS [facility] URE READING INC WITHOUT DX HTN 496 CHRONIC 11-25-2014 [facility] HOME OBSTRUCTION MEDICAL NEC EQUIPME 4439 UNSPECIFIED 09-08-2014 [facility] DISEASE 2724 OTHER AND 08-25-2014 [facility]NSPECIFIED [facility] INC HYPERLIPIDE BRY 48895 OSTEOARTHRO 08-25-2014 [facility] S UNSPEC [facility] WHETHER INC GEN/LOC UNSPEC SITE 7962 ELEVATED BP 08-25-2014 [facility]ING [facility] WITHOUT DX INC HYPERTENSIO N V7644 SPECIAL 08-25-2014 [facility] SCREENING [facility] MALIGNANT INC NEOPLASM OF PROSTATE V5861 LONG-TERM 05-25-2014 [facility]CURRENT[facility] USE OF [place] ANTICOAGULA NTS 59817 DIAB W/O 04-03-2014 CLINIC COMP TYPE PHARMACY II/UNS NOT STATED UNCNTRL 4019 UNSPECIFIED 01-30-2014 [facility] HYPERTENSIO INC N Procedures Procedure DOS [...] YOUR SM VOL 7 PHARMACY PHARMACY NONFILTR [employer] PNEUMAT NEBULIZR DISPBL ALBUTEROL J7620 YOUR YOUR TO 2.5 7 PHARMACY PHARMACY MG & [employer] IPRATROPI UM BROM TO 0.5 MG [...] YOUR YOUR SM VOL 6 PHARMACY PHARMACY NONFILTokopedia LLC PNEUMAT NEBULIZR DISPBL ALBUTEROL J7620 YOUR YOUR TO 2.5 6 PHARMACY PHARMACY MG [facility] [employer] IPRATROPI UM BROM TO 0.5 MG [...] YOUR SM VOL 6 PHARMACY PHARMACY NONFILTR [employer] PNEUMAT NEBULIZR DISPBL PHRM Q0513 YOUR YOUR DISPENSIN 6 PHARMACY PHARMACY G FEE [employer] INHALATIO N RX; PER 30 DAYS ALBUTEROL J7620 YOUR YOUR TO 2.5 6 PHARMACY PHARMACY [employer] [facility] IPRATROPI UM BROM TO 0.5 MG PORTABLE E0443 [facility] DUMONTRELL O2 6 HOME HOME CONTENTS MEDICAL MEDICAL GASEOUS 1 EQUIPME EQUIPME MO SUPPLY=1 UNIT COLLECTIO 44861 [facility] VENOUS 6 [facility] BLOOD INC INC VENIPUNCT URE COMPREHEN 60566 [facility] SIVE 6 [facility] METABOLIC INC INC PANEL HEMOGLOBI 47525 [facility] [place] N 6 [facility] GLYCOSYLA INC KASSI A1C LIPID 95987 [facility] PANEL 6 [facility] INC INC BLOOD 29216 [facility] COUNT 6 [facility] MEM [...] 1 EQUIPME EQUIPME MO SUPPLY=1 UNIT NON-INVAS 30244 [place] DANIELSON ALL NÉSTOR 5 MEDICAL PHYSIOLOG IMAGING IC STUDY ASS EXTREMITY 3 LEVLS PORTABLE E0443 [facility] DOREEN O2 5 HOME HOME CONTENTS MEDICAL MEDICAL GASEOUS 1 EQUIPME EQUIPME MO SUPPLY=1 UNIT COLLECTIO 82706 [facility] N VENOUS 5 [facility] BLOOD INC INC VENIPUNCT URE COMPREHEN 69567 [facility] SIVE 5 [facility] METABOLIC INC INC PANEL 25 60033 [facility] HYDROXY 5 [facility] INCLUDES [place] [address] [facility] MAGNESIUM 5 [facility] INC INC LIPID 82110 [facility] PANEL 5 [facility] INC INC PROSTATE G0103 [facility] CANCER 5 [facility] SCREENING INC INC ; PSA TEST BLOOD 37747 [facility] COUNT 5 [facility] COMPLETE INC INC AUTO&AUTO DIFRNTL WBC PORTABLE E0443 [facility] DOREEN O2 5 HOME HOME CONTENTS MEDICAL MEDICAL GASEOUS 1 EQUIPME EQUIPME MO SUPPLY=1 UNIT PORTABLE E0443 DOREEN DOREEN O2 5 HOME HOME CONTENTS MEDICAL MEDICAL GASEOUS 1 EQUIPME EQUIPME MO SUPPLY=1 UNIT BASIC 69186 COMBINED COMBINED METABOLIC 5 PHYSICIAN PHYSICIAN PANEL [...] 1 EQUIPME EQUIPME MO SUPPLY=1 UNIT COLLECTIO 89558 [facility] N VENOUS 4 [facility] B[facility]OD INC INC VENIPUNCT URE BASIC 13374 [facility] METABOLIC 4 [facility] PANEL INC INC CALCIUM TOTAL LIPID 93231 [facility] PANEL 4 [facility] INC INC HEMOGLOBI 80333 [facility] N 4 [facility] GLYCOSYLA INC INC KASSI A1C PORTABLE [...] End Date Code Location Performer Type [facility] - OTHER 6 6 [facility] - 5 5 [facility] - 5 5 [facility] - 4 4 [facility]
--- OUTSIDE RECORDS SUMMARY | 2016-07-07 21:51 | External Medical Summary Rpt ---
Demographics Preferred Language Maori Marital Status Unknown Hindu Affiliation Unknown Race Unknown Ethnic Group Unknown Author Author , Organization [employer] Address Unknown Phone Unavailable Purpose Continuity of Care Document - through 2016 Immunization No patient found.
== END 2016-07-05 10:40 | disposition home or self-care (01) ==
LOC: ER 15:55 → 2ND 17:41 → ER 17:41 → 2ND 18:27
PROVIDERS: Emergency Medicine
DX: J44.1 Chronic obstructive pulmonary disease with (acute) exacerbation (principal); J18.9 Pneumonia, unspecified organism; I10 Essential (primary) hypertension; E11.9 Type 2 diabetes mellitus without complications; Z99.81 Dependence on supplemental oxygen; R06.2 Wheezing; R06.00 Dyspnea, unspecified
CPT/HCPCS: G0378

== ENCOUNTER 2017-01-26 09:25 | Emergency (ER) | payer MEDICARE, MEDICAID ==
[~2017-01-26] VITALS: Ht 182.9 cm; Wt 115.7 kg
[~2017-01-26 09:25] MED LIST changes: +CEFUROXIME AXE500 MG PO; +CILOSTAZOL50 MG PO; +GABAPENTIN300 M1 PO; +LACTULOSE10 GM/15 M PO; +LINZESS290 MCG PO; +SINGULAIR 10 MG10 MG PO; +ZITHROMAX Z PA250 MG PO
--- OUTSIDE RECORDS SUMMARY | 2017-01-26 09:36 | External Medical Summary Rpt | CCD ---
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 Name Role Phone July AUGUST, Unavailable Unavailable July Vivar MD, Unavailable Unavailable Chelsea Vivar MD Purpose Continuity of Care Document - 06-10-2012 through 2016 Problems Code Diagnosis DOS Provider Status [id number] Constipatio [facility] 272.4 Hyperlipide [facility] 276.1 Hyponatremi [facility] 276.8 Hypokalemia [facility] 401.1 Benign Donna essential [facility] [id number] Diabetes Donna mellitus [facility] type 2 [facility] 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.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 [facility] extremity 482.1 Pneumonia Donna due to [facility] 486 Community Donna acquired [facility] pneumonia [facility] 496 Chronic [facility] lung [facility] disease [id number] Active [facility] 593.9 Renal Donna impairment [facility] 780.57 Sleep apnea [facility] 799.02 Hypoxia [facility] [id number] Chronic [facility] E11.9 TYPE 2 DIABETES MELLITUS WITHOUT COMPLICATIO NS E78.4 OTHER HYPERLIPIDE [facility] J20.9 ACUTE BRONCHITIS, UNSPECIFIED J44.1 CHRONIC OBSTRUCTIVE PULMONARY DISEASE W (ACUTE) EXACERBATIO N Z12.5 ENCOUNTER FOR SCREENING FOR MALIGNANT NEOPLASM OF PROSTATE Allergies, Adverse Reactions, Alerts Type Drug Allergy Adverse Reaction to Substance Substance Reaction Severity PCN (penicillin) I-HIVES Intermediate Penicillin Unknown Unknown SULFA (sulfonamide) I-HIVES Intermediate Penicillin G Unknown Unknown Medications Na ND Rx Da Fi Fi [...] RO 07 -2 SE 90 4- Lo LA 07 20 ng DE 22 13 er [...] RO 07 -1 SE 90 2- Lo LA 07 20 ng DE 22 13 er [...] RO 07 -0 SE 90 9- Lo LA 07 20 ng DE 22 13 er 0 20 Ac ti MG ve TA BL ET Li 00 04 4 No si 17 -0 no 23 9- Lo pr 75 20 ng il 91 13 er 0 10 Ac MG ti ve Ta bl et Po 00 04 4 No ta 24 -0 ss 50 9- Lo iu 04 20 ng m 10 13 er Ch 1 lo Ac ri ti de ve 10 ME Q TA BL E LO 00 04 4 No VE 07 [...] ve 0. 9% SO IRMA TI ON Po 00 04 0 No ta 24 -0 ss 50 8- Lo iu 04 20 ng m 10 13 er Ch 1 lo Ac ri ti de ve 10 ME Q TA BL E Sa 63 04 5 No li 80 [...] ER ve 30 MG TA BL ET Po 00 04 4 No ta 24 -0 ss 50 3- Lo iu 05 20 ng m 80 13 er Ch 1 lo Ac ri ti de ve 20 ME Q Ta bl e Ga 00 04 5 No ba 17 [...] Order Detail nces retati t Range on Hemoglobin A1c in Blood (10-17-2016 08:39) Hemoglo 6.3 % 0.0% Normal complet bin A1c 017 - ed in 08:39 7.0% Blood Glucose [facility] (10-05-2012 11:32) Glucose 186 70-110 complet BldC 013 mg/dl ed Glucomt 11:32 r-nc Glucose [facility] (10-05-2012 06:21) Glucose 204 70-110 complet BldC 013 mg/dl ed Glucomt 06:21 r-nc Glucose dC [facility] (10-04-2012 20:05) Glucose 290 70-110 complet BldC 013 mg/dl ed Glucomt 20:05 r-[facility] Glucose [facility] (10-04-2012 16:44) Glucose 339 70-110 High complet BldC 013 mg/dl alert ed Glucomt 16:44 r-mCnc Glucose BldC [facility] (10-04-2012 11:59) Glucose 2 203 70-110 complet BldC 013 mg/dl ed Glucomt 11:59 r-[facility] Glucose BldC [facility] (10-04-2012 06:40) Glucose 2 261 70-110 complet BldC 013 mg/dl ed Glucomt 06:40 r-[facility] BASIC METABOLIC PANEL (10-04-2012 06:20) Glucose 2 257 74-106 complet 013 mg/dL ed Bld-mCn [...] Bld 013 M/mm3 ed Auto 06:20 Hgb 10-04-2 10.7 14.1-18 complet Bld-mCn 013 g/dL .0 ed c 06:20 Hct Fr 10-04-2 34.5 % 42.0-52 complet Bld 013 .0 ed 06:20 MCV RBC 10-04-2 86.1 fl 82.2-97 complet 013 .8 ed 06:20 MCH RBC 10-04-2 26.7 pg 27-31.2 complet Qn 013 ed Auto 06:20 MEAN 10-04-2 31.0 31.8-35 complet CORPUSC 013 g/dl .4 ed ULAR 06:20 HGB CONC RDW RBC 10-04-2 15.4 % 11.5-17 complet Auto 013 .5 ed 06:20 Platele 10-04-2 514 142-424 complet t Bld 013 K/mm3 ed Ql 06:20 Manual MEAN 2 6.8 fl 7.4-10. complet PLATELE 013 4 ed T 06:20 VOLUME Granulo 10-04-2 83.2 % 37.0-80 complet cytes 013 .0 ed Fr Bld 06:20 Auto LYMPH % 10-04-2 12.9 % 10-50 complet 013 ed 06:20 Monocyt 10-04-2 3.7 % 1.7-9.3 complet es Fr 013 ed Bld 06:20 Auto Eosinop 07-27-2 0.1 % 0.1-12. complet hil Fr 013 0 ed Bld 06:20 Auto Basophi -27-2 0.1 % 0.1-2.0 complet ls Fr 013 [...] 013 K/mm3 ed Bld 06:20 Auto Basophi 0.0 0-0.2 complet ls # 013 K/MM3 ed Bld 06:20 Auto Glucose BldC Glucomtr-mCnc (10-03-2012 22:06) Glucose 261 70-110 complet BldC 013 mg/dl ed Glucomt 22:06 r-[facility] Glucose BldC Glucomtr-mCnc (10-03-2012 16:43) Glucose 182 70-110 complet BldC 013 mg/dl ed Glucomt 16:43 r-mCnc Glucose BldC Glucomtr-mCnc (10-03-2012 11:27) Glucose 254 70-110 complet BldC 013 mg/dl ed Glucomt 11:27 r-[facility] BASIC METABOLIC PANEL (10-03-2012 06:35) Glucose [...] K/MM3 8 ed Auto 06:35 RBC # 07-26-2 4.02 4.6-6.2 complet Bld 013 M/mm3 ed Auto 06:35 Hgb 10-03-2 10.6 14.1-18 complet Bld-mCn 013 g/dL .0 ed c 06:35 Hct Fr 10-03-2 34.7 % 42.0-52 complet Bld 013 .0 ed 06:35 MCV RBC 10-03-2 86.5 fl 82.2-97 complet 013 .8 ed 06:35 MCH RBC 10-03-2 26.5 pg 27-31.2 complet Qn 013 ed Auto 06:35 MEAN 07--2 30.6 31.8-35 complet CORPUSC 013 g/dl .4 ed ULAR 06:35 HGB CONC RDW RBC 10-03-2 15.3 % 11.5-17 complet Auto 013 .5 ed 06:35 Platele -26-2 499 142-424 complet t Bld 013 K/mm3 ed Ql 06:35 Manual MEAN 10-03-2 7.0 fl 7.4-10. complet PLATELE 013 4 ed T 06:35 VOLUME Granulo -26-2 90.1 % 37.0-80 complet cytes 013 .0 ed Fr Bld 06:35 Auto LYMPH % 07-26-2 7.0 % 10-50 complet 013 ed 06:35 Monocyt 07-26-2 2.5 % 1.7-9.3 complet es Fr 013 [...] 013 ed 06:35 PROTIME/INR (10-02-2012 04:30) PROTHRO 07-25-2 17.2 9.9-11. complet MBIN 013 SECONDS 6 ed TIME 04:30 INR Bld 25-2 1.60 0.9-1.1 complet 013 UNK ed 04:30 CBC with AUTO DIFF (10-02-2012 04:30) WBC # 07-25-2 13.5 4.8-10. complet Bld 013 K/MM3 8 ed Auto 04:30 RBC # 07-25-2 3.92 4.6-6.2 complet Bld 013 M/mm3 ed Auto 04:30 Hgb -25-2 10.4 14.1-18 complet Bld-mCn 013 g/dL .0 ed c 04:30 Hct Fr 25-2 33.8 % 42.0-52 complet Bld 013 .0 ed 04:30 MCV RBC 0725-2 86.3 fl 82.2-97 complet 013 .8 ed 04:30 MCH RBC 07-25-2 26.6 pg 27-31.2 complet Qn 013 ed Auto 04:30 MEAN 07-25-2 30.8 31.8-35 complet CORPUSC 013 g/dl .4 ed ULAR 04:30 HGB CONC RDW RBC 07-25-2 15.0 % 11.5-17 complet Auto 013 .5 ed 04:30 Platele 07-25-2 387 142-424 complet t Bld 013 K/mm3 ed Ql 04:30 Manual MEAN 07-25-2 6.8 fl 7.4-10. complet PLATELE 013 4 ed T 04:30 VOLUME Granulo 07-25-2 88.1 % 37.0-80 complet cytes 013 .0 [...] 013 K/mm3 ed Bld 04:30 Auto Eosinop 07-25-2 0.1 0.0-0.4 complet hil # 013 K/mm3 ed Bld 04:30 Auto Basophi 07-25-2 0.0 0-0.2 complet ls # 013 K/MM3 ed Bld 04:30 Auto ARTERIAL BLOOD GAS (10-01-2012 08:59) ARTERIA 07-24-2 7.42 7.35-7. complet L PH 013 MMOL/L 45 ed 08:59 ARTERIA 07-24-2 43.6 35.0-45 complet L PCO2 013 MMHG .0 ed 08:59 ARTERIA 07-24-2 59.6 80-100 complet L PO2 013 MMHG ed 08:59 ARTERIA 07-24-2 27.9 22.0-26 complet L HCO3 013 MMOL/L .0 ed 08:59 ARTERIA 07-24-2 29.2 23-27 complet L TCO2 013 MMOL/L ed 08:59 Base 07-24-2 3.5 -2.4-+2 complet excess 013 MMOL/L .3 ed BldA-sC 08:59 nc ARTERIA 24-2 91.7 % 90-100 complet L O2 013 ed SAT 08:59 OXYGEN 24-2 4LPM complet 013 ed 08:59 Arteria -24-2 ACCEPTA complet l 013 BLE ed patency 08:59 Wrist a SOURCE 0724-2 L complet 013 RADIAL ed 08:59 COMPREHENSIVE METABOLIC PANEL (10-01-2012 08:25) Glucose 07-24-2 151 74-106 complet 013 mg/dL ed Bld-mCn 08:25 c BUN 16 7-18 complet Bld-mCn 013 mg/dL ed c 08:25 Creat 1.1 0.8-1.3 complet SerPl-m 013 mg/dL ed Cnc 08:25 ESTIMAT 130 50-200 complet ED 013 ML/MIN ed CREATIN 08:25 INE CLEARAN CE GFR 69 Greater complet (ESTIMA 013 ML/MIN than ed KASSI) 08:25 60 Sodium 132 136-145 complet SerPl-s 013 mmoL/L ed Cnc 08:25 Potassi 4.3 3.5-5.1 complet um 013 mmoL/L ed SerPl-s 08:25 Cnc Chlorid 94 98-107 complet e 013 mmoL/L ed SerPl-s 08:25 Cnc CO2 28 21.0-32 complet SerPl-s 013 mmoL/L .0 ed Cnc 08:25 Calcium 8.2 8.5-10. complet 013 mg/dL 1 ed [...] complet SerPl-c 013 ed Cnc 08:25 ALP 161 U/L 50-136 complet SerPl-c 013 ed Cnc 08:25 D Dimer PPP (10-01-2012 08:25) D Dimer 1480 0-400 High complet PPP 013 ng/mL alert ed 08:25 CBC with AUTO DIFF (10-01-2012 08:25) WBC # 24-2 15.7 4.8-10. complet Bld 013 K/MM3 8 ed Auto 08:25 RBC # 24-2 4.14 4.6-6.2 complet Bld 013 M/mm3 ed Auto 08:25 Hgb 10-01-2 11.1 14.1-18 complet Bld-mCn 013 g/dL .0 ed c 08:25 Hct Fr 2 34.9 % 42.0-52 complet Bld 013 .0 ed 08:25 MCV RBC 2 84.5 fl 82.2-97 complet 013 .8 ed 08:25 MCH RBC 2 26.9 pg 27-31.2 complet Qn 013 ed Auto 08:25 MEAN 2 31.9 31.8-35 complet CORPUSC 013 g/dl .4 [...] ed Fr Bld 08:25 Auto LYMPH % 10-01-2 11.3 % 10-50 complet 013 ed 08:25 Monocyt 24-2 4.9 % 1.7-9.3 complet es Fr 013 ed Bld 08:25 Auto Eosinop 24-2 1.1 % 0.1-12. complet hil Fr 013 0 ed Bld 08:25 Auto Basophi 24-2 0.4 % 0.1-2.0 complet ls Fr 013 ed Bld 08:25 Auto Granulo 24-2 13.0 1.3-8.0 complet cytes # 013 K/mm3 ed Bld 08:25 Auto Lymphoc 24-2 1.8 0.7-4.5 complet ytes Fr 013 K/mm3 ed Bld 08:25 Auto Monocyt 10-01-2 0.8 0.1-1.0 complet es # 013 K/mm3 ed Bld 08:25 Auto Eosinop 10-01-2 0.2 0.0-0.4 complet hil # 013 K/mm3 ed Bld 08:25 Auto Basophi 2 0.1 0-0.2 complet ls # 013 K/MM3 ed Bld 08:25 Auto MYCOPLASMA IGM (RAPID) (10-01-2012 08:24) MYCOPLA 10-01-2 NON-LNYDSAY NONREAC complet SMA IGM 013 CTIVE TIVE [...] SerPl-s 013 mmoL/L ed Cnc 17:50 Potassi 08-19- 3.9 3.5-5.1 complet um 013 mmoL/L ed SerPl-s 17:50 Cnc Chlorid 99 98-107 complet e 013 mmoL/L ed SerPl-s 17:50 Cnc CO2 36 21.0-32 complet SerPl-s 013 mmoL/L .0 ed Cnc 17:50 Calcium 08-19- 8.6 8.5-10. complet 013 mg/dL 1 ed SerPl-m 17:50 Cnc CBC with AUTO DIFF (08-19-2012 17:50) WBC # 11-2 10.3 4.8-10. complet Bld 013 K/MM3 8 ed Auto 17:50 RBC # 11-2 4.93 4.6-6.2 complet Bld 013 M/mm3 ed Auto 17:50 Hgb 08-19- 13.4 14.1-18 complet Bld-mCn 013 g/dL .0 ed c 17:50 Hct Fr 42.2 % 42.0-52 complet Bld 013 .0 ed 17:50 MCV RBC 08-19- 85.6 fl 82.2-97 complet 013 .8 ed 17:50 MCH RBC 08-19-2 27.3 pg 27-31.2 complet Qn 013 ed Auto 17:50 MEAN 08-19- 31.9 31.8-35 complet CORPUSC 013 g/dl .4 ed ULAR 17:50 HGB CONC RDW RBC 08-19-2 16.0 % 11.5-17 complet Auto 013 .5 ed 17:50 Platele 08-19-2 357 142-424 complet t Bld 013 K/mm3 ed Ql 17:50 Manual MEAN 08-19-2 6.6 fl 7.4-10. complet PLATELE 013 4 ed T 17:50 VOLUME Granulo 08-19- 68.5 % 37.0-80 complet cytes 013 .0 ed Fr Bld 17:50 Auto LYMPH % 08-19-2 22.1 % 10-50 complet 013 ed 17:50 Monocyt 08-19-2 4.7 % 1.7-9.3 complet es Fr 013 ed Bld 17:50 Auto Eosinop -11-2 4.3 % 0.1-12. complet hil Fr 013 0 ed Bld 17:50 Auto Basophi -11-2 0.5 % 0.1-2.0 complet ls Fr 013 ed Bld 17:50 Auto Granulo -11-2 7.1 1.3-8.0 complet cytes # 013 K/mm3 ed Bld 17:50 Auto Lymphoc -11-2 2.3 0.7-4.5 complet ytes Fr 013 K/mm3 ed Bld 17:50 Auto Monocyt -11-2 0.5 0.1-1.0 complet es # 013 K/mm3 ed Bld 17:50 Auto Eosinop -11-2 0.4 0.0-0.4 complet hil # 013 K/mm3 ed Bld 17:50 Auto Basophi -11-2 0.1 0-0.2 complet ls # 013 K/MM3 [...] ML/MIN than ed KASSI) 06:40 60 Sodium 06-19- 141 136-145 complet SerPl-s 013 mmoL/L ed Cnc 06:40 Potassi 4.2 3.5-5.1 complet um 013 mmoL/L ed SerPl-s 06:40 Cnc Chlorid 101 98-107 complet e 013 mmoL/L ed SerPl-s 06:40 Cnc CO2 36 21.0-32 complet SerPl-s 013 mmoL/L .0 ed Cnc 06:40 Calcium 8.3 8.5-10. complet 013 mg/dL 1 ed SerPl-m 06:40 Cnc CBC with AUTO DIFF (06-19-2012 06:40) WBC # 04-11-2 11.2 4.8-10. complet Bld 013 K/MM3 8 ed Auto 06:40 RBC # 04-11-2 5.22 4.6-6.2 complet Bld 013 M/mm3 ed Auto 06:40 Hgb -11-2 14.3 14.1-18 complet Bld-mCn 013 g/dL .0 ed c 06:40 Hct Fr 11-2 45.7 % 42.0-52 complet Bld 013 .0 ed 06:40 MCV RBC -11-2 87.5 fl 82.2-97 complet 013 .8 ed 06:40 MCH RBC 11-2 27.3 pg 27-31.2 complet Qn 013 ed Auto 06:40 MEAN -11-2 31.2 31.8-35 complet CORPUSC 013 g/dl .4 ed ULAR 06:40 HGB CONC RDW RBC 11-2 14.7 % 11.5-17 complet Auto 013 .5 ed 06:40 Platele 04-11-2 388 142-424 complet t Bld 013 K/mm3 ed Ql 06:40 Manual MEAN 06-19-2 6.6 fl 7.4-10. complet PLATELE 013 4 ed T 06:40 VOLUME Granulo -11-2 80.2 % 37.0-80 complet cytes 013 .0 ed Fr Bld 06:40 Auto LYMPH % 04-11-2 14.3 % 10-50 complet 013 ed 06:40 Monocyt 04-11-2 4.8 % 1.7-9.3 complet es Fr 013 ed Bld 06:40 Auto Eosinop 04-11-2 0.5 % 0.1-12. complet hil Fr 013 0 ed Bld 06:40 Auto Basophi 04-11-2 0.3 % 0.1-2.0 complet ls Fr 013 ed Bld 06:40 Auto Granulo 04-11-2 9.0 1.3-8.0 complet cytes # 013 K/mm3 ed Bld 06:40 Auto Lymphoc 04-11-2 1.6 0.7-4.5 complet ytes Fr 013 K/mm3 ed Bld 06:40 Auto Monocyt 04-11-2 0.5 0.1-1.0 complet es # 013 K/mm3 ed Bld 06:40 Auto Eosinop 0.1 0.0-0.4 complet hil # 013 K/mm3 ed Bld 06:40 Auto Basophi 0.0 0-0.2 complet ls # 013 K/MM3 ed Bld 06:40 Auto BASIC METABOLIC PANEL (06-16-2012 06:11) Glucose 06-16- 127 74-106 complet 013 mg/dL ed Bld-mCn [...] 013 mmoL/L ed SerPl-s 06:11 Cnc CO2 2 37 21.0-32 complet SerPl-s 013 mmoL/L .0 ed Cnc 06:11 Calcium 06-16-2 8.5 8.5-10. complet 013 mg/dL 1 ed SerPl-m 06:11 Cnc COMPREHENSIVE METABOLIC PANEL (06-13-2012 06:15) Glucose 05-2 134 74-106 complet 013 mg/dL ed Bld-mCn 06:15 c BUN 06-13-2 18 7-18 complet Bld-mCn 013 mg/dL ed c 06:15 Creat 06-13-2 0.9 0.8-1.3 complet SerPl-m 013 mg/dL ed Cnc 06:15 ESTIMAT 06-13-2 162 50-200 complet ED 013 ML/MIN ed CREATIN 06:15 INE CLEARAN CE GFR 87 Greater complet (ESTIMA 013 ML/MIN than ed KASSI) 06:15 60 Sodium -05-2 141 136-145 complet SerPl-s 013 mmoL/L ed Cnc 06:15 Potassi 04-05-2 5.1 3.5-5.1 complet um 013 mmoL/L ed SerPl-s 06:15 Cnc Chlorid 05-2 102 98-107 complet e 013 mmoL/L ed SerPl-s 06:15 Cnc CO2 05-2 37 21.0-32 complet SerPl-s 013 mmoL/L .0 ed Cnc 06:15 Calcium 04-05-2 8.7 8.5-10. complet 013 mg/dL 1 ed SerPl-m 06:15 Cnc Prot 05-2 7.5 6.4-8.2 complet SerPl-m 013 gm/dL ed Cnc 06:15 Albumin 05-2 3.1 3.4-5.0 complet 013 gm/dL ed SerPl-m 06:15 Cnc Globuli 05-2 4.4 1.3-3.2 complet n 013 gm/dL ed Ser-mCn 06:15 c Albumin 05-2 0.7 UNK 1.1-1.8 complet /Glob 013 ed SerPl-m 06:15 Rto Bilirub 05-2 0.3 0.2-1.0 complet 013 mg/dL ed SerPl-m 06:15 Cnc AST 05-2 33 U/L 15-37 complet SerPl-c 013 ed Cnc 06:15 ALT 05-2 50 U/L 30-65 complet SerPl-c 013 ed Cnc 06:15 ALP 05-2 114 U/L 50-136 complet SerPl-c 013 ed Cnc 06:15 CBC with AUTO DIFF (06-13-2012 06:15) WBC # 04-05-2 9.9 4.8-10. complet Bld 013 K/MM3 8 ed Auto 06:15 RBC # 04-05-2 4.77 4.6-6.2 complet Bld 013 M/mm3 ed Auto 06:15 Hgb -05-2 13.2 14.1-18 complet Bld-mCn 013 g/dL .0 ed c 06:15 Hct Fr 05-2 41.9 % 42.0-52 complet Bld 013 .0 ed 06:15 MCV RBC -05-2 87.9 fl 82.2-97 complet 013 .8 ed 06:15 MCH RBC -05-2 27.6 pg 27-31.2 complet Qn 013 ed Auto 06:15 MEAN 04-05-2 31.4 31.8-35 complet CORPUSC 013 g/dl .4 ed ULAR 06:15 HGB CONC RDW RBC 05-2 15.0 % 11.5-17 complet Auto 013 .5 ed 06:15 Platele -05-2 296 142-424 complet t Bld 013 K/mm3 ed Ql 06:15 Manual MEAN 05-2 6.8 fl 7.4-10. complet PLATELE 013 4 ed T 06:15 VOLUME Granulo -05-2 82.6 % 37.0-80 complet cytes 013 .0 ed Fr Bld 06:15 Auto LYMPH % 04-05-2 12.1 % 10-50 complet 013 ed 06:15 Monocyt -05-2 4.8 % 1.7-9.3 complet es Fr 013 [...] 013 mg/dL ed Bld-mCn 06:17 c BUN 06-12-2 20 7-18 complet Bld-mCn 013 mg/dL ed c 06:17 Creat 06-12-2 0.9 0.8-1.3 complet SerPl-m 013 mg/dL ed Cnc 06:17 ESTIMAT 06-12-2 162 50-200 complet ED 013 ML/MIN ed CREATIN 06:17 INE CLEARAN CE GFR 87 Greater complet (ESTIMA 013 ML/MIN than ed KASSI) 06:17 60 Sodium 06-12- 137 136-145 complet SerPl-s 013 mmoL/L ed [...] with AUTO DIFF (06-11-2012 06:05) WBC # 04-03-2 6.5 4.8-10. complet Bld 013 K/MM3 8 ed Auto 06:05 WBC 06-11-2 6.4 complet nRBC 013 K/mm3 ed cor # 06:05 Bld Auto RBC # 0403-2 4.94 4.6-6.2 complet Bld 013 M/mm3 ed Auto 06:05 Hgb 06-11-2 13.3 14.1-18 complet Bld-mCn 013 g/dL .0 ed c 06:05 Hct Fr 06-11-2 42.4 % 42.0-52 complet Bld 013 .0 ed 06:05 MCV RBC 06-11-2 85.9 fl 82.2-97 complet 013 .8 ed 06:05 MCH RBC 06-11- 27.0 pg 27-31.2 complet Qn 013 ed Auto 06:05 MEAN 31.4 31.8-35 complet CORPUSC 013 g/dl .4 ed ULAR 06:05 HGB CONC RDW RBC 03-2 15.2 % 11.5-17 complet Auto 013 .5 ed 06:05 Platele -03-2 223 142-424 complet t Bld 013 K/mm3 ed Ql 06:05 Manual MEAN 2 6.8 fl 7.4-10. complet PLATELE 013 4 ed T 06:05 VOLUME Granulo -03-2 85.9 % 37.0-80 complet cytes 013 .0 ed Fr Bld 06:05 Auto LYMPH % -03-2 10.9 % 10-50 complet 013 ed 06:05 Monocyt 04-03-2 2.7 % 1.7-9.3 complet es Fr 013 ed Bld 06:05 Auto Eosinop -03-2 0.4 % 0.1-12. complet hil Fr 013 0 ed Bld 06:05 Auto Basophi -03-2 0.1 % 0.1-2.0 complet ls Fr 013 ed Bld 06:05 Auto Granulo -03-2 5.6 1.3-8.0 complet cytes # 013 K/mm3 ed Bld 06:05 Auto Lymphoc -03-2 0.7 0.7-4.5 complet ytes Fr 013 K/mm3 ed Bld 06:05 Auto Monocyt 04-03-2 0.2 0.1-1.0 complet es # 013 K/mm3 ed Bld 06:05 Auto Eosinop 04-03-2 0.0 0.0-0.4 complet hil # 013 K/mm3 ed Bld 06:05 Auto Basophi -03-2 0.0 0-0.2 complet ls # 013 K/MM3 ed Bld 06:05 Auto ARTERIAL BLOOD GAS (06-10-2012 19:54) ARTERIA 04-02-2 7.42 7.35-7. complet L PH 013 MMOL/L 45 ed 19:54 ARTERIA 04-02-2 42.2 35.0-45 complet L PCO2 013 MMHG .0 ed 19:54 ARTERIA 04-02-2 60.8 80-100 complet L PO2 013 MMHG ed 19:54 ARTERIA 04-02-2 26.6 22.0-26 complet L HCO3 013 MMOL/L .0 ed 19:54 ARTERIA 04-02-2 27.9 23-27 complet L TCO2 013 MMOL/L ed 19:54 Base 2 2.0 -2.4-+2 complet excess 013 MMOL/L .3 ed BldA-sC 19:54 nc ARTERIA 92.4 % 90-100 complet L O2 013 ed SAT 19:54 OXYGEN 36%, complet 013 4LPM ed 19:54 VIA N/C Arteria ACCEPTA complet l 013 BLE ed patency 19:54 Wrist a COMPREHENSIVE METABOLIC PANEL (06-10-2012 19:32) Glucose 02- 105 74-106 complet 013 mg/dL ed Bld-mCn 19:32 c BUN 23 7-18 complet Bld-mCn 013 mg/dL ed c 19:32 Creat 1.4 0.8-1.3 complet SerPl-m 013 mg/dL ed Cnc 19:32 ESTIMAT 104 50-200 complet ED 013 ML/MIN ed CREATIN 19:32 INE CLEARAN CE GFR 06-10-2 52 Greater complet (ESTIMA 013 ML/MIN than ed KASSI) 19:32 60 Sodium 06-10-2 133 136-145 complet SerPl-s 013 mmoL/L ed Cnc 19:32 Potassi 3.4 3.5-5.1 complet um 013 mmoL/L ed SerPl-s 19:32 Cnc Chlorid 06-10- 95 98-107 complet e 013 mmoL/L ed SerPl-s 19:32 Cnc CO2 06-10-2 27 21.0-32 complet SerPl-s 013 mmoL/L .0 ed Cnc 19:32 Calcium 06-10-2 8.3 8.5-10. complet 013 mg/dL 1 ed SerPl-m 19:32 Cnc Prot 06-10-2 7.4 6.4-8.2 complet SerPl-m 013 gm/dL ed Cnc 19:32 Albumin 06-10-2 3.2 3.4-5.0 complet 013 gm/dL ed SerPl-m 19:32 Cnc Globuli 2 4.2 1.3-3.2 complet n 013 gm/dL ed Ser-mCn 19:32 c Albumin 04-02-2 0.8 UNK 1.1-1.8 complet /Glob 013 ed SerPl-m 19:32 Rto Bilirub 04-02-2 0.5 0.2-1.0 complet 013 mg/dL ed SerPl-m 19:32 Cnc AST 04-02-2 25 U/L 15-37 complet SerPl-c 013 ed Cnc 19:32 ALT 04-02-2 39 U/L 30-65 complet SerPl-c 013 ed [...] 013 K/mm3 ed Ql 19:32 Manual MEAN 04-02-2 6.8 fl 7.4-10. complet PLATELE 013 4 [...] IGM 013 CTIVE TIVE ed 19:32 (RAPID) Encounters Encounter Start End Date Code Location Performer Type Date Inpatient JAZIEL Vivar ([place]) 3 09:04 3 13:35 [facility] Inpatient [place]AZ[place]EL Vivar [place] 3 16:06 3 10:40 [facility] Inpatient JAZIEL Bow[place] MD ([place] 3 15:03 3 12:00 [facility] Inpatient JAZIEL Bowen MD ([place]) 3 19:49 3 15:03 [facility]
--- OUTSIDE RECORDS SUMMARY | 2017-01-26 09:36 | External Medical Summary Rpt | CCD ---
Author Author , BENJY Organization BENJY Address Unknown Phone [email or web address] Care Team Providers Care Configuration Release Manager Name Role Phone July AUGUST, Unavailable Unavailable July Vivar MD, Unavailable Unavailable Chelsea Vivar MD Purpose Continuity of Care Document - 06-10-2012 through 2016 Problems Code Diagnosis DOS Provider Status [id number] Constipatio [facility] 272.4 Hyperlipide [facility] 276.1 Hyponatremi [facility] 276.8 Hypokalemia [facility] 401.1 Benign [place] essential [facility] [id number] Diabetes [place] mellitus [facility] type 2 [facility] 453.40 Deep venous [place] thrombosis [facility] extremity 482.1 Pneumonia [place] due to [facility] 486 Community [place] acquired [facility] pneumonia [facility] [address] [facility] lung [facility] disease [id number] Active [facility] 593.9 Renal [place] impairment [facility] 780.57 Sleep apnea [facility] 799.02 Hypoxia [facility] [id number] Chronic [facility] E11.9 TYPE 2 DIABETES MELLITUS WITHOUT COMPLICATIO NS E78.4 OTHER HYPERLIPIDE [facility] J20.9 ACUTE BRONCHITIS, UNSPECIFIED J44.1 [...] 00 07 1 No XA 45 -2 ID 62 7- Lo O 02 20 ng 20 06 13 er 3 MG Ac ti TA ve BL ET ID 00 07 1 No ED 05 -2 [...] 00 07 1 No XA 45 -2 ID 62 5- Lo O 02 20 ng [...] RO 07 -2 SE 90 4- Lo HI 07 20 ng DE 22 13 er [...] 51 07 4 No TO 07 -2 ID 90 4- Lo OL 25 20 ng OL 52 13 er 0 TA Ac RT ti RA ve TE 25 MG TA B PA 51 07 4 No NT 07 -2 OP 90 4- Lo RA 05 20 ng ZO 12 13 er LE 0 Ac SO ti D ve DR 40 MG TA B ID 51 07 4 No AV 07 -2 [...] RO 07 -1 SE 90 2- Lo HI 07 20 ng DE 22 13 er [...] 00 06 4 No XA 45 -1 ID 62 2- Lo O 02 20 ng [...] ti 10 ve MG TA BL ET ID 00 06 5 No ED 05 -1 [...] 51 06 5 No TO 07 -1 ID 90 1- Lo OL 25 20 ng [...] 0, 00 0 UN IT S/ 5M ID 00 04 3 No ED 05 -1 [...] 00 04 4 No XA 45 -0 ID 62 9- Lo O 02 20 ng 20 06 13 er 3 MG Ac ti TA ve BL ET FU 51 04 4 No RO 07 -0 SE 90 9- Lo HI 07 20 ng DE 22 13 er [...] 51 04 5 No TO 07 -0 ID 90 8- Lo OL 25 20 ng [...] ti L ve 50 MG TA B ID 00 04 5 No OT 00 -0 [...] 00 04 5 No XA 45 -0 ID 62 3- Lo O 02 20 ng [...] 51 04 6 No TO 07 -0 ID 90 2- Lo OL 25 20 ng [...] - ed in 08:39 7.0% Blood Glucose [facility] (10-05-2012 11:32) Glucose 186 70-110 complet BldC 013 mg/dl ed Glucomt 11:32 r-nc Glucose [facility] (10-05-2012 06:21) Glucose 204 70-110 complet BldC 013 mg/dl ed Glucomt 06:21 r-nc Glucose dC [facility] (10-04-2012 20:05) Glucose 290 70-110 complet BldC 013 mg/dl ed Glucomt 20:05 r-[facility] Glucose [facility] (10-04-2012 16:44) Glucose 339 70-110 High complet BldC 013 mg/dl alert ed Glucomt 16:44 r-mCnc Glucose BldC [facility] (10-04-2012 11:59) Glucose 2 203 70-110 complet BldC 013 mg/dl ed Glucomt 11:59 r-[facility] Glucose BldC [facility] (10-04-2012 06:40) Glucose 2 261 70-110 complet BldC 013 mg/dl ed Glucomt 06:40 r-[facility] BASIC METABOLIC PANEL (10-04-2012 06:20) Glucose 2 [...] complet BldC 013 mg/dl ed Glucomt 22:06 r-[facility] Glucose BldC [facility]comtr-mCnc (10-03-2012 16:43) Glucose 182 70-110 complet BldC 013 mg/dl ed Glucomt 16:43 r-mCnc Glucose BldC [facility] (10-03-2012 11:27) Glucose 254 70-110 complet BldC 013 mg/dl ed Glucomt 11:27 r-[facility] BASIC METABOLIC PANEL (10-03-2012 06:35) [...] JAZIEL Vivar ([place]) 3 09:04 3 13:35 [facility] Inpatient JAZIEL Vivar ([place]) 3 16:06 3 10:40 [facility] Inpatient JAZIEL Bowen MD ([place]) 3 15:03 3 12:00 [facility] Inpatient JAZIEL Bowen MD ([place]) 3 19:49 3 15:03 [facility]
--- OUTSIDE RECORDS SUMMARY | 2017-01-26 09:38 | External Medical Summary Rpt | CCD ---
Author Author [employer] Organization [employer] Address Unknown Phone Unavailable Purpose Continuity of Care Document - through 2016
--- OUTSIDE RECORDS SUMMARY | 2017-01-26 09:38 | External Medical Summary Rpt | CCD ---
Author Author , CRISSY BURLESON Address Unknown Phone [email or web address] Immunization Name Date Rout CVX Reac Dose Comm Prov Is Faci e tion ent ider Refu lity Give sed n Infl 11-0 Intr 0.5 Hist D049 No D049 uenz 3-20 amus mL oric 01 01 a 17 cula al Quad r Info rmat W/Pr ion es - Sour ce Unsp ecif ied
--- OUTSIDE RECORDS SUMMARY | 2017-01-26 09:38 | External Medical Summary Rpt ---
Author Author [facility] [employer], [facility] [employer] Organization [facility] Address Unknown Phone Unavailable Results Comprehensive metabolic 2000 panel in Serum or Plasma Observa Value Referen Units Interpr Notes Date tion ce etation Range Albumin/G 1.1 - 1.8 No Low No Oct 17 lobulin informati informati 2016 8:39 [Mass on in on in AM ratio] in source source Serum or data data Plasma Albumin 3.4 - 5.0 gm/dL Normal No Oct 17 [Mass/vol informati 2016 8:39 ume] in on in AM Serum or source Plasma data Alkaline 46 - 116 U/L High No Oct 17 phosphata informati 2016 8:39 se on in AM [Enzymati source c data activity/ volume] in Serum or Plasma Bilirubin 0.2 - 1.0 mg/dL Normal No Oct 17 .total informati 2016 8:39 [Mass/vol on in AM ume] in source Serum or data Plasma Urea 7 - 18 mg/dL Normal No Oct 17 nitrogen informati 2016 8:39 [Mass/vol on in AM ume] in source Serum or data Plasma Calcium 8.5 - mg/dL Normal No Oct 17 [Mass/vol 10.1 informati 2016 8:39 ume] in on in AM Serum or source Plasma data Chloride 98 - 107 mmoL/L Normal No Oct 17 [Moles/vo informati 2017 8:39 lume] in on in AM Serum or source Plasma data Carbon 21.0 - mmoL/L Normal No Oct 17 dioxide, 32.0 informati 2016 8:39 total on in AM [Moles/vo source lume] in data Serum or Plasma Creatinin 0.70 - mg/dL Normal No Oct 17 e 1.30 informati 2016 8:39 [Mass/vol on in AM ume] in source Serum or data Plasma Estimated >60 ML/MIN No REFERENCE Oct 17 informati RANGE: 2017 8:39 glomerula on in >60 AM r source ML/MIN/1. filtratio data 73 SQUARE n rate METERSIf (GF this patient is -A merican, then multiply theresult by 1.210. Globulin 1.3 - 3.2 gm/dL High No Oct 17 [Mass/vol informati 2016 8:39 ume] in on in AM Serum source data Glucose 74 - 106 mg/dL High No Oct 17 [Mass/vol informati 2016 8:39 ume] in on in AM Serum or source Plasma data Potassium 3.5 - 5.1 mmoL/L Normal No Oct 17 informati 2016 8:39 [Moles/vo on in AM lume] in source Serum or data Plasma Sodium 136 - 145 mmoL/L Normal No Oct 17 [Moles/vo informati 2016 8:39 lume] in on in AM Serum or source Plasma data Aspartate 15 - 37 U/L Low No Oct 17 informati 2016 8:39 aminotran on in AM sferase source [Enzymati data c activity/ volume] in Serum or Plasma Alanine 12 - 78 U/L Normal No Oct 17 aminotran informati 2016 8:39 sferase on in AM [Enzymati source c data activity/ volume] in Serum or Plasma Protein 6.4 - 8.2 gm/dL Normal No Oct 17 [Mass/vol informati 2016 8:39 ume] in on in AM Serum or source Plasma data Lipid 1996 panel in Serum or Plasma Observa Value Referen Units Interpr Notes Date tion ce etation Range Cholester < 200 mg/dL No No Oct 17 ol informati informati 2017 8:39 [Moles/vo on in on in AM lume] in source source Unspecifi data data ed specimen Cholester 40 - 60 MG/DL Low No Oct 17 ol in HDL informati 2017 8:39 on in AM [Mass/vol source ume] in data Serum or Plasma Cholester 0 - 130 mg/dL Normal No Oct 17 ol in LDL informati 2017 8:39 on in AM [Mass/vol source ume] in data Serum or Plasma by calculati on Triglycer 30 - 200 mg/dL Normal No Oct 17 grace informati 2017 8:39 [Moles/vo on in AM lume] in source Serum or data Plasma Cholester 0 - 40 No Normal No Oct 17 ol in informati informati 2016 8:39 VLDL on in on in AM [Mass/vol source source ume] in data data Serum or Plasma Hemoglobin A1c in Blood Observa Value Referen Units Interpr Notes Date tion ce etation Range Hemoglo 6.3 0.0 - % Normal < 6% Oct 17 bin A1c 7.0 NON-EFREM 2016 in NAVEED 8:39 AM Blood LEVEL< 7% CONTROL LED DIABETI C LEVEL> 8% POORLY CONTROL LED DIABETI C LEVEL
--- OUTSIDE RECORDS SUMMARY | 2017-01-26 09:38 | External Medical Summary Rpt | CCD ---
Author Author , CRISSY BURLESON Address Unknown Phone [email or web address] Immunization Name Date Rout CVX Reac Dose Comm Prov Is Faci e tion ent ider Refu lity Give sed n Infl 11-0 Intr 0.5 Hist D049 No D049 uenz 3-20 amus mL oric 01 01 a 17 cula al Quad r Info rmat W/Pr ion es - Sour ce Unsp ecif ied
--- NOTE | 2017-01-26 09:46 | Urgent Treatment Center Report ---
History of Present Issue Date/Time Seen by Provider 01/26/17 0911 Visit Reason Pt arrived:Wheelchair Presenting Problem:PT C/O SOA, PRODUCTIVE COUGH, WEAKNESS, AND FEVE X3 DAYS Location if Accident: Onset of symptoms date/time:/ or onset unknown for:MEDICAL HX UNKNOWN Have you (or family members/close friends) recently traveled outside the [place]? N If Yes, where/when: Have you had exposure to infectious disease within the past month? TB? Other? Specify: Patient state that he has been having eppisodes of shortness of breath, productive cough and fever for 3 days States that last night he seemed to get worse and fever would break and he would be covered in sweat. State that he has history of pneumonia. State that he is on home O2 State that he is coughing up green mucous. Patient sweaty at this time state that he thinks his fever broke again. ALLERGIES Coded Allergies: Penicillins (Mild, 07/03/16) Sulfa (Sulfonamide Antibiotics) (Mild, 07/03/16) Home Medications Active Scripts Metformin HCL (Metformin) 500 MG PO BID #60 TAB Ref 2 Prov: 10/05/12 Cefuroxime Axetil (Cefuroxime) 500 MG PO BID #20 TAB Prov: 07/05/16 Azithromycin (Zithromycin (Z-JIM) 250MG Tab) 250 MG PO DAILY #6 TAB Prov: 07/05/16 Linaclotide (Linzess 290MCG) 290 MCG PO DAILY #30 CAP Prov: 07/05/16 Reported Medications Gabapentin 600 MG PO TID #540 CAPSULE Montelukast Sodium (Singulair 10MG) 10 MG PO QHS Cilostazol 50 MG PO BID FLUTICASONE/SALMETEROL (Advair 250-50 Diskus) 1 PUFF IN BID AMITRIPTYLINE HCL (Amitriptyline HCl) 50 MG PO QHS Furosemide (Lasix 20MG) 20 MG PO DAILY CITALOPRAM HYDROBROMIDE (Citalopram HBr) 40 MG PO DAILY #30 TAB MORPHINE SULFATE SR/ER (Morphine Sulfate ER) 60 MG PO Q12H Diazepam (Valium 5MG) 5 MG PO BIDP Albuterol/Ipratropiu (Duoneb) 3 ML IH BID Sucralfate (Carafate) 1 GM PO BID Ascorbic Acid (Vitamin C) 1,000 mg PO DAILY Lactulose (Lactulose) 10 GM PO BID #300 Aspirin (Aspirin, Chewable) 81 MG PO DAILY Clopidogrel Bisulfate (Plavix) 75 MG PO DAILY LISINOPRIL (Lisinopril) 10 MG PO DAILY Metoprolol Tartrate (Metoprolol) 12.5 MG PO BID Omeprazole (Omeprazole 40MG) 40 MG PO DAILY Simvastatin (Simvastatin 40MG Tab) 40 MG PO QHS Tiotropium [place] (Spiriva) 1 PUFF IH DAILY History Medical History General CAD? Yes Angina: No [place]: Yes Hypertension? Yes Hyperlipidemia? Yes CHF? No DVT? No PE? No COPD? Yes Asthma? No Anemia? No GERD? Yes Gastric ulcers? No GI Bleed? No Hernia? Yes Thyroid Problems? No Hypothyroidism? No CVA? No Seizures? No Diabetes? Yes Insulin Dependent: No Insulin Pump: No Home FSBS? Yes Renal Insuffiency? No UTI? No Stones? No BPH? No GB Disease: Yes Nephritic Syndrome? No Asplenia? No Hepatitis? No Sickle Cell Disease? No Arthritis? No Migraines? No Cataracts? No Glaucoma? No MRSA? No HIV? No TB? No Anxiety? No Depression? Yes Cancer? No More? No Additional hx: PVD Immunization HX DT/Tetanus 5-10 YRS Flu UNKNOWN Pneumonia Received In Past Surgical Hx Previous Surgery?Y HERNIA X3 NECK FUSION 2 VERTEBRAE Family History Family HX Diabetes Yes CAD Yes Hypertension Yes Hyperlipidemia Yes Cancer Yes TB No Social History Smoking Hx Smoker: Never Smoker Tobacco: No Packs/day N/A Alcohol Alcohol: No Review of Systems All Other Systems Reviewed and Negative Constitutional chills, fever Respiratory cough, shortness of breath, wheezing Physical Exam Vital Signs Vital Signs Date Time Temp Pulse Resp B/P Pulse O2 O2 Flow FiO2 Ox Delivery Rate 01/26 0937 97.8 122 22 130/76 92 General Appearance normal appearance, WD/WN, no apparent distress, fever Ear, Nose, Throat Throat red, irritated drainage noted Respiratory Status Yes: trachea midline, chest symmetrical, non tender chest. No: respiratory distress. Lung Sounds bilateral: wheezing. left: rhonchi. right: decreased breath sounds. Cardiovascular normal exam Neurologic alert, normal exam, oriented x 3 Comments state that he often gets pneumonia with the changes of seasons, has had productive cough, fever and chills common symptoms that he often has when he gets pneumonia Medical Decision Making LABS/Meds/Orders Pt receiving controlled substance in ED? No Results/Orders Laboratory Tests 01/26/17 0947: Influenza Type A Ag NOT DETECTED, Influenza Type B Ag NOT DETECTED Current Medication Orders Sig/Josephine Start time Last Medication Dose Route Stop Time Status Admin Levofloxacin 750 MG ONCE ONE 01/26 1030 DC PO 01/26 1031 Albuterol/Ipratropium 0 .STK-MED ONE 01/26 0954 DC INH Albuterol/Ipratropium 3 ML ONCE ONE 01/26 0945 DC 01/26 INH 01/26 0946 1010 Orders Procedure Date/time Status RT Aerosol Treatment, Provide 01/26 1016 Active CULTURE, SPUTUM 01/26 1005 Active [facility] FLU A,B 01/26 0947 Complete RT REQUEST DUONEB 01/26 0942 Active CHEST(2 VIEWS-NOT PORTABLE) 01/26 0942 Active XRAY/CT/US XRAY/CT/US XRAY chest XR interpretation by reviewed by me Xray Results Infiltrate right lower lobe, COPD with chronic changes Comment Discussed with Dr Khan Progress [facility] Progress Notes 1 Comment Discussed medications and treatment regimen with Gene Marks Pharmacist [facility] Progress Notes 2 Comment After nebulizer treatment patient state that he is breathing much better and feels a little better SPO2 95% on 2lps O2 Departure Departure Time of Disposition 1015 Disposition DC Home or Self Care(routine) Clinical Impression Primary Impression: Pneumonia Qualifiers: Pneumonia type: due to unspecified organism Laterality: right Lung location: lower lobe of lung Qualified Code: J18.1 - Lobar pneumonia, unspecified organism Condition STABLE Referrals Chelsea Vivar MD (Family): 1 Day-Call Office Follow up on Saturday if no improvement in symtoms or sooner in ER if worsening of symptoms Patient Instructions Pneumonia-Adult Additional Instructions Take antibiotics as prescribed Follow up with family doctor on Saturday if no improvement of symptoms If symptoms get worse or you began having more trouble breathing go straight to the ER REturn if needed Use nebulizer as prescribed at home and continue with home O2 Discharge Counseling Counseled pt/family regarding diagnosis, test results, medications/RX, home care, follow up needs Prescriptions Current Visit Scripts Guaifenesin (Mucinex) 1,200 MG PO BID #20 TER Levofloxacin (Levaquin 750mg) 750 MG PO DAILY #7 TAB Albuterol Sulfate (Proair Hfa) 2 PUFFS IH QID #1 INH Ref 1 at 7890
--- NOTE | 2017-01-26 09:46 | Urgent Treatment Center Report ---
History of Present Issue Date/Time Seen by Provider 01/26/17 0970 Visit Reason Pt arrived:Wheelchair Presenting Problem:PT C/O SOA, PRODUCTIVE COUGH, WEAKNESS, AND FEVE X3 DAYS Location if Accident: Onset of symptoms date/time:/ or onset unknown for:MEDICAL HX UNKNOWN Have you (or family members/close friends) recently traveled outside the [place]? N If Yes, where/when: Have you had exposure to infectious disease within the past month? TB? Other? Specify: Patient state that he has been having eppisodes of shortness of breath, productive cough and fever for 3 days States that last night he seemed to get worse and fever would break and he would be covered in sweat. State that he has history of pneumonia. State that he is on home O2 State that he is coughing up green mucous. Patient sweaty at this time state that he thinks his fever broke again. ALLERGIES Coded Allergies: Penicillins (Mild, 07/03/16) Sulfa (Sulfonamide Antibiotics) (Mild, 07/03/16) Home Medications Active Scripts Metformin HCL (Metformin) 500 MG PO BID #60 TAB Ref 2 Prov: 10/05/12 Cefuroxime Axetil (Cefuroxime) 500 MG PO BID #20 TAB Prov: 07/05/16 Azithromycin (Zithromycin (Z-JIM) 250MG Tab) 250 MG PO DAILY #6 TAB Prov: 07/05/16 Linaclotide (Linzess 290MCG) 290 MCG PO DAILY #30 CAP Prov: 07/05/16 Reported Medications Gabapentin 600 MG PO TID #540 CAPSULE Montelukast Sodium (Singulair 10MG) 10 MG PO QHS Cilostazol 50 MG PO BID FLUTICASONE/SALMETEROL (Advair 250-50 Diskus) 1 PUFF IN BID AMITRIPTYLINE HCL (Amitriptyline HCl) 50 MG PO QHS Furosemide (Lasix 20MG) 20 MG PO DAILY CITALOPRAM HYDROBROMIDE (Citalopram HBr) 40 MG PO DAILY #30 TAB MORPHINE SULFATE SR/ER (Morphine Sulfate ER) 60 MG PO Q12H Diazepam (Valium 5MG) 5 MG PO BIDP Albuterol/Ipratropiu (Duoneb) 3 ML IH BID Sucralfate (Carafate) 1 GM PO BID Ascorbic Acid (Vitamin C) 1,000 mg PO DAILY Lactulose (Lactulose) 10 GM PO BID #300 Aspirin (Aspirin, Chewable) 81 MG PO DAILY Clopidogrel Bisulfate (Plavix) 75 MG PO DAILY LISINOPRIL (Lisinopril) 10 MG PO DAILY Metoprolol Tartrate (Metoprolol) 12.5 MG PO BID Omeprazole (Omeprazole 40MG) 40 MG PO DAILY Simvastatin (Simvastatin 40MG Tab) 40 MG PO QHS Tiotropium [place] (Spiriva) 1 PUFF IH DAILY History Medical History General CAD? Yes Angina: No [place]: Yes Hypertension? Yes Hyperlipidemia? Yes CHF? No DVT? No PE? No COPD? Yes Asthma? No Anemia? No GERD? Yes Gastric ulcers? No GI Bleed? No Hernia? Yes Thyroid Problems? No Hypothyroidism? No CVA? No Seizures? No Diabetes? Yes Insulin Dependent: No Insulin Pump: No Home FSBS? Yes Renal Insuffiency? No UTI? No Stones? No BPH? No GB Disease: Yes Nephritic Syndrome? No Asplenia? No Hepatitis? No Sickle Cell Disease? No Arthritis? No Migraines? No Cataracts? No Glaucoma? No MRSA? No HIV? No TB? No Anxiety? No Depression? Yes Cancer? No More? No Additional hx: PVD Immunization HX DT/Tetanus 5-10 YRS Flu UNKNOWN Pneumonia Received In Past Surgical Hx Previous Surgery?Y HERNIA X3 NECK FUSION 2 VERTEBRAE Family History Family HX Diabetes Yes CAD Yes Hypertension Yes Hyperlipidemia Yes Cancer Yes TB No Social History Smoking Hx Smoker: Never Smoker Tobacco: No Packs/day N/A Alcohol Alcohol: No Review of Systems All Other Systems Reviewed and Negative Constitutional chills, fever Respiratory cough, shortness of breath, wheezing Physical Exam Vital Signs Vital Signs Date Time Temp Pulse Resp B/P Pulse O2 O2 Flow FiO2 Ox Delivery Rate 01/26 0937 97.8 122 22 130/76 92 General Appearance normal appearance, WD/WN, no apparent distress, fever Ear, Nose, Throat Throat red, irritated drainage noted Respiratory Status Yes: trachea midline, chest symmetrical, non tender chest. No: respiratory distress. Lung Sounds bilateral: wheezing. left: rhonchi. right: decreased breath sounds. Cardiovascular normal exam Neurologic alert, normal exam, oriented x 3 Comments state that he often gets pneumonia with the changes of seasons, has had productive cough, fever and chills common symptoms that he often has when he gets pneumonia Medical Decision Making LABS/Meds/Orders Pt receiving controlled substance in ED? No Results/Orders Laboratory Tests 01/26/17 0947: Influenza Type A Ag NOT DETECTED, Influenza Type B Ag NOT DETECTED Current Medication Orders Sig/Josephine Start time Last Medication Dose Route Stop Time Status Admin Levofloxacin 750 MG ONCE ONE 01/26 1030 DC PO 01/26 1031 Albuterol/Ipratropium 0 .STK-MED ONE 01/26 0954 DC INH Albuterol/Ipratropium 3 ML ONCE ONE 01/26 0945 DC 01/26 INH 01/26 0946 1010 Orders Procedure Date/time Status RT Aerosol Treatment, Provide 01/26 1016 Active CULTURE, SPUTUM 01/26 1005 Active [facility] FLU A,B 01/26 0947 Complete RT REQUEST DUONEB 01/26 0942 Active CHEST(2 VIEWS-NOT PORTABLE) 01/26 0942 Active XRAY/CT/US XRAY/CT/US XRAY chest XR interpretation by reviewed by me Xray Results Infiltrate right lower lobe, COPD with chronic changes Comment Discussed with Dr Khan Progress [facility] Progress Notes 1 Comment Discussed medications and treatment regimen with Gene Marks Pharmacist [facility] Progress Notes 2 Comment After nebulizer treatment patient state that he is breathing much better and feels a little better SPO2 95% on 2lps O2 Departure Departure Time of Disposition 1015 Disposition DC Home or Self Care(routine) Clinical Impression Primary Impression: Pneumonia Qualifiers: Pneumonia type: due to unspecified organism Laterality: right Lung location: lower lobe of lung Qualified Code: J18.1 - Lobar pneumonia, unspecified organism Condition STABLE Referrals Chelsea Vivar MD (Family): 1 Day-Call Office Follow up on Saturday if no improvement in symtoms or sooner in ER if worsening of symptoms Patient Instructions Pneumonia-Adult Additional Instructions Take antibiotics as prescribed Follow up with family doctor on Saturday if no improvement of symptoms If symptoms get worse or you began having more trouble breathing go straight to the ER REturn if needed Use nebulizer as prescribed at home and continue with home O2 Discharge Counseling Counseled pt/family regarding diagnosis, test results, medications/RX, home care, follow up needs Prescriptions Current Visit Scripts Guaifenesin (Mucinex) 1,200 MG PO BID #20 TER Levofloxacin (Levaquin 750mg) 750 MG PO DAILY #7 TAB Albuterol Sulfate (Proair Hfa) 2 PUFFS IH QID #1 INH Ref 1 at 2731
[2017-01-26] MEDS ORDERED: LEVAQUIN 750 M750 MG PO (10:14)
[2017-01-26] MEDS ORDERED: PROAIR HFA0.09 MG/AC IH (10:14)
[2017-01-26] MEDS ORDERED: MUCINEX1200 MG PO (10:14)
[2017-01-26 10:50] VITALS: BP 130/76
--- NOTE | 2017-01-26 12:38 | RADIOLOGY REPORT PS360 ---
CHEST(2 VIEWS-NOT PORTABLE) HISTORY: SOA, PRODUCTIVE COUGH, WEAKNESS, FEVER Patient Age: 61 years: Male Ordering Physician: JERAMY MURPHY APRN TECHNIQUE: PA and lateral chest COMPARISON :07/04/2016 CXR FINDINGS Hyperexpansion, COPD. Right lung. Question and suspect very subtle additional interstitial infiltrate superimposed upon chronic changes at right infrahilar region and into right lower lobe. Lateral film suggests subtle infiltrate towards the RLL lobe and possibly right middle lobe on today's study.,, Particularly when compared today's lateral to previous june exam. Clinical correlation required. Again area of linear scarring is seen right midlung extending towards right lung base. Unchanged since prior study. Mild vascular engorgement but no overt CHF similar to previous studies Left lung appears stable. Left lung base appears stable unchanged again noted mild chronic changes. Mild hyperexpansion. The heart aurelio and mediastinal structures with no appreciable change. Old calcified hilar nodes from old granulomatous disease. No pneumothorax. No pleural effusion. No dense consolidation. Chest wall and ribs unremarkable on this chest film. Previous anterior fusion lower C-spine Again area of linear scarring is seen right midlung extending towards right lung base. Unchanged since prior study. Mild vascular engorgement but no overt CHF similar to previous studies.. . IMPRESSION: COPD. Underlying Chronic changes. Question/ suspect very subtle interstitial infiltrate ,, superimposed upon chronic changes right lung base. ... Clinical correlation required Left lung appears stable.
== END 2017-01-26 10:51 | disposition home or self-care (01) ==
LOC: UTC 09:25
DX: J18.1 Lobar pneumonia, unspecified organism (principal); Z88.0 Allergy status to penicillin; Z88.2 Allergy status to sulfonamides; I10 Essential (primary) hypertension; K21.9 Gastro-esophageal reflux disease without esophagitis; E11.9 Type 2 diabetes mellitus without complications